=== PATIENT | female | born 1985 | race Caucasian/White ===

== ENCOUNTER 2016-10-03 11:15 | Observation (INO) | payer MEDICAID, SELFPAY ==
[2016-10-03 11:29] VITALS: BMI 23.6
[2016-10-03 11:40] VITALS: BMI 23.6
[2016-10-03 11:53] VITALS: BP 111/64; PULSE 85; RESP 16; TEMP 36.8; O2SAT 100
[2016-10-03 11:58] VITALS: RESP 16
--- NOTE | 2016-10-03 12:08 | HP.PCM_ITS ---
Problem List (1) Opiate withdrawal Status: Acute (2) Heroin abuse Status: Chronic (3) Methamphetamine abuse Status: Chronic (4) Abscess Status: Acute History of Present Illness Date of Admission: 10/03/16 Chief Complaint: heroin withdrawal The patient is a 31 year old F presents voluntarily for acute heroin withdrawal. Patient last use was yesterday. Patient injects heroin and also methamphetamines. Patient denies any other illicit substance use. Patient since her last use, has been having abdominal cramps, restlessness, rhinitis, general malaise. Patient voluntarily presenting for acute heroin withdrawal [ treatment.] Past Medical History Past Medical History (Chronic Problems): Chronic Problems Heroin abuse (Chronic) Methamphetamine abuse (Chronic) Allergies No Known Allergies Allergy (Verified 10/01/16 15:41) Home Medications: Ambulatory Orders Medication Instructions Recorded Smz/Tmp Ds [Bactrim Ds] 1 tablet PO BID #20 tablet 10/01/16 Smoking Status: Current every day smoker Tobacco Use: Cigarettes Alcohol: Heavy Drugs: Heroin, - - Methamphetamines - *Family History Maternal History Items: - - No medical problems Paternal History Items: Cancer - from possible lymphoma Review of Systems Constitutional: Denies: Chills, Fever Eyes: Denies: Blurred vision, Double vision HEENT: Reports: - - Rhinitis. Denies: Head Aches, Sinus Congestion, Sinus Drainage Cardiovascular: Reports: Chest Pain, Claudication, Chest Pressure, Chest Tightness Respiratory: Denies: Shortness of Breath Gastrointestinal: Reports: - - Abdominal cramps. Denies: Nausea, Vomiting Neurological: Reports: - - Restlessness of the lower extremities VTE Information - Inpt Only VTE Present on Admission: No Patient Problems: Active and Suspected Problems Abscess (Acute) Opiate withdrawal (Acute) - Physical Exam General: Alert, Cooperative, No apparent distress, - - Appears much older than stated age HEENT: Atraumatic, Normocephalic Neck: No Nodes, Thyroid Normal Size and Texture Lungs: Clear to auscultation, Normal air movement, No rhonchi, No wheeze Cardiovascular: Regular rate, Regular Rhythm, Normal S1, Normal S2, No murmurs Abdomen: Bowel Sounds Present, Soft, Non Tender, Non-Distended, No Hepato- splenomegaly Extremities: No edema, No Calf Tenderness Skin: - - Swelling in the dorsum of her right hand that is erythematous minimally tender. No fluctuance noted no induration. Patient also has some superficial purulent material in the left antecubital not a definitive abscess at approximately 2 cm by half a centimeter. Patient has a open wound with an eschar in the right antecubital region. No purulent material expressed. Musculoskeletal: No Tenderness to Palpation of Joints or Extremities, No Muscle Wasting Psych/Mental Status: Normal Affect, Appropriate Vital Signs Temp Pulse Resp BP Pulse Ox 36.8 C 85 16 111/64 100 10/03/16 11:53 10/03/16 11:53 10/03/16 11:53 10/03/16 11:53 10/03/16 11:53 Oxygen Delivery Method Room Air Weight: 64.3 kg Body Mass Index (BMI) 23.6 Assessment/Plan Active and Suspected Problems Abscess (Acute) Opiate withdrawal (Acute) 1. Acute heroin withdrawal: Patient voluntary presenting for acute withdrawal treatment. Patient will be initiated on the medical stabilization for opiate withdrawal. Patient will be on the Subutex taper in addition, patient will be on other medications to help her with her other constitutional symptoms. 2. Right arm wound. Positive for methicillin sensitive staph aureus. Continue with Bactrim. Blood cultures were performed on the and are so far negative. Will monitor the wounds on her right arm as well as her left antecubital area. No concern for deep abscess at this point time.
[2016-10-03] MEDS: cloNIDine HCl 0.1 MG Tablet 0.2 MG PO (12:17)
[2016-10-03] MEDS: Buprenorphine HCl 2 MG TAB.SUBL SL ×2 (12:17→19:29)
[2016-10-03] MEDS: 0.9% Normal Saline 1,000 ML 125 ML IV (12:29)
[2016-10-03 12:59] LABS: Absolute Neutrophil Count 2.8 X10^3/uL (2.0-7.7); Basophil# 0.05 X10^3/uL; Basophil% 0.8 % (0-1); Eosinophil# 0.33 X10^3/uL; Eosinophils% 5.5 % (0-5); Hematocrit 39.3 % (37-47); Hemoglobin 12.6 g/dl (12.0-15.0); Lymphocyte % 38.2 % (19-41); Mean Corp Hgb Conc 32.1 g/gl (32-36); Mean Corpuscular Hgb 27.5 pg (27.0-32.0); Mean Corpuscular Volume 85.8 fL (81-99); Mean Platelet Vol. 10.4 fl (6.2-12.0); Monocyte# 0.51 X10^3/uL; Monocyte% 8.5 % (0-10); Neutrophil # 2.83 X10^3/uL (2.7-7.7); Platelet Count 257 K/mm3 (150-450); RBC Distribution Width CV 13.5 % (11.6-14.6); RBC Distribution Width SD 42.5 fl (35.1-43.9); Red Blood Count 4.58 M/mm3 (4.2-5.4)
[2016-10-03 13:00] LABS: POSITIVE COUNT NO; POSITIVE DIFFERENTIAL NO; POSITIVE MORPHOLOGY NO
[2016-10-03 13:12] LABS: ALB/GLOB Ratio 0.9 RATIO (0.9-2.4); AST(SGOT) 8 U/L (15-37); Alanine Aminotransfer ALT/SGPT 14 U/L (12-78); Albumin, Serum 3.6 g/dL (3.4-5.0); Alkaline Phosphatase 69 U/L (45-117); Anion Gap 5 (5-15); BUN 10 mg/dL (7-18); Calcium,Total 8.5 mg/dL (8.5-10.1); Chloride 106 mmol/L (98-107); Creatinine, Serum 0.72 mg/dL (0.55-1.02); EST Glomerular Filtration Rate 101 mL/min (>60); Est Glom Filt Rate - Afr Amer 122 mL/min (>60); Estimated Creatinine Clearance 101.87 ml/min; Globulin 3.8 g/dL (2.3-3.5); Glucose 82 mg/dL (70-110); Potassium 3.6 mmol/L (3.5-5.1); Protein, Total 7.4 g/dL (6.4-8.2); Sodium Level 139 mmol/L (136-145)
[2016-10-03 13:19] LABS: Pregnancy, Serum, hCG Quali. NEGATIVE Negative (0-9 Nonpreg)
[2016-10-03 15:19] VITALS: BP 95/44; PULSE 84; RESP 16; TEMP 37.4; O2SAT 98
[2016-10-03 15:24] VITALS: RESP 16
--- NOTE | 2016-10-03 15:43 | CHAPLAIN ---
patient is trying to nap; pt reports that she is not feeling very good; I give pt my name and information about support; offer to be available to pt; pt says that she will keep that in mind and takes my card; pt says that she has family;
[2016-10-03] MEDS: Tuberculin,Purif.prot.deriv. 50 TU/ML Vial 5 ML ID (16:00)
[2016-10-03] MEDS: Smz/Tmp Ds Tablet 1 TABLET PO (18:04)
[2016-10-03 18:06] VITALS: BP 112/60; PULSE 81; RESP 16; TEMP 36.2
[2016-10-03] MEDS: Methocarbamol 750 MG Tablet PO (18:14)
[2016-10-03 19:04] LABS: Amphetamine Urine VISTA NEGATIVE (<1000 ng/mL); Barbiturate Urine VISTA NEGATIVE (< 200 ng/mL); Benzodiazepine Urine VISTA NEGATIVE (< 200 ng/mL); Cocaine Urine VISTA NEGATIVE (< 300 ng/mL); Ecstacy Urine VISTA NEGATIVE (< 500 ng/mL); Methadone Urine VISTA NEGATIVE (< 300 ng/mL); PCP Urine VISTA NEGATIVE (< 25 ng/mL); THC Urine VISTA NEGATIVE (< 50 ng/mL); Vista UDS pH Range 8
[2016-10-03 21:38] VITALS: BP 110/56; PULSE 65; RESP 14; TEMP 37.2
[2016-10-03] MEDS: Carbidopa/Levodopa 25/100 Tablet PO (22:47)
[2016-10-04] VITALS (8 sets, daily range): BP systolic 110–132; BP diastolic 55–71; PULSE 61–90; RESP 14–18; TEMP 36.7–37.4; O2SAT 97–99
[2016-10-04] MEDS: Buprenorphine HCl 2 MG TAB.SUBL SL ×3 (04:24→20:40)
--- NOTE | 2016-10-04 08:30 | PCM.PN.HOSP ---
Patient Problems: Active and Suspected Problems Abscess (Acute) Opiate withdrawal (Acute) Subjective: Feeling better overall. No abdominal pain or cramps. Vitals/I&O's: Vital Signs Temp Pulse Resp BP Pulse Ox 37.4 C 61 18 122/60 98 10/04/16 05:39 10/04/16 05:39 10/04/16 05:39 10/04/16 05:39 10/03/16 15:19 Oxygen Delivery Method Room Air Weight: 64.3 kg Body Mass Index (BMI) 23.6 Intake and Output for Last 24 Hours 10/02/16 10/03/16 10/04/16 23:59 23:59 23:59 Intake Total 1538 Balance 1538 General: Alert, Cooperative, No apparent distress HEENT: Atraumatic, Normocephalic Psych/Mental Status: Flat Affect, - - Middle eye contact Laboratory Results 10/03/16 12:45: WBC 6.0, RBC 4.58, Hgb 12.6, Hct 39.3, MCV 85.8, MCH 27.5, MCHC 32.1, RDW 13.5, RDW Differential 42.5, Plt Count 257, MPV 10.4, Immature Gran % (Auto) 0.000, Neut % (Auto) 47.0, Lymph % (Auto) 38.2, Fergus % (Auto) 8.5, Eos % (Auto) 5.5 H, Baso % (Auto) 0.8, Absolute Neuts (auto) 2.8, Absolute Lymphs (auto) 2.30, Total Counted Not Reportable 10/03/16 12:45: Sodium 139, Potassium 3.6, Chloride 106, Carbon Dioxide 28.0, Anion Gap 5, BUN 10, Creatinine 0.72, Estim Creat Clear Calc 101.87, Est GFR (MDRD) Af Amer 122, Est GFR (MDRD) Non-Af 101, BUN/Creatinine Ratio 14.0, Glucose 82, Calcium 8.5, Total Bilirubin 0.20, AST 8 L, ALT 14, Alkaline Phosphatase 69, Total Protein 7.4, Albumin 3.6, Globulin 3.8 H, Albumin/Globulin Ratio 0.9 10/03/16 12:45: Serum , Qual NEGATIVE 10/03/16 13:05: HIV 1&2 Ag/Ab, 4th Gen Pending 10/03/16 18:20: Urine Opiates Screen POSITIVE H, Urine Methadone Screen NEGATIVE, Ur Barbiturates Screen NEGATIVE, Ur Phencyclidine Scrn NEGATIVE, Ur Amphetamines Screen NEGATIVE, U Methamphetamin-MDMA NEGATIVE, U Benzodiazepines Scrn NEGATIVE, Urine Cocaine Screen NEGATIVE, U Cannabinoids Screen NEGATIVE, Ur Drug Screen Comment Current Medications Acetaminophen (Tylenol) 650 mg PO Q4H PRN PRN PRN Reason: Temp>99.1F Buprenorphine HCl (Buprenorphine Hcl) 4 mg SL Q8H KAREEM PRN Reason: Taper Stop: 10/06/16 15:59 Last Admin: 10/04/16 04:24 Dose: 4 mg Carbidopa/Levodopa (Sinemet) 1 tablet PO Q8H PRN PRN PRN Reason: RESTLESSNESS Last Admin: 10/03/16 22:47 Dose: 1 tablet Clonidine (Catapres) 0.1 mg PO Q2H PRN PRN PRN Reason: Hot/Cold Sweats or Anxiety Dicyclomine HCl (Bentyl) 20 mg PO Q6H PRN PRN PRN Reason: Abdomnial Discomfort Hydroxyzine Pamoate (Vistaril) 50 mg PO Q6H PRN PRN PRN Reason: Mild Anxiety (score 1/3) Ibuprofen (Motrin) 800 mg PO Q8H PRN PRN PRN Reason: Mild-Moderate Pain (1-5/10) Loperamide HCl (Imodium) 2 - 4 mg PO UD PRN PRN Reason: LOOSE STOOLS Methocarbamol (Methocarbamol) 750 mg PO 4X/DAY PRN PRN Reason: Muscle Aches Last Admin: 10/03/16 18:14 Dose: 750 mg Nicotine (Nicoderm Cq (Pbkc)) 21 mg TRANSDERM. DAILY [facility] Last Admin: 10/03/16 12:33 Dose: 21 mg Nutritional Formula (Lactose Free) (Ensure Enlive) 120 ml PO 4X/DAY [facility] Last Admin: 10/03/16 21:41 Dose: 120 ml Ondansetron HCl (Zofran Odt) 4 mg PO Q6H PRN PRN PRN Reason: NAUSEA Senna (Senokot) 1 tablet PO QHS PRN PRN Reason: Constipation Trimethoprim/Sulfamethoxazole (Bactrim Ds) 1 tablet PO BIDCM [facility] Last Admin: 10/03/16 18:04 Dose: 1 tablet Assessment/Plan Active and Suspected Problems Abscess (Acute) Opiate withdrawal (Acute) 1. Acute heroin withdrawal: Patient voluntary presenting for acute withdrawal treatment. Patient will be initiated on the medical stabilization for opiate withdrawal. Patient will be on the Subutex taper in addition, patient will be on other medications to help her with her other constitutional symptoms. 2. Right arm wound. Positive for methicillin sensitive staph aureus. Continue with Bactrim. Blood cultures were performed on the and are so far negative. Will monitor the wounds on her right arm as well as her left antecubital area. No concern for deep abscess at this point time.
[2016-10-04] MEDS: Smz/Tmp Ds Tablet 1 TABLET PO ×2 (09:51→16:47)
[2016-10-04] MEDS: Methocarbamol 750 MG Tablet PO ×2 (09:55→20:40)
[2016-10-04] MEDS: cloNIDine HCl 0.1 MG Tablet PO (17:53)
[2016-10-05 04:00] VITALS: BP 113/68; PULSE 68; RESP 16; TEMP 36.9
[2016-10-05] MEDS: Buprenorphine HCl 2 MG TAB.SUBL SL ×2 (04:02→16:13)
[2016-10-05] MEDS: Methocarbamol 750 MG Tablet PO (04:03)
[2016-10-05] MEDS: cloNIDine HCl 0.1 MG Tablet PO ×2 (04:03→14:17)
[2016-10-05 07:52] LABS: HIV 1/0/2 SCREEN 4TH GEN Non Reactive (Non Reactive)
[2016-10-05 09:05] VITALS: BP 104/63; PULSE 68; RESP 16; TEMP 36.8; O2SAT 97
[2016-10-05] MEDS: Smz/Tmp Ds Tablet 1 TABLET PO ×2 (09:05→16:14)
--- NOTE | 2016-10-05 10:05 | PCM.PN.HOSP ---
Patient Problems: Active and Suspected Problems Abscess (Acute) Opiate withdrawal (Acute) Subjective: Is feeling better. Says her arms are feeling better as well. Vitals/I&O's: Vital Signs Temp Pulse Resp BP Pulse Ox 36.8 C 68 16 104/63 97 10/05/16 09:05 10/05/16 09:05 10/05/16 09:05 10/05/16 09:05 10/05/16 09:05 Oxygen Delivery Method Room Air Weight: 64.3 kg Body Mass Index (BMI) 23.6 Intake and Output for Last 24 Hours 10/03/16 10/04/16 10/05/16 23:59 23:59 23:59 Intake Total 2238 600 Balance 2238 600 General: Alert, Cooperative, No apparent distress HEENT: Atraumatic, Normocephalic Skin: - - Healing right antecubital wounds with a large scab. No purulence. Patient with some swelling in the dorsum of her right hand little bit more fluctuant and less firm than had been previously. Some very superficial pustular lesions in the left antecubital fossa without cellulitis. Laboratory Results 10/03/16 13:05: HIV 1&2 Ag/Ab, 4th Gen Non Reactive Current Medications Acetaminophen (Tylenol) 650 mg PO Q4H PRN PRN PRN Reason: Temp>99.1F Buprenorphine HCl (Buprenorphine Hcl) 2 mg SL Q12H KAREEM PRN Reason: Taper Stop: 10/06/16 15:59 Last Admin: 10/05/16 04:02 Dose: 2 mg Carbidopa/Levodopa (Sinemet) 1 tablet PO Q8H PRN PRN PRN Reason: RESTLESSNESS Last Admin: 10/03/16 22:47 Dose: 1 tablet Clonidine (Catapres) 0.1 mg PO Q2H PRN PRN PRN Reason: Hot/Cold Sweats or Anxiety Last Admin: 10/05/16 04:03 Dose: 0.1 mg Dicyclomine HCl (Bentyl) 20 mg PO Q6H PRN PRN PRN Reason: Abdomnial Discomfort Hydroxyzine Pamoate (Vistaril) 50 mg PO Q6H PRN PRN PRN Reason: Mild Anxiety (score 1/3) Last Admin: 10/05/16 04:03 Dose: 50 mg Ibuprofen (Motrin) 800 mg PO Q8H PRN PRN PRN Reason: Mild-Moderate Pain (1-5/10) Loperamide HCl (Imodium) 2 - 4 mg PO UD PRN PRN Reason: LOOSE STOOLS Methocarbamol (Methocarbamol) 750 mg PO 4X/DAY PRN PRN Reason: Muscle Aches Last Admin: 10/05/16 04:03 Dose: 750 mg Nicotine (Nicoderm Cq (Pbkc)) 21 mg TRANSDERM. DAILY [facility] Last Admin: 10/05/16 09:05 Dose: 21 mg Nutritional Formula (Lactose Free) (Ensure Enlive) 120 ml PO 4X/DAY [facility] Last Admin: 10/05/16 09:05 Dose: Not Given Ondansetron HCl (Zofran Odt) 4 mg PO Q6H PRN PRN PRN Reason: NAUSEA Senna (Senokot) 1 tablet PO QHS PRN PRN Reason: Constipation Trazodone HCl (Desyrel) 50 mg PO QHS [facility] Last Admin: 10/05/16 01:29 Dose: Not Given Trimethoprim/Sulfamethoxazole (Bactrim Ds) 1 tablet PO BIDCM [facility] Last Admin: 10/05/16 09:05 Dose: 1 tablet Assessment/Plan Active and Suspected Problems Abscess (Acute) Opiate withdrawal (Acute) 1. Acute heroin withdrawal: Patient voluntary presenting for acute withdrawal treatment. Patient will be initiated on the medical stabilization for opiate withdrawal. Patient will be on the Subutex taper in addition, patient will be on other medications to help her with her other constitutional symptoms. Plan is for discharge the morning of the 17 of the patient's last dose of Subutex. 2. Right arm wound. Positive for methicillin sensitive staph aureus. Continue with Bactrim. Blood cultures were performed on the and are so far negative. Will monitor the wounds on her right arm as well as her left antecubital area. No concern for deep abscess at this point time. Patient does have some swelling of the dorsum of her right hand. Convinced that this is an abscess at this time. But may warrant incision and drainage at a later time but does further progress.
[2016-10-05 14:00] VITALS: BP 103/66; PULSE 76; RESP 16; TEMP 36.9; O2SAT 98
[2016-10-05 18:15] VITALS: BP 96/49; PULSE 75; RESP 16; TEMP 36.8; O2SAT 96
[2016-10-05] MEDS: traZODone 50 MG Tablet PO (22:08)
[2016-10-05 22:09] VITALS: BP 107/55; PULSE 77; RESP 16; TEMP 36.8
[2016-10-06 03:50] VITALS: BP 93/56; PULSE 66; RESP 16; TEMP 36.7
[2016-10-06] MEDS: Buprenorphine HCl 2 MG TAB.SUBL SL (03:50)
--- NOTE | 2016-10-06 07:06 | PCM.DC ---
- Discharge Diagnoses Current Active Problems: Current Active and Chronic Problems Abscess (Acute) Opiate withdrawal (Acute) Heroin abuse (Chronic) Methamphetamine abuse (Chronic) You will use the following diet at home:: No restrictions Discharge Activity: Return to Normal Activity, - - Recommendation of avoidance of any activities which could cause irritation to the upper extremity wounds to allow appropriate healing in addition to continued antibiotic therapy. Weight Bearing Status: Weight bearing as tolerated Keep extremity elevated above heart level: - - Elevate arms above heart when seated or sleeping while completing antibiotic therapy. Call your doctor if your incision/area has: Continuous Slow Oozing, Increased Pain/ Swelling, Increased Redness, Foul Smelling Discharge Call your doctor if you observe: Fever of 101 or Higher, Inability to urinate, Inability to have a bowel movement, Shortness of breath, Dizziness, Fainting spells, Uncontrolled pain Instructions: Recognizing and Treating Wound Infection, Abscess Drainage, ED Narcotic Abuse Additional Instructions: Please complete bactrim antibiotic therapy. Allergies/Adverse Reactions: Allergies No Known Allergies Allergy (Verified 10/01/16 15:41) Medications to take at Discharge Smz/Tmp Ds [Bactrim Ds] 1 tablet PO BID #20 tablet 10/01/16 Nicotine [Nicoderm Cq] 21 mg TRANSDERM. DAILY #14 patch 10/06/16 The following prescriptions were given: Nicotine [Nicoderm Cq] 21 mg TRANSDERM. DAILY #14 patch Primary Care Physician: Care Physician,No Primary [Primary Care Provider] - Please follow up with your Primary Care Physician in: Please follow-up w/ PCP to establish. Recommend follow-up 3-5 days. Please Follow Up With: [facility] When: Follow-up with [facility] discharge plan as previously arranged. Proposed Discharge Date: 10/06/16
--- NOTE | 2016-10-06 07:09 | PCM.DC.SUM ---
Discharge Date and Diagnosis - Problem List Patient Problems: Active and Suspected Problems Abscess (Acute) Opiate withdrawal (Acute) Date of Admission: 10/03/16 Date of Discharge: 10/06/16 - Primary Discharge Diagnosis Active and Suspected Problems RUE antecubital fossa infection, drained abscess s/p IVDA Acute Opiate withdrawal (Acute) Tobacco use - Secondary Discharge Diagnosis Chronic Problems Heroin abuse (Chronic) Methamphetamine abuse (Chronic) Hospital Course and Treatment Operations: None Procedures: None Summary of Care Provided: The patient is a 31 y/o F w/ PMHx: Heroin, Methamphetamine, Tobacco abuse who presents to the [facility] on 10/03/16 w/ noted opiate withdrawal onset starting the day of presentation following last dose the evening prior with abdominal pain/cramping, generalized body aches and pains, rhinorrhea, piloerection, fatigue, restless leg, sweating, yawning. Patient interested in attaining clean status. Patient was admitted to [facility], routine labs obtained, patient was initiated and continued on [facility] service protocol with tapering course of Subutex, as needed Seroquel, Librium, Sinemet, Catapres, Bentyl, Vistaril, IV fluids, IV antiemetics, Tylenol as needed for pain. Once patient clinically improved with completion of taper felt appropriate for discharge with [facility] assistance for transition to next level of rehabilitation care. Additionally during admission had noted RUE antecubital fossa abscess s/p drainage, healing with start per ED 10/01/16 on bactrim with removal of overlaying scab, wound RN revaluation and cleansing w/ application of aquacel silver planned daily to open region, dry dressing w/ encouraged WCC follow-up 1 week and PCP follow-up 3-5 days additionally. DAY OF DISCHARGE PROGRESS NOTE: Subjective: Patient without acute event overnight per self and nursing report. Patient denies fever, chills, nausea, emesis, abdominal pain, chest pain or dyspnea. Patient agreeable to discharge to home w/ noted ability to have family assist w/ RUE wound care. Patient will be discharged with establishment with primary care physician within 3-5 days in addition to WCC 1 week as well as [facility] rehabilitation plan. Objective: T 97.5, heart rate 65, BP 94/57, 16, 99% room air. Physical Examination: General: awake, alert, oriented x 3 and cooperative, seated upright in the bed, NAD. Skin: normal color, turgor, no icterus, cyanosis except BL antecubital fossa s/p injections regions, R antecubital fossa w/ drained abscess site medially, TTP, removed small circular scab, minimal drainage noted, product operations associate requested. HEENT: AT/NC, EOMI, PERRLA, mildly dry MM. Lungs: CTA bilaterally, moderate effort, mild decrease BL bases, no rales, ronchi or wheezing; Heart: Regular rate and rhythm; no gallop, rub audible. Abdomen: soft, thin habitus, NTTP, ND, normal BS. Extremities: no cyanosis, clubbing, or edema. Neurological: patient awake, alert, oriented x 3; cognitive function appears intact upon questioning,; pupils equally reactive to light and accomodation; cranial nerves II-XII grossly normal, moving all 4 extremities, strength mildly globally decreased. Psychiatric: affect appears normal, no acute evidence of depressive or anxiety feelings. Assessment and Plan: Please see hospital summary above. Discharge Activity: Return to Normal Activity, - - Recommendation of avoidance of any activities which could cause irritation to the upper extremity wounds to allow appropriate healing in addition to continued antibiotic therapy. Weight Bearing Status: Weight bearing as tolerated Keep extremity elevated above heart level: - - Elevate arms above heart when seated or sleeping while completing antibiotic therapy. Call your doctor if your incision/area has: Continuous Slow Oozing, Increased Pain/ Swelling, Increased Redness, Foul Smelling Discharge Call your doctor if you observe: Fever of 101 or Higher, Inability to urinate, Inability to have a bowel movement, Shortness of breath, Dizziness, Fainting spells, Uncontrolled pain Additional Dressing/Incision Instructions:: Apply aquacel silver dressing, circular to open region only, dry dressing overlay daily. Home Medications: Medications to take at Discharge Smz/Tmp Ds [Bactrim Ds] 1 tablet PO BID #20 tablet 10/01/16 Nicotine [Nicoderm Cq] 21 mg TRANSDERM. DAILY #14 patch 10/06/16 Following Prescrptions Were Given to Patient: Nicotine [Nicoderm Cq] 21 mg TRANSDERM. DAILY #14 patch Primary Care Physician: Care Physician,No Primary [Primary Care Provider] - Please follow up with your Primary Care Physician in: Please follow-up w/ PCP to establish. Recommend follow-up 3-5 days. Please Follow Up With: [facility] When: Follow-up with [facility] discharge plan as previously arranged. Please Follow Up With: [facility] When: 1 week to evalute RUE wound. Patient Instructions: Recognizing and Treating Wound Infection, Abscess Drainage, ED Narcotic Abuse Additional Instructions: Please complete bactrim antibiotic therapy. Disposition: Home Minutes spent on discharge:: 35 Patient Condition:: Fair Meaningful Use Info Meaningful Use Diagnoses (Choose all that apply): None applicable
[2016-10-06 07:56] VITALS: BP 94/57; PULSE 65; RESP 16; TEMP 36.4
[2016-10-06] MEDS: Smz/Tmp Ds Tablet 1 TABLET PO (07:59)
== END 2016-10-06 09:59 | disposition home or self-care (01) | DRG 773 ==
LOC: MS2 04-20 08:03
PROVIDERS: Visit Provider Family Medicine
DX: F11.23 Opioid dependence with withdrawal (principal); F15.10 Other stimulant abuse, uncomplicated; F17.210 Nicotine dependence, cigarettes, uncomplicated; B95.61 Methicillin susceptible Staphylococcus aureus infection as the cause of diseases classified elsewhere; L02.413 Cutaneous abscess of right upper limb
CPT/HCPCS: 80053; 80307; 84703; 85025; 86703; 97802; 99218; J7030; A4216; G0378; G0379

== ENCOUNTER 2017-08-21 12:56 | Inpatient (IN) | payer MEDICAID, SELFPAY ==
[2017-08-21 13:17] VITALS: BMI 23.6
[2017-08-21 13:24] VITALS: BMI 23.7
--- NOTE | 2017-08-21 13:56 | DT_ITS ---
This patient was seen during an EMR downtime August 24, 2017 - August 31, 2017. This patient may have a combination of paper and electronic documentation or all paper documentation. All documentation is viewable within the e-chart portion of [facility] for each patient visit.
--- NOTE | 2017-08-21 14:01 | PCM.HP.STD ---
Problem List (1) Opiate withdrawal Status: Acute (2) Heroin abuse Status: Chronic (3) Methamphetamine abuse Status: Chronic (4) Tobacco dependence due to cigarettes Status: Chronic (5) Hx MRSA infection Status: Chronic History of Present Illness Date of Admission: 08/21/17 Chief Complaint: voluntarily presented to the [facility] requesting inpt admission for medical stabilization for acute opiate withdrawal. The patient is a 31 year old F with a PMH of heroin addiction, tobacco dependence and Meth use who presented to the [facility] office at [facility] on 08/21/17 voluntarily requesting admission to [facility] for medical stabilization for acute opiate withdrawal. She told me she no longer uses intravenous heroin since the MRSA abscess last September but is snorting heroin daily. Her average use is approximately 1 g daily. She occasionally uses methamphetamine-usually once weekly. She denies any significant use of cannabinoids. She does smoke cigarettes and smokes approximately one pack and 1-1/2 days. Denies any history of hepatitis C. She states she has never shared needles. The HIV test done in September 2016 was negative. She elected to have outpatient treatment at discharge from her hospitalization to [facility] in September 2016. She was on Subutex post discharge for a couple months. She states that she relapsed in February has been using ever since. She has 2 children and they are currently in the custody of her mother. She herself is also living with her parents now. Plan for discharge is to go to [facility]. Past Medical History Past Medical History (Chronic Problems): Chronic Problems Tobacco dependence due to cigarettes (Chronic) Hx MRSA infection (Chronic) Methamphetamine abuse (Chronic) Heroin abuse (Chronic) Allergies No Known Allergies Allergy (Verified 10/01/16 15:41) Home Medications: Ambulatory Orders Medication Instructions Recorded Smz/Tmp Ds [Bactrim Ds] 1 tablet PO BID #20 tablet 10/01/16 Nicotine [Nicoderm Cq] 21 mg TRANSDERM. 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 Lives: - - living with her parents currently Smoking Status: Current every day smoker Tobacco Use: Cigarettes Alcohol: Rare Drugs: Heroin, - - Meth - *Family History Maternal History Items: - - No medical problems Paternal History Items: Cancer - from possible lymphoma Review of Systems Constitutional: Denies: Anorexia, Chills, Fever, Night Sweats Eyes: Denies: Vision Change HEENT: Denies: Head Aches, Sinus Congestion, Sinus Drainage Cardiovascular: Denies: Chest Pain, Palpitations Respiratory: Denies: Cough, Shortness of breath at rest, Sputum production Gastrointestinal: Reports: - - Abdominal cramping. Denies: Diarrhea Genitourinary: Denies: Dysuria Musculoskeletal: Reports: Leg Pain. Denies: Joint Pain, Joint Tenderness Skin: Denies: Jaundice, Rash, Wounds Neurological: Reports: - - She is having restless leg. Denies: Focal weakness, Numbness, Tingling Psychiatric: Denies: Suicidal Ideations Endocrine: Denies: Change in Body Habitus Hematologic/ Lymphatic: Denies: Hx of blood clot VTE Information - Inpt Only VTE Present on Admission: No VTE Mechan Device Prophylaxis: None VTE Pharm Prophylaxis ordered?: No Reason prophylaxis not ordered:: Treatment Not Indicated - Physical Exam General: Alert, Oriented x3, Cooperative HEENT: Atraumatic, PERRLA, EOMI, Normocephalic Oral: No Gingival or Mucosal Lesions/ Ulcerations, Dry Mucosa Neck: Supple, No JVD, Negative Carotid Bruits, No Nodes, No Nuchal Rigidity, Trachea Midline Lungs: Clear to auscultation, Normal air movement, No rhonchi, No wheeze, No rales Cardiovascular: Regular rate, Regular Rhythm, Normal S1, Normal S2, No murmurs, No rub noted, No Gallop Abdomen: Bowel Sounds Present, Soft, Non-Distended, Tender - Diffusely tender but no guarding with palpation Extremities: No clubbing, No cyanosis, No edema, - - multiple scars from old injection sites and sclerotic VV UE's Skin: No rashes, No breakdown Musculoskeletal: No Muscle Wasting Neurological: Cranial nerves II-XII grossly intact, Neuro grossly intact Psych/Mental Status: Normal Affect, Appropriate Oxygen Delivery Method Room Air Weight: 142 lb 3.2 oz Body Mass Index (BMI) 23.6 Assessment/Plan All Active Problems Opiate withdrawal (Acute) Abscess (Resolved) Impressions 1. Acute opiate withdrawal 2. Heroin addiction-snorting, approximately 1 g daily 3. Methamphetamine use, usually once a week 4. Tobacco dependence with cigarettes 5. History of an MRSA infection Patient was admitted to the [facility] program and the [facility] protocol for acute opiate withdrawal was initiated. Urine tox screen was positive for opiates but negative for everything else. A serum test was negative. CBC was unremarkable as was the CMP. Hepatitis panel was ordered. Plan is for 180 at discharge. Code Visit Inpatient E&M: 92425 Init Hosp L2
--- NOTE | 2017-08-21 14:04 | HP.PCM_ITS ---
Problem List (1) Opiate withdrawal Status: Acute (2) Heroin abuse Status: Chronic (3) Methamphetamine abuse Status: Chronic (4) Tobacco dependence due to cigarettes Status: Chronic (5) Hx MRSA infection Status: Chronic History of Present Illness Date of Admission: 08/21/17 Chief Complaint: voluntarily presented to the [facility] requesting inpt admission for medical stabilization for acute opiate withdrawal. The patient is a 31 year old F with a PMH of heroin addiction, tobacco dependence and Meth use who presented to the [facility] office at [facility] on 08/21/17 voluntarily requesting admission to [facility] for medical stabilization for acute opiate withdrawal. She told me she no longer uses intravenous heroin since the MRSA abscess last September but is snorting heroin daily. Her average use is approximately 1 g daily. She occasionally uses methamphetamine-usually once weekly. She denies any significant use of cannabinoids. She does smoke cigarettes and smokes approximately one pack and 1 -1/2 days. Denies any history of hepatitis C. She states she has never shared needles. The HIV test done in September 2016 was negative. She elected to have outpatient treatment at discharge from her hospitalization to [facility] in September 2016. She was on Subutex post discharge for a couple months. She states that she relapsed in February has been using ever since. She has 2 children and they are currently in the custody of her mother. She herself is also living with her parents now. Plan for discharge is to go to [facility]. Past Medical History Past Medical History (Chronic Problems): Chronic Problems Tobacco dependence due to cigarettes (Chronic) Hx MRSA infection (Chronic) Methamphetamine abuse (Chronic) Heroin abuse (Chronic) Allergies No Known Allergies Allergy (Verified 10/01/16 15:41) Home Medications: Ambulatory Orders Medication Instructions Recorded Smz/Tmp Ds [Bactrim Ds] 1 tablet PO BID #20 tablet 10/01/16 Nicotine [Nicoderm Cq] 21 mg TRANSDERM. DAILY #14 patch 10/06/16 Surgical History: - - I&D of a MRSA abscess in the antecubital fossa in September of 2016 Psychiatric History: No pertinent psych hx FLAG MAKER History: No pertinent FLAG MAKER history Lives: - - living with her parents currently Smoking Status: Current every day smoker Tobacco Use: Cigarettes Alcohol: Rare Drugs: Heroin, - - Meth - *Family History Maternal History Items: - - No medical problems Paternal History Items: Cancer - from possible lymphoma Review of Systems Constitutional: Denies: Anorexia, Chills, Fever, Night Sweats Eyes: Denies: Vision Change HEENT: Denies: Head Aches, Sinus Congestion, Sinus Drainage Cardiovascular: Denies: Chest Pain, Palpitations Respiratory: Denies: Cough, Shortness of breath at rest, Sputum production Gastrointestinal: Reports: - - Abdominal cramping. Denies: Diarrhea Genitourinary: Denies: Dysuria Musculoskeletal: Reports: Leg Pain. Denies: Joint Pain, Joint Tenderness Skin: Denies: Jaundice, Rash, Wounds Neurological: Reports: - - She is having restless leg. Denies: Focal weakness, Numbness, Tingling Psychiatric: Denies: Suicidal Ideations Endocrine: Denies: Change in Body Habitus Hematologic/ Lymphatic: Denies: Hx of blood clot VTE Information - Inpt Only VTE Present on Admission: No VTE Mechan Device Prophylaxis: None VTE Pharm Prophylaxis ordered?: No Reason prophylaxis not ordered:: Treatment Not Indicated - Physical Exam General: Alert, Oriented x3, Cooperative HEENT: Atraumatic, PERRLA, EOMI, Normocephalic Oral: No Gingival or Mucosal Lesions/ Ulcerations, Dry Mucosa Neck: Supple, No JVD, Negative Carotid Bruits, No Nodes, No Nuchal Rigidity, Trachea Midline Lungs: Clear to auscultation, Normal air movement, No rhonchi, No wheeze, No rales Cardiovascular: Regular rate, Regular Rhythm, Normal S1, Normal S2, No murmurs, No rub noted, No Gallop Abdomen: Bowel Sounds Present, Soft, Non-Distended, Tender - Diffusely tender but no guarding with palpation Extremities: No clubbing, No cyanosis, No edema, - - multiple scars from old injection sites and sclerotic VV UE's Skin: No rashes, No breakdown Musculoskeletal: No Muscle Wasting Neurological: Cranial nerves II-XII grossly intact, Neuro grossly intact Psych/Mental Status: Normal Affect, Appropriate Oxygen Delivery Method Room Air Weight: 142 lb 3.2 oz Body Mass Index (BMI) 23.6 Assessment/Plan All Active Problems Opiate withdrawal (Acute) Abscess (Resolved) Impressions 1. Acute opiate withdrawal 2. Heroin addiction-snorting, approximately 1 g daily 3. Methamphetamine use, usually once a week 4. Tobacco dependence with cigarettes 5. History of an MRSA infection Patient was admitted to the [facility] program and the [facility] protocol for acute opiate withdrawal was initiated. Urine tox screen was positive for opiates but negative for everything else. A serum test was negative. CBC was unremarkable as was the CMP. Hepatitis panel was ordered. Plan is for 180 at discharge. Code Visit Inpatient E&M: 99309 Init Hosp L2
[2017-08-21 15:11] LABS: Hematocrit 40.8 % (37-47); Hemoglobin 13.2 g/dl (12.0-15.0); Mean Corp Hgb Conc 32.4 g/gl (32-36); Mean Corpuscular Hgb 27.8 pg (27.0-32.0); Mean Corpuscular Volume 85.9 fL (81-99); Mean Platelet Vol. 10.3 fl (6.2-12.0); Platelet Count 266 K/mm3 (150-450); RBC Distribution Width CV 13.3 % (11.6-14.6); RBC Distribution Width SD 42.1 fl (35.1-43.9); Red Blood Count 4.75 M/mm3 (4.2-5.4); White Blood Count 6.3 K/mm3 (4.4-11.0)
[2017-08-21] MEDS: Ibuprofen 600 MG Tablet PO (15:12)
[2017-08-21 15:16] LABS: Scan Indicated on CBC? Y/N NO
[2017-08-21 15:28] LABS: Pregnancy, Serum, hCG Quali. NEGATIVE Negative (0-9 Nonpreg)
[2017-08-21 15:41] LABS: ALB/GLOB Ratio 1.1 RATIO (0.9-2.4); AST(SGOT) 8 U/L (15-37); Alanine Aminotransfer ALT/SGPT 10 U/L (13-56); Albumin, Serum 3.5 g/dL (3.2-5.0); Alkaline Phosphatase 61 U/L (45-117); Anion Gap 5 (5-15); BUN 10 mg/dL (7-18); BUN/Creat Ratio 13.7 RATIO (10-20); Calcium,Total 8.4 mg/dL (8.5-10.1); Chloride 105 mmol/L (98-107); Creatinine, Serum 0.73 mg/dL (0.55-1.02); EST Glomerular Filtration Rate 98 mL/min (>60); Est Glom Filt Rate - Afr Amer 119 mL/min (>60); Estimated Creatinine Clearance 100.48 ml/min; Globulin 3.2 g/dL (2.2-4.2); Glucose 73 mg/dL (74-106); Potassium 3.7 mmol/L (3.5-5.1); Protein, Total 6.7 g/dL (6.4-8.2); Sodium Level 140 mmol/L (136-145)
[2017-08-21] MEDS: Buprenorphine HCl 2 MG TAB.SUBL SL ×2 (15:48→22:27)
[2017-08-21 18:43] VITALS: BP 113/60; PULSE 78; RESP 16; TEMP 36.9
[2017-08-21] MEDS: Acetaminophen 500 MG Tablet PO (18:57)
[2017-08-21] MEDS: QUEtiapine 25 MG Tablet PO (18:58)
[2017-08-21 19:17] LABS: Amphetamine Urine VISTA NEGATIVE (<1000 ng/mL); Barbiturate Urine VISTA NEGATIVE (< 200 ng/mL); Benzodiazepine Urine VISTA NEGATIVE (< 200 ng/mL); Cocaine Urine VISTA NEGATIVE (< 300 ng/mL); Ecstacy Urine VISTA NEGATIVE (< 500 ng/mL); Methadone Urine VISTA NEGATIVE (< 300 ng/mL); PCP Urine VISTA NEGATIVE (< 25 ng/mL); THC Urine VISTA NEGATIVE (< 50 ng/mL); Vista UDS pH Range 6
[2017-08-21 22:00] VITALS: BP 104/53; PULSE 66; RESP 16; TEMP 36.9
[2017-08-21] MEDS: traZODone 50 MG Tablet PO (22:27)
[2017-08-22] VITALS (7 sets, daily range): BP systolic 91–114; BP diastolic 54–75; PULSE 76–91; RESP 16–18; TEMP 36.5–37
[2017-08-22] MEDS: Buprenorphine HCl 2 MG TAB.SUBL SL ×3 (07:17→22:43)
[2017-08-22] MEDS: Multivitamins,Ther W-Minerals Tablet 1 TABLET PO (10:00)
[2017-08-22] MEDS: QUEtiapine 25 MG Tablet PO (14:09)
--- NOTE | 2017-08-22 14:34 | PCM.PN.HOSP ---
Subjective: Patient was seen and examined. Denies any new complaints. Admitted yesterday under the [facility] program for medical stabilization for heroine use. Denies any fever or chills or nausea or vomiting or diarrhea. Rest of review of systems were negative. No acute events overnight. Vitals/I&O's: Vital Signs Temp Pulse Resp BP 98.0 F 91 18 114/75 08/22/17 14:00 08/22/17 14:00 08/22/17 14:00 08/22/17 14:00 Oxygen Delivery Method Room Air Weight: 64.501 kg Body Mass Index (BMI) 23.6 Intake and Output for Last 24 Hours 08/20/17 08/21/17 08/22/17 23:59 23:59 23:59 Intake Total 500 / 500 800 / 800 Output Total 250 / 250 Balance 250 / 250 800 / 800 General: Alert, Oriented x3, Cooperative, No apparent distress, - - Sleeping HEENT: Atraumatic, PERRLA, EOMI, Normocephalic Oral: Moist Mucosa Neck: Supple Lungs: Clear to auscultation, Normal air movement Cardiovascular: Regular rate, Regular Rhythm, Normal S1, Normal S2, No murmurs Abdomen: Bowel Sounds Present, Soft, Non Tender, Non-Distended, No Hepato-splenomegaly Extremities: No edema Skin: No rashes Musculoskeletal: No Tenderness to Palpation of Joints or Extremities Lymphatic: No Cervical, Supraclavicular, or Inguinal Adenopathy Neurological: Cranial nerves II-XII grossly intact, Neuro grossly intact Psych/Mental Status: Normal Affect, Appropriate Laboratory Results 08/21/17 14:52: WBC 6.3, RBC 4.75, Hgb 13.2, Hct 40.8, MCV 85.9, MCH 27.8, MCHC 32.4, RDW 13.3, RDW Differential 42.1, Plt Count 266, MPV 10.3 08/21/17 14:52: Sodium 140, Potassium 3.7, Chloride 105, Carbon Dioxide 30.0, Anion Gap 5, BUN 10, Creatinine 0.73, Estim Creat Clear Calc 100.48, Est GFR (MDRD) Af Amer 119, Est GFR (MDRD) Non-Af 98, BUN/Creatinine Ratio 13.7, Glucose 73 L, Calcium 8.4 L, Total Bilirubin 0.30, AST 8 L, ALT 10 L, Alkaline Phosphatase 61, Total Protein 6.7, Albumin 3.5, Globulin 3.2, Albumin/Globulin Ratio 1.1 08/21/17 14:52: Hepatitis A IgM Ab Pending, Hepatitis A Ab Total Pending, Hep Bs Antigen Pending, Hep B Core Total Ab Pending, Hep B Core IgM Ab Pending, Hepatitis C Comment Pending 08/21/17 14:52: Serum , Qual NEGATIVE 08/21/17 18:45: Urine Opiates Screen POSITIVE H, Urine Methadone Screen NEGATIVE, Ur Barbiturates Screen NEGATIVE, Ur Phencyclidine Scrn NEGATIVE, Ur Amphetamines Screen NEGATIVE, U Methamphetamin-MDMA NEGATIVE, U Benzodiazepines Scrn NEGATIVE, Urine Cocaine Screen NEGATIVE, U Cannabinoids Screen NEGATIVE, Ur Drug Screen Comment Current Medications Acetaminophen (Tylenol) 500 mg PO Q4H PRN PRN PRN Reason: Temp > 100.4 F Last Admin: 08/21/17 18:57 Dose: 500 mg Al Hydroxide/Mg Hydroxide (Mylanta Ii) 30 ml PO Q6H PRN PRN PRN Reason: dyspesia Bisacodyl (Dulcolax) 10 mg RECTAL DAILY PRN PRN Reason: Constipation Buprenorphine HCl (Buprenorphine Hcl) 4 mg SL Q8H KAREEM PRN Reason: Taper Stop: 08/24/17 18:59 Last Admin: 08/22/17 07:17 Dose: 4 mg Clonidine (Catapres) 0.1 mg PO Q2H PRN PRN PRN Reason: Hot/Cold Sweats or Anxiety Dicyclomine HCl (Bentyl) 20 mg PO Q6H PRN PRN PRN Reason: Abdomnial Discomfort Hydroxyzine Pamoate (Vistaril Pamoate Capsule) 50 mg PO Q6H PRN PRN PRN Reason: Mild Anxiety (score 1/3) Ibuprofen (Motrin) 600 mg PO Q8H PRN PRN PRN Reason: Mild-Moderate Pain (1-5/10) Last Admin: 08/21/17 15:12 Dose: 600 mg Loperamide HCl (Imodium) 2 - 4 mg PO UD PRN PRN Reason: LOOSE STOOLS Methocarbamol (Methocarbamol) 750 mg PO Q6H PRN PRN PRN Reason: Muscle Aches Multivitamins/Minerals (Multivitamin With Minerals) 1 tablet PO DAILYCM [facility] Last Admin: 08/22/17 10:00 Dose: 1 tablet Nicotine (Nicoderm Cq (Pbkc)) 21 mg TRANSDERM. DAILY [facility] Last Admin: 08/22/17 10:01 Dose: 21 mg Nutritional Formula (Lactose Free) (Ensure Enlive) 120 ml PO 4X/DAY [facility] Last Admin: 08/22/17 14:09 Dose: 120 ml Ondansetron HCl (Zofran Odt) 4 mg PO Q6H PRN PRN PRN Reason: NAUSEA Quetiapine Fumarate (Seroquel) 25 mg PO Q6H PRN PRN PRN Reason: Moderate Anxiety (score 2/3) Last Admin: 08/22/17 14:09 Dose: 25 mg Senna (Senokot) 1 tablet PO QHS PRN PRN Reason: Constipation Trazodone HCl (Desyrel) 50 mg PO QHS [facility] Last Admin: 08/21/17 22:27 Dose: 50 mg Medical Necessity - Tobacco Use Smoking Status: Current every day smoker Tobacco Use: Cigarettes Assessment/Plan All Active Problems Opiate withdrawal (Acute) Abscess (Resolved) 31 y/o with h/o polysubstance use disorder - heroin, nicotine, meth who was admitted 1. Acute opiate withdrawal, stable vitals, on medical stabilisation program, will continue per protocol. 2. Polysubstance use disorder - advised to quit 3. DVT PPx - early ambulation. Code Visit Inpatient E&M: 11814 Subs Hosp L2
--- NOTE | 2017-08-22 14:43 | PN_ITS ---
Subjective: Patient was seen and examined. Denies any new complaints. Admitted yesterday under the [facility] program for medical stabilization for heroine use. Denies any fever or chills or nausea or vomiting or diarrhea. Rest of review of systems were negative. No acute events overnight. Vitals/I&O's: Vital Signs Temp Pulse Resp BP 98.0 F 91 18 114/75 08/22/17 14:00 08/22/17 14:00 08/22/17 14:00 08/22/17 14:00 Oxygen Delivery Method Room Air Weight: 64.501 kg Body Mass Index (BMI) 23.6 Intake and Output for Last 24 Hours 08/20/17 08/21/17 08/22/17 23:59 23:59 23:59 Intake Total 500 / 500 800 / 800 Output Total 250 / 250 Balance 250 / 250 800 / 800 General: Alert, Oriented x3, Cooperative, No apparent distress, - - Sleeping HEENT: Atraumatic, PERRLA, EOMI, Normocephalic Oral: Moist Mucosa Neck: Supple Lungs: Clear to auscultation, Normal air movement Cardiovascular: Regular rate, Regular Rhythm, Normal S1, Normal S2, No murmurs Abdomen: Bowel Sounds Present, Soft, Non Tender, Non-Distended, No Hepato- splenomegaly Extremities: No edema Skin: No rashes Musculoskeletal: No Tenderness to Palpation of Joints or Extremities Lymphatic: No Cervical, Supraclavicular, or Inguinal Adenopathy Neurological: Cranial nerves II-XII grossly intact, Neuro grossly intact Psych/Mental Status: Normal Affect, Appropriate Laboratory Results 08/21/17 14:52: WBC 6.3, RBC 4.75, Hgb 13.2, Hct 40.8, MCV 85.9, MCH 27.8, MCHC 32.4, RDW 13.3, RDW Differential 42.1, Plt Count 266, MPV 10.3 08/21/17 14:52: Sodium 140, Potassium 3.7, Chloride 105, Carbon Dioxide 30.0, Anion Gap 5, BUN 10, Creatinine 0.73, Estim Creat Clear Calc 100.48, Est GFR ( MDRD) Af Amer 119, Est GFR (MDRD) Non-Af 98, BUN/Creatinine Ratio 13.7, Glucose 73 L, Calcium 8.4 L, Total Bilirubin 0.30, AST 8 L, ALT 10 L, Alkaline Phosphatase 61, Total Protein 6.7, Albumin 3.5, Globulin 3.2, Albumin/Globulin Ratio 1.1 08/21/17 14:52: Hepatitis A IgM Ab Pending, Hepatitis A Ab Total Pending, Hep Bs Antigen Pending, Hep B Core Total Ab Pending, Hep B Core IgM Ab Pending, Hepatitis C Comment Pending 08/21/17 14:52: Serum , Qual NEGATIVE 08/21/17 18:45: Urine Opiates Screen POSITIVE H, Urine Methadone Screen NEGATIVE , Ur Barbiturates Screen NEGATIVE, Ur Phencyclidine Scrn NEGATIVE, Ur Amphetamines Screen NEGATIVE, U Methamphetamin-MDMA NEGATIVE, U Benzodiazepines Scrn NEGATIVE, Urine Cocaine Screen NEGATIVE, U Cannabinoids Screen NEGATIVE, Ur Drug Screen Comment Current Medications Acetaminophen (Tylenol) 500 mg PO Q4H PRN PRN PRN Reason: Temp > 100.4 F Last Admin: 08/21/17 18:57 Dose: 500 mg Al Hydroxide/Mg Hydroxide (Mylanta Ii) 30 ml PO Q6H PRN PRN PRN Reason: dyspesia Bisacodyl (Dulcolax) 10 mg RECTAL DAILY PRN PRN Reason: Constipation Buprenorphine HCl (Buprenorphine Hcl) 4 mg SL Q8H KAREEM PRN Reason: Taper Stop: 08/24/17 18:59 Last Admin: 08/22/17 07:17 Dose: 4 mg Clonidine (Catapres) 0.1 mg PO Q2H PRN PRN PRN Reason: Hot/Cold Sweats or Anxiety Dicyclomine HCl (Bentyl) 20 mg PO Q6H PRN PRN PRN Reason: Abdomnial Discomfort Hydroxyzine Pamoate (Vistaril Pamoate Capsule) 50 mg PO Q6H PRN PRN PRN Reason: Mild Anxiety (score 1/3) Ibuprofen (Motrin) 600 mg PO Q8H PRN PRN PRN Reason: Mild-Moderate Pain (1-5/10) Last Admin: 08/21/17 15:12 Dose: 600 mg Loperamide HCl (Imodium) 2 - 4 mg PO UD PRN PRN Reason: LOOSE STOOLS Methocarbamol (Methocarbamol) 750 mg PO Q6H PRN PRN PRN Reason: Muscle Aches Multivitamins/Minerals (Multivitamin With Minerals) 1 tablet PO DAILYCM [facility] Last Admin: 08/22/17 10:00 Dose: 1 tablet Nicotine (Nicoderm Cq (Pbkc)) 21 mg TRANSDERM. DAILY [facility] Last Admin: 08/22/17 10:01 Dose: 21 mg Nutritional Formula (Lactose Free) (Ensure Enlive) 120 ml PO 4X/DAY [facility] Last Admin: 08/22/17 14:09 Dose: 120 ml Ondansetron HCl (Zofran Odt) 4 mg PO Q6H PRN PRN PRN Reason: NAUSEA Quetiapine Fumarate (Seroquel) 25 mg PO Q6H PRN PRN PRN Reason: Moderate Anxiety (score 2/3) Last Admin: 08/22/17 14:09 Dose: 25 mg Senna (Senokot) 1 tablet PO QHS PRN PRN Reason: Constipation Trazodone HCl (Desyrel) 50 mg PO QHS [facility] Last Admin: 08/21/17 22:27 Dose: 50 mg Medical Necessity - Tobacco Use Smoking Status: Current every day smoker Tobacco Use: Cigarettes Assessment/Plan All Active Problems Opiate withdrawal (Acute) Abscess (Resolved) 31 y/o with h/o polysubstance use disorder - heroin, nicotine, meth who was admitted 1. Acute opiate withdrawal, stable vitals, on medical stabilisation program, will continue per protocol. 2. Polysubstance use disorder - advised to quit 3. DVT PPx - early ambulation. Code Visit Inpatient E&M: 12903 Subs Hosp L2
[2017-08-22] MEDS: traZODone 50 MG Tablet PO (22:43)
[2017-08-23] MEDS: Buprenorphine HCl 2 MG TAB.SUBL SL ×2 (06:29→18:27)
[2017-08-23] MEDS: Multivitamins,Ther W-Minerals Tablet 1 TABLET PO (08:08)
[2017-08-23] MEDS: QUEtiapine 25 MG Tablet PO (09:59)
[2017-08-23 10:00] VITALS: BP 106/65; PULSE 75; RESP 18; TEMP 36.8
--- NOTE | 2017-08-23 12:06 | PCM.PN.HOSP ---
Subjective: Patient was seen and examined. Denies any new complains. No fever or chills. ROS is negative. Objective: Physical exam: General: Alert, Oriented x3, Cooperative, No apparent distress HEENT: Atraumatic, PERRLA, EOMI, Normocephalic Oral: Moist Mucosa Neck: Supple Lungs: Clear to auscultation, Normal air movement Cardiovascular: Regular rate, Regular Rhythm, Normal S1, Normal S2, No murmurs Abdomen: Bowel Sounds Present, Soft, Non Tender, Non-Distended, No Hepato-splenomegaly Extremities: No edema Skin: No rashes Musculoskeletal: No Tenderness to Palpation of Joints or Extremities Lymphatic: No Cervical, Supraclavicular, or Inguinal Adenopathy Neurological: Cranial nerves II-XII grossly intact, Neuro grossly intact Psych/Mental Status: Normal Affect, Appropriate Vitals/I&O's: Vital Signs Temp Pulse Resp BP 98.3 F 75 18 106/65 08/23/17 10:00 08/23/17 10:00 08/23/17 10:00 08/23/17 10:00 Oxygen Delivery Method Room Air Weight: 64.501 kg Body Mass Index (BMI) 23.6 Intake and Output for Last 24 Hours 08/21/17 08/22/17 08/23/17 23:59 23:59 23:59 Intake Total 500 / 500 1840 / 1840 Output Total 250 / 250 Balance 250 / 250 1840 / 1840 Current Medications Acetaminophen (Tylenol) 500 mg PO Q4H PRN PRN PRN Reason: Temp > 100.4 F Last Admin: 08/21/17 18:57 Dose: 500 mg Al Hydroxide/Mg Hydroxide (Mylanta Ii) 30 ml PO Q6H PRN PRN PRN Reason: dyspesia Bisacodyl (Dulcolax) 10 mg RECTAL DAILY PRN PRN Reason: Constipation Buprenorphine HCl (Buprenorphine Hcl) 2 mg SL Q12H KAREEM PRN Reason: Taper Stop: 08/24/17 18:59 Last Admin: 08/23/17 06:29 Dose: 2 mg Clonidine (Catapres) 0.1 mg PO Q2H PRN PRN PRN Reason: Hot/Cold Sweats or Anxiety Dicyclomine HCl (Bentyl) 20 mg PO Q6H PRN PRN PRN Reason: Abdomnial Discomfort Hydroxyzine Pamoate (Vistaril Pamoate Capsule) 50 mg PO Q6H PRN PRN PRN Reason: Mild Anxiety (score 1/3) Ibuprofen (Motrin) 600 mg PO Q8H PRN PRN PRN Reason: Mild-Moderate Pain (1-5/10) Last Admin: 08/21/17 15:12 Dose: 600 mg Loperamide HCl (Imodium) 2 - 4 mg PO UD PRN PRN Reason: LOOSE STOOLS Methocarbamol (Methocarbamol) 750 mg PO Q6H PRN PRN PRN Reason: Muscle Aches Multivitamins/Minerals ([facility]ivitamin With Minerals) [facility] Last Admin: 08/23/17 08:08 Dose: 1 tablet Nicotine (Nicoderm Cq (Pbkc)) 21 mg TRANSDERM. DAILY [facility] Last Admin: 08/23/17 09:45 Dose: 21 mg Nutritional Formula (Lactose Free) (Ensure Enlive) 120 ml PO 4X/DAY [facility] Last Admin: 08/23/17 09:44 Dose: 120 ml Ondansetron HCl (Zofran Odt) 4 mg PO Q6H PRN PRN PRN Reason: NAUSEA Quetiapine Fumarate (Seroquel) 25 mg PO Q6H PRN PRN PRN Reason: Moderate Anxiety (score 2/3) Last Admin: 08/23/17 09:59 Dose: 25 mg Senna (Senokot) 1 tablet PO QHS PRN PRN Reason: Constipation Trazodone HCl (Desyrel) 50 mg PO QHS [facility] Last Admin: 08/22/17 22:43 Dose: 50 mg Medical Necessity - Tobacco Use Smoking Status: Current every day smoker Tobacco Use: Cigarettes Assessment/Plan All Active Problems Opiate withdrawal (Acute) Abscess (Resolved) 31 y/o with h/o polysubstance use disorder - heroin, nicotine, methamphetamine use disorder, who was admitted with opiate withdrawal symptoms. 1. Acute opiate withdrawal, improving on [facility] protocol, will continue to monitor. 2. Polysubstance use disorder - advised to quit 3. DVT PPx - early ambulation. 4. Disposition: DC in am if improved. Code Visit Inpatient E&M: 74707 Subs Hosp L2
--- NOTE | 2017-08-23 12:16 | PN_ITS ---
Subjective: Patient was seen and examined. Denies any new complains. No fever or chills. ROS is negative. Objective: Physical exam: General: Alert, Oriented x3, Cooperative, No apparent distress HEENT: Atraumatic, PERRLA, EOMI, Normocephalic Oral: Moist Mucosa Neck: Supple Lungs: Clear to auscultation, Normal air movement Cardiovascular: Regular rate, Regular Rhythm, Normal S1, Normal S2, No murmurs Abdomen: Bowel Sounds Present, Soft, Non Tender, Non-Distended, No Hepato- splenomegaly Extremities: No edema Skin: No rashes Musculoskeletal: No Tenderness to Palpation of Joints or Extremities Lymphatic: No Cervical, Supraclavicular, or Inguinal Adenopathy Neurological: Cranial nerves II-XII grossly intact, Neuro grossly intact Psych/Mental Status: Normal Affect, Appropriate Vitals/I&O's: Vital Signs Temp Pulse Resp BP 98.3 F 75 18 106/65 08/23/17 10:00 08/23/17 10:00 08/23/17 10:00 08/23/17 10:00 Oxygen Delivery Method Room Air Weight: 64.501 kg Body Mass Index (BMI) 23.6 Intake and Output for Last 24 Hours 08/21/17 08/22/17 08/23/17 23:59 23:59 23:59 Intake Total 500 / 500 1840 / 1840 Output Total 250 / 250 Balance 250 / 250 1840 / 1840 Current Medications Acetaminophen (Tylenol) 500 mg PO Q4H PRN PRN PRN Reason: Temp > 100.4 F Last Admin: 08/21/17 18:57 Dose: 500 mg Al Hydroxide/Mg Hydroxide (Mylanta Ii) 30 ml PO Q6H PRN PRN PRN Reason: dyspesia Bisacodyl (Dulcolax) 10 mg RECTAL DAILY PRN PRN Reason: Constipation Buprenorphine HCl (Buprenorphine Hcl) 2 mg SL Q12H [facility] PRN Reason: Taper Stop: 08/24/17 18:59 Last Admin: 08/23/17 06:29 Dose: 2 mg Clonidine (Catapres) 0.1 mg PO Q2H PRN PRN PRN Reason: Hot/Cold Sweats or Anxiety Dicyclomine HCl (Bentyl) 20 mg PO Q6H PRN PRN PRN Reason: Abdomnial Discomfort Hydroxyzine Pamoate (Vistaril Pamoate Capsule) 50 mg PO Q6H PRN PRN PRN Reason: Mild Anxiety (score 1/3) Ibuprofen (Motrin) 600 mg PO Q8H PRN PRN PRN Reason: Mild-Moderate Pain (1-5/10) Last Admin: 08/21/17 15:12 Dose: 600 mg Loperamide HCl (Imodium) 2 - 4 mg PO UD PRN PRN Reason: LOOSE STOOLS Methocarbamol (Methocarbamol) 750 mg PO Q6H PRN PRN PRN Reason: Muscle Aches Multivitamins/Minerals ([facility]) [facility] Last Admin: 08/23/17 08:08 Dose: 1 tablet Nicotine (Nicoderm Cq (Pbkc)) 21 mg TRANSDERM. DAILY [facility] Last Admin: 08/23/17 09:45 Dose: 21 mg Nutritional Formula (Lactose Free) (Ensure Enlive) 120 ml PO 4X/DAY [facility] Last Admin: 08/23/17 09:44 Dose: 120 ml Ondansetron HCl (Zofran Odt) 4 mg PO Q6H PRN PRN PRN Reason: NAUSEA Quetiapine Fumarate (Seroquel) 25 mg PO Q6H PRN PRN PRN Reason: Moderate Anxiety (score 2/3) Last Admin: 08/23/17 09:59 Dose: 25 mg Senna (Senokot) 1 tablet PO QHS PRN PRN Reason: Constipation Trazodone HCl (Desyrel) 50 mg PO QHS [facility] Last Admin: 08/22/17 22:43 Dose: 50 mg Medical Necessity - Tobacco Use Smoking Status: Current every day smoker Tobacco Use: Cigarettes Assessment/Plan All Active Problems Opiate withdrawal (Acute) Abscess (Resolved) 31 y/o with h/o polysubstance use disorder - heroin, nicotine, methamphetamine use disorder, who was admitted with opiate withdrawal symptoms. 1. Acute opiate withdrawal, improving on [facility] protocol, will continue to monitor. 2. Polysubstance use disorder - advised to quit 3. DVT PPx - early ambulation. 4. Disposition: DC in am if improved. Code Visit Inpatient E&M: 48663 Subs Hosp L2
[2017-08-23 14:00] VITALS: BP 129/71; PULSE 80; RESP 18; TEMP 36.8
[2017-08-23 16:00] VITALS: RESP 18
[2017-08-23 16:07] LABS: HEPATITIS B SURFACE AG Negative (Negative); Hepatitis A AB, Total Negative (Negative); Hepatitis A IgM Antibody Negative (Negative); Hepatitis B Core AB IgM Negative (Negative); Hepatitis B Core Ab Total Negative (Negative); Hepatitis C Ab <0.1 s/co ratio (0.0-0.9)
[2017-08-23 18:00] VITALS: BP 111/65; PULSE 79; RESP 18; TEMP 36.8
[2017-08-23 22:00] VITALS: BP 118/71; PULSE 77; RESP 15; TEMP 36.9
[2017-08-23] MEDS: traZODone 50 MG Tablet PO (22:34)
[2017-08-31 11:56] LABS: Hep B Surface Antibodies Non Reactive (.)
== END 2017-08-24 10:06 | disposition home or self-care (01) | DRG 435 ==
PROVIDERS: Admitting Provider Internal Medicine; Visit Provider Internal Medicine
DX: F11.23 Opioid dependence with withdrawal (principal); F17.210 Nicotine dependence, cigarettes, uncomplicated; Z86.14 Personal history of Methicillin resistant Staphylococcus aureus infection; F15.90 Other stimulant use, unspecified, uncomplicated
CPT/HCPCS: 80053; 80307; 84703; 85027; 86704; 86705; 86706; 86708; 86709; 86803; 87340; 97802

== ENCOUNTER 2018-01-26 13:02 | Observation (INO) | payer MEDICAID, SELFPAY ==
--- NOTE | 2018-01-26 13:22 | PCM.HP.STD ---
Problem List (1) Opiate withdrawal Status: Acute (2) Heroin abuse Status: Chronic (3) Hx MRSA infection Status: Chronic (4) Methamphetamine abuse Status: Chronic (5) Tobacco dependence due to cigarettes Status: Chronic History of Present Illness Date of Admission: 01/26/18 Chief Complaint: Generalized anxiety The patient is a 32 year old F medical history significant for polysubstance abuse including heroin he was on admission in August 2017 underwent medical stabilization for opioid dependence using the [facility] protocol patient states she relapsed almost immediately after being discharged. She presents with generalized anxiety. Patient in addition also did complain of episodic hot and cold sweat. Also did complain of abdominal cramps as well as lower extremity cramps. An assessment of acute opioid withdrawal was made admitted to regular nursing floor for medical stabilization Past Medical History Past Medical History (Chronic Problems): Chronic Problems Tobacco dependence due to cigarettes (Chronic) Hx MRSA infection (Chronic) Methamphetamine abuse (Chronic) Heroin abuse (Chronic) Allergies No Known Allergies Allergy (Verified 10/01/16 15:41) Home Medications: Ambulatory Orders Medication Instructions Recorded NK 01/26/18 Surgical History: - - I&D of a MRSA abscess in the antecubital fossa in September of 2016 Psychiatric History: No pertinent psych hx [employer] History: No pertinent [employer] history Smoking Status: Current every day smoker - *Family History Maternal History Items: - - No medical problems Paternal History Items: Cancer - from possible lymphoma Review of Systems Constitutional: Reports: Night Sweats, Malaise Eyes: Denies: Blurred vision HEENT: Denies: Head Aches, Sinus Congestion, Sinus Drainage Cardiovascular: Denies: Chest Pain, Orthopnea, Palpitations, Paroxysmal Noc. Dyspnea Respiratory: Denies: Cough, Shortness of breath at rest, Shortness of breath upon exertion, Sputum production Gastrointestinal: Reports: Abdominal Pain, Nausea Genitourinary: Denies: Dysuria, Frequency, Hematuria, Urgency Musculoskeletal: Reports: Leg Pain Skin: Denies: Rash Neurological: Denies: Focal weakness, Numbness, Tingling Psychiatric: Reports: Anxiety Hematologic/ Lymphatic: Denies: Easy Bruising, Easy Bleeding VTE Information - Inpt Only VTE Present on Admission: No VTE Mechan Device Prophylaxis: None VTE Pharm Prophylaxis ordered?: No Reason prophylaxis not ordered:: Treatment Not Indicated Objective: GENERAL: cooperative but patient appears anxious HEENT: Atraumatic; EYES; Anicteric, Normal Conjunctiva NECK; supple, normal thyroid, no distended JVD. RESPIRATORY: Diminished to auscultation bilaterally, CARDIOVASCULAR: Regular S1 S2, no audible murmurs GI: soft, non-tender, normoactive bowel sounds, : No Renal angle tenderness; EXTREMITIES: No edema, no clubbing, no cyanosis. MUSCULOSKELETAL: No Joint Tenderness; no muscle waisting NEURO: Awake; no lateralizing signs. SKIN: No Rash PSYCH; Normal affect Assessment/Plan All Active Problems Opiate withdrawal (Acute) Abscess (Resolved) Patient is a 32-year-old lady with history of polysubstance abuse presenting with acute opioid withdrawal 1. Acute opioid withdrawal patient has been admitted to regular nursing floor for medical stabilization using Subutex 2. Heroine dependence patient was counseled on cessation plan is for patient to follow-up with 118 following her medical stabilization 3. Substance abuse including heroin as well as meth 4. Tobacco dependence counseled on cessation, offered nicotine patch for tobacco cravings 5. DVT prophylaxis low risk did encourage early ambulation Code Visit Inpatient E&M: [id number] [facility] Hosp L3
[2018-01-26 13:43] VITALS: BMI 21.1
[2018-01-26 13:52] VITALS: BP 120/77; PULSE 68; RESP 16; TEMP 36.5; O2SAT 100
[2018-01-26] MEDS: Buprenorphine HCl 2 MG TAB.SUBL SL ×2 (13:58→21:47)
[2018-01-26] MEDS: chlordiazePOXIDE 25 MG Capsule PO ×3 (13:58→21:47)
[2018-01-26 14:00] VITALS: BP 120/77; PULSE 66; RESP 16; TEMP 36.5
[2018-01-26 14:07] LABS: Absolute Lymphocyte Count 1.84 X10^3/ul (0.83-4.51); Absolute Neutrophil Count 4.9 X10^3/uL (2.0-7.7); Basophil# 0.03 X10^3/uL; Basophil% 0.4 % (0-1); Eosinophil# 0.23 X10^3/uL; Eosinophils% 3.1 % (0-5); Hematocrit 40.3 % (37-47); Hemoglobin 13.3 g/dl (12.0-15.0); Lymphocyte # 1.84 X10^3/ul (4.0); Mean Corpuscular Hgb 28.7 pg (27.0-32.0); Mean Platelet Vol. 10.6 fl (6.2-12.0); Monocyte# 0.33 X10^3/uL; Monocyte% 4.5 % (0-10); Neutrophil # 4.93 X10^3/uL (2.7-7.7); Neutrophil % 66.9 % (47-70); Platelet Count 241 K/mm3 (150-450); RBC Distribution Width CV 12.4 % (11.6-14.6); RBC Distribution Width SD 38.9 fl (35.1-43.9); Red Blood Count 4.63 M/mm3 (4.2-5.4); White Blood Count 7.4 K/mm3 (4.4-11.0)
[2018-01-26 14:12] LABS: International Normalized Ratio 1.1; POSITIVE COUNT NO; POSITIVE DIFFERENTIAL NO; POSITIVE MORPHOLOGY NO; Prothrombin Time (Protime)PT. 13.9 SECONDS (11.7-14.9)
[2018-01-26 14:32] LABS: Alcohol, Blood (Medical)-Serum < 3.0 mg/dL
[2018-01-26 14:38] LABS: ALB/GLOB Ratio 1.1 RATIO (0.9-2.4); AST(SGOT) 10 U/L (15-37); Alanine Aminotransfer ALT/SGPT 14 U/L (13-56); Albumin, Serum 3.6 g/dL (3.2-5.0); Alkaline Phosphatase 54 U/L (45-117); Anion Gap 5 (5-15); BUN 12 mg/dL (7-18); BUN/Creat Ratio 17.4 RATIO (10-20); Calcium,Total 8.4 mg/dL (8.5-10.1); Chloride 104 mmol/L (98-107); Creatinine, Serum 0.69 mg/dL (0.55-1.02); EST Glomerular Filtration Rate 104 mL/min (>60); Est Glom Filt Rate - Afr Amer 126 mL/min (>60); Estimated Creatinine Clearance 105.33 ml/min; Globulin 3.4 g/dL (2.2-4.2); Glucose 91 mg/dL (74-106); Pregnancy, Serum, hCG Quali. NEGATIVE Negative (0-9 Nonpreg); Sodium Level 139 mmol/L (136-145)
[2018-01-26 17:40] VITALS: BP 116/67; PULSE 80; RESP 16; TEMP 36.8
[2018-01-26 21:45] VITALS: BP 113/70; PULSE 83; RESP 16; TEMP 36.8; O2SAT 96
[2018-01-26] MEDS: Famotidine 20 MG Tablet PO (21:48)
[2018-01-26] MEDS: traZODone 50 MG Tablet PO (21:48)
[2018-01-27] VITALS (8 sets, daily range): BP systolic 111–127; BP diastolic 49–81; PULSE 60–97; RESP 16; TEMP 36.6–36.9; O2SAT 99–100
[2018-01-27] MEDS: chlordiazePOXIDE 25 MG Capsule PO ×3 (01:48→09:08)
[2018-01-27] MEDS: Buprenorphine HCl 2 MG TAB.SUBL SL ×3 (05:35→21:36)
--- NOTE | 2018-01-27 08:57 | PCM.PN.HOSP ---
Subjective: Patient is a 32-year-old lady with history of polysubstance abuse presenting with acute opioid withdrawal 01/27/2018: Patient seen still has active signs of withdrawal complaining of hot and cold sweats. Also complains of being anxious as well as having abdominal and lower extremity cramps Objective: GENERAL: cooperative but patient appears anxious HEENT: Atraumatic; EYES; Anicteric, Normal Conjunctiva NECK; supple, normal thyroid, no distended JVD. RESPIRATORY: Diminished to auscultation bilaterally, CARDIOVASCULAR: Regular S1 S2, no audible murmurs GI: soft, non-tender, normoactive bowel sounds, : No Renal angle tenderness; EXTREMITIES: No edema, no clubbing, no cyanosis. MUSCULOSKELETAL: No Joint Tenderness; no muscle waisting NEURO: Awake; no lateralizing signs. SKIN: No Rash PSYCH; Normal affect Vitals/I&O's: Vital Signs Temp Pulse Resp BP Pulse Ox 98.2 F 97 16 121/74 H 96 01/27/18 05:39 01/27/18 05:39 01/27/18 05:39 01/27/18 05:39 01/26/18 21:45 Oxygen Delivery Method Room Air Weight: 57.6 kg Body Mass Index (BMI) 21.1 Intake and Output for Last 24 Hours 01/25/18 01/26/18 01/27/18 23:59 23:59 23:59 Intake Total 500 / 500 500 / 500 Balance 500 / 500 500 / 500 Laboratory Results 01/26/18 13:54: WBC 7.4, RBC 4.63, Hgb 13.3, Hct 40.3, MCV 87.0, MCH 28.7, MCHC 33.0, RDW 12.4, RDW Differential 38.9, Plt Count 241, MPV 10.6, Immature Gran % (Auto) 0.100, Neut % (Auto) 66.9, Lymph % (Auto) 25.0, [place] % (Auto) 4.5, Eos % (Auto) 3.1, Baso % (Auto) 0.4, Absolute Neuts (auto) 4.9, Absolute Lymphs (auto) 1.84, Total Counted Not Reportable 01/26/18 13:54: PT 13.9, INR 1.1 01/26/18 13:54: Sodium 139, Potassium 4.0, Chloride 104, Carbon Dioxide 30.0, Anion Gap 5, BUN 12, Creatinine 0.69, Estim Creat Clear Calc 105.33, Est GFR (MDRD) Af Amer 126, Est GFR (MDRD) Non-Af 104, BUN/Creatinine Ratio 17.4, Glucose 91, Calcium 8.4 L, Total Bilirubin 0.20, AST 10 L, ALT 14, Alkaline Phosphatase 54, Total Protein 7.0, Albumin 3.6, Globulin 3.4, Albumin/Globulin Ratio 1.1 01/26/18 13:54: Ethyl Alcohol < 3.0 01/26/18 13:54: Serum , Qual NEGATIVE Current Medications Acetaminophen (Tylenol) 500 mg PO Q4H PRN PRN PRN Reason: Temp > 100.4 F Al Hydroxide/Mg Hydroxide (Mylanta Ii) 30 ml PO Q6H PRN PRN PRN Reason: dyspesia Bisacodyl (Dulcolax) 10 mg RECTAL DAILY PRN PRN Reason: Constipation Buprenorphine HCl (Buprenorphine Hcl) 4 mg SL Q8H [facility]; Taper Stop: 01/29/18 17:29 Last Admin: 01/27/18 05:35 Dose: 4 mg Chlordiazepoxide (Librium) 25 mg PO Q4H K[facility] Stop: 01/27/18 09:31 Last Admin: 01/27/18 05:35 Dose: 25 mg Chlordiazepoxide (Librium) 25 mg PO Q6H PRN PRN PRN Reason: Moderate-Severe Anxiety Clonidine (Catapres) 0.1 mg PO Q2H PRN PRN PRN Reason: Hot/Cold Sweats or Anxiety Dicyclomine HCl (Bentyl) 20 mg PO Q6H PRN PRN PRN Reason: Abdomnial Discomfort Famotidine (Pepcid) 20 mg PO BID [facility] Last Admin: 01/26/18 21:48 Dose: 20 mg Hydroxyzine HCl (Vistaril Vial) 50 mg IM Q6H PRN PRN PRN Reason: Breakthrough Anxiety Hydroxyzine Pamoate (Vistaril Pamoate Capsule) 50 mg PO Q6H PRN PRN PRN Reason: Mild Anxiety Ibuprofen (Motrin) 600 mg PO Q8H PRN PRN PRN Reason: Mild-Moderate Pain (1-5/10) Influenza Virus Vaccine Quadrival (Fluarix/Fluzone) 0.5 ml IM .ONCE ONE Stop: 01/27/18 10:01 Loperamide HCl (Imodium) 2 - 4 mg PO UD PRN PRN Reason: LOOSE STOOLS Magnesium Hydroxide (Milk Of Magnesia) 30 ml PO DAILY PRN PRN PRN Reason: Constipation Methocarbamol (Methocarbamol) 750 mg PO Q6H PRN PRN PRN Reason: Muscle Aches Nicotine (Nicoderm Cq (Pbkc)) 21 mg TRANSDERM. DAILY [facility] Nutritional Formula (Lactose Free) (Ensure Enlive) 120 ml PO 4X/DAY [facility] Last Admin: 01/26/18 21:48 Dose: 120 ml Ondansetron HCl (Zofran Odt) 4 mg PO Q6H PRN PRN PRN Reason: NAUSEA Pramipexole Dihydrochloride (Mirapex) 0.25 mg PO Q12H PRN PRN PRN Reason: Restless Legs Senna (Senokot) 1 tablet PO QHS PRN PRN Reason: Constipation Sodium Chloride () 5 - 30 ml IV UD PRN PRN Reason: SALINE FLUSH Trazodone HCl (Desyrel) 50 mg PO QHS [facility] Last Admin: 01/26/18 21:48 Dose: 50 mg Medical Necessity - Tobacco Use Smoking Status: Current every day smoker Assessment/Plan All Active Problems Opiate withdrawal (Acute) Abscess (Resolved) Patient is a 32-year-old lady with history of polysubstance abuse presenting with acute opioid withdrawal 1. Acute opioid withdrawal patient has been admitted to regular nursing floor for medical stabilization using Subutex 2. Heroine dependence patient was counseled on cessation plan is for patient to follow-up with 118 following her medical stabilization 3. Substance abuse including heroin as well as meth 4. Tobacco dependence counseled on cessation, offered nicotine patch for tobacco cravings 5. DVT prophylaxis low risk did encourage early ambulation Code Visit Inpatient E&M: 97509 Subs Hosp L3
--- NOTE | 2018-01-27 09:01 | PN_ITS ---
Subjective: Patient is a 32-year-old lady with history of polysubstance abuse presenting with acute opioid withdrawal 01/27/2018: Patient seen still has active signs of withdrawal complaining of hot and cold sweats. Also complains of being anxious as well as having abdominal and lower extremity cramps Objective: GENERAL: cooperative but patient appears anxious HEENT: Atraumatic; EYES; Anicteric, Normal Conjunctiva NECK; supple, normal thyroid, no distended JVD. RESPIRATORY: Diminished to auscultation bilaterally, CARDIOVASCULAR: Regular S1 S2, no audible murmurs GI: soft, non-tender, normoactive bowel sounds, : No Renal angle tenderness; EXTREMITIES: No edema, no clubbing, no cyanosis. MUSCULOSKELETAL: No Joint Tenderness; no muscle waisting NEURO: Awake; no lateralizing signs. SKIN: No Rash PSYCH; Normal affect Vitals/I&O's: Vital Signs Temp Pulse Resp BP Pulse Ox 98.2 F 97 16 121/74 H 96 01/27/18 05:39 01/27/18 05:39 01/27/18 05:39 01/27/18 05:39 01/26/18 21:45 Oxygen Delivery Method Room Air Weight: 57.6 kg Body Mass Index (BMI) 21.1 Intake and Output for Last 24 Hours 01/25/18 01/26/18 01/27/18 23:59 23:59 23:59 Intake Total 500 / 500 500 / 500 Balance 500 / 500 500 / 500 Laboratory Results 01/26/18 13:54: WBC 7.4, RBC 4.63, Hgb 13.3, Hct 40.3, MCV 87.0, MCH 28.7, MCHC 33.0, RDW 12.4, RDW Differential 38.9, Plt Count 241, MPV 10.6, Immature Gran % (Auto) 0.100, Neut % (Auto) 66.9, Lymph % (Auto) 25.0, [place] % (Auto) 4.5, Eos % (Auto) 3.1, Baso % (Auto) 0.4, Absolute Neuts (auto) 4.9, Absolute Lymphs (auto) 1.84, Total Counted Not Reportable 01/26/18 13:54: PT 13.9, INR 1.1 01/26/18 13:54: Sodium 139, Potassium 4.0, Chloride 104, Carbon Dioxide 30.0, Anion Gap 5, BUN 12, Creatinine 0.69, Estim Creat Clear Calc 105.33, Est GFR (MDRD) Af Amer 126, Est GFR (MDRD) Non-Af 104, BUN/Creatinine Ratio 17.4, Glucose 91, Calcium 8.4 L, Total Bilirubin 0.20, AST 10 L, ALT 14, Alkaline Phosphatase 54, Total Protein 7.0, Albumin 3.6, Globulin 3.4, Albumin/Globulin Ratio 1.1 01/26/18 13:54: Ethyl Alcohol < 3.0 01/26/18 13:54: Serum , Qual NEGATIVE Current Medications Acetaminophen (Tylenol) 500 mg PO Q4H PRN PRN PRN Reason: Temp > 100.4 F Al Hydroxide/Mg Hydroxide (Mylanta Ii) 30 ml PO Q6H PRN PRN PRN Reason: dyspesia Bisacodyl (Dulcolax) 10 mg RECTAL DAILY PRN PRN Reason: Constipation Buprenorphine HCl (Buprenorphine Hcl) 4 mg SL Q8H [facility]; Taper Stop: 01/29/18 17:29 Last Admin: 01/27/18 05:35 Dose: 4 mg Chlordiazepoxide (Librium) 25 mg PO Q4H [facility] Stop: 01/27/18 09:31 Last Admin: 01/27/18 05:35 Dose: 25 mg Chlordiazepoxide (Librium) 25 mg PO Q6H PRN PRN PRN Reason: Moderate-Severe Anxiety Clonidine (Catapres) 0.1 mg PO Q2H PRN PRN PRN Reason: Hot/Cold Sweats or Anxiety Dicyclomine HCl (Bentyl) 20 mg PO Q6H PRN PRN PRN Reason: Abdomnial Discomfort Famotidine (Pepcid) 20 mg PO BID [facility] Last Admin: 01/26/18 21:48 Dose: 20 mg Hydroxyzine HCl (Vistaril Vial) 50 mg IM Q6H PRN PRN PRN Reason: Breakthrough Anxiety Hydroxyzine Pamoate (Vistaril Pamoate Capsule) 50 mg PO Q6H PRN PRN PRN Reason: Mild Anxiety Ibuprofen (Motrin) 600 mg PO Q8H PRN PRN PRN Reason: Mild-Moderate Pain (1-5/10) Influenza Virus Vaccine Quadrival (Fluarix/Fluzone) 0.5 ml IM .ONCE ONE Stop: 01/27/18 10:01 Loperamide HCl (Imodium) 2 - 4 mg PO UD PRN PRN Reason: LOOSE STOOLS Magnesium Hydroxide (Milk Of Magnesia) 30 ml PO DAILY PRN PRN PRN Reason: Constipation Methocarbamol (Methocarbamol) 750 mg PO Q6H PRN PRN PRN Reason: Muscle Aches Nicotine (Nicoderm Cq (Pbkc)) 21 mg TRANSDERM. DAILY [facility] Nutritional Formula (Lactose Free) (Ensure Enlive) 120 ml PO 4X/DAY [facility] Last Admin: 01/26/18 21:48 Dose: 120 ml Ondansetron HCl (Zofran Odt) 4 mg PO Q6H PRN PRN PRN Reason: NAUSEA Pramipexole Dihydrochloride (Mirapex) 0.25 mg PO Q12H PRN PRN PRN Reason: Restless Legs Senna (Senokot) 1 tablet PO QHS PRN PRN Reason: Constipation Sodium Chloride () 5 - 30 ml IV UD PRN PRN Reason: SALINE FLUSH Trazodone HCl (Desyrel) 50 mg PO QHS [facility] Last Admin: 01/26/18 21:48 Dose: 50 mg Medical Necessity - Tobacco Use Smoking Status: Current every day smoker Assessment/Plan All Active Problems Opiate withdrawal (Acute) Abscess (Resolved) Patient is a 32-year-old lady with history of polysubstance abuse presenting with acute opioid withdrawal 1. Acute opioid withdrawal patient has been admitted to regular nursing floor for medical stabilization using Subutex 2. Heroine dependence patient was counseled on cessation plan is for patient to follow-up with 118 following her medical stabilization 3. Substance abuse including heroin as well as meth 4. Tobacco dependence counseled on cessation, offered nicotine patch for tobacco cravings 5. DVT prophylaxis low risk did encourage early ambulation Code Visit Inpatient E&M: [id number] Subs Hosp L3
[2018-01-27] MEDS: Famotidine 20 MG Tablet PO ×2 (09:08→21:36)
[2018-01-27 14:39] LABS: Amphetamine Urine VISTA NEGATIVE (<1000 ng/mL); Barbiturate Urine VISTA NEGATIVE (< 200 ng/mL); Benzodiazepine Urine VISTA POSITIVE (< 200 ng/mL); Cocaine Urine VISTA NEGATIVE (< 300 ng/mL); Ecstacy Urine VISTA NEGATIVE (< 500 ng/mL); Methadone Urine VISTA NEGATIVE (< 300 ng/mL); PCP Urine VISTA NEGATIVE (< 25 ng/mL); THC Urine VISTA NEGATIVE (< 50 ng/mL); Vista UDS pH Range 7
[2018-01-27] MEDS: hydrOXYzine PAM 25 MG Capsule 50 MG PO (17:20)
[2018-01-27] MEDS: cloNIDine HCl 0.1 MG Tablet PO (21:36)
[2018-01-27] MEDS: Methocarbamol 750 MG Tablet PO (21:36)
[2018-01-27] MEDS: traZODone 50 MG Tablet PO (21:36)
[2018-01-28] VITALS (8 sets, daily range): BP systolic 103–108; BP diastolic 62–67; PULSE 68–77; RESP 16; TEMP 36.5–36.9; O2SAT 98–100
[2018-01-28] MEDS: Buprenorphine HCl 2 MG TAB.SUBL SL ×2 (05:54→17:19)
--- NOTE | 2018-01-28 08:04 | PN_ITS ---
Subjective: Patient seen appears less anxious she was compared to the previous day. Denies any abdominal no leg cramps. Objective: GENERAL: cooperative HEENT: Atraumatic; EYES; Anicteric, Normal Conjunctiva NECK; supple, normal thyroid, no distended JVD. RESPIRATORY: Diminished to auscultation bilaterally, CARDIOVASCULAR: Regular S1 S2, no audible murmurs GI: soft, non-tender, normoactive bowel sounds, : No Renal angle tenderness; EXTREMITIES: No edema, no clubbing, no cyanosis. MUSCULOSKELETAL: No Joint Tenderness; no muscle waisting NEURO: Awake; no lateralizing signs. SKIN: No Rash PSYCH; Normal affect Vitals/I&O's: Vital Signs Temp Pulse Resp BP Pulse Ox 98.4 F 68 16 107/67 98 01/28/18 05:50 01/28/18 05:50 01/28/18 05:50 01/28/18 05:50 01/28/18 05:53 Oxygen Delivery Method Room Air Weight: 57.6 kg Body Mass Index (BMI) 21.1 Intake and Output for Last 24 Hours 01/26/18 01/27/18 01/28/18 23:59 23:59 23:59 Intake Total 500 / 500 1100 / 1100 560 / 560 Output Total 500 / 500 Balance 500 / 500 600 / 600 560 / 560 Laboratory Results 01/27/18 14:00: Urine Opiates Screen POSITIVE H, Urine Methadone Screen NEGATIVE, Ur Barbiturates Screen NEGATIVE, Ur Phencyclidine Scrn NEGATIVE, Ur Amphetamines Screen NEGATIVE, U Methamphetamin-MDMA NEGATIVE, U Benzodiazepines Scrn POSITIVE H, Urine Cocaine Screen NEGATIVE, U Cannabinoids Screen NEGATIVE, Ur Drug Screen Comment Current Medications Acetaminophen (Tylenol) 500 mg PO Q4H PRN PRN PRN Reason: Temp > 100.4 F Al Hydroxide/Mg Hydroxide (Mylanta Ii) 30 ml PO Q6H PRN PRN PRN Reason: dyspesia Bisacodyl (Dulcolax) 10 mg RECTAL DAILY PRN PRN Reason: Constipation Buprenorphine HCl (Buprenorphine Hcl) 2 mg SL Q12H [facility]; Taper Stop: 01/29/18 17:29 Last Admin: 01/28/18 05:54 Dose: 2 mg Chlordiazepoxide (Librium) 25 mg PO Q6H PRN PRN PRN Reason: Moderate-Severe Anxiety Clonidine (Catapres) 0.1 mg PO Q2H PRN PRN PRN Reason: Hot/Cold Sweats or Anxiety Last Admin: 01/27/18 21:36 Dose: 0.1 mg Dicyclomine HCl (Bentyl) 20 mg PO Q6H PRN PRN PRN Reason: Abdomnial Discomfort Famotidine (Pepcid) 20 mg PO BID [facility] Last Admin: 01/27/18 21:36 Dose: 20 mg Hydroxyzine HCl (Vistaril Vial) 50 mg IM Q6H PRN PRN PRN Reason: Breakthrough Anxiety Hydroxyzine Pamoate (Vistaril Pamoate Capsule) 50 mg PO Q6H PRN PRN PRN Reason: Mild Anxiety Last Admin: 01/27/18 17:20 Dose: 50 mg Ibuprofen (Motrin) 600 mg PO Q8H PRN PRN PRN Reason: Mild-Moderate Pain (1-5/10) Loperamide HCl (Imodium) 2 - 4 mg PO UD PRN PRN Reason: LOOSE STOOLS Magnesium Hydroxide (Milk Of Magnesia) 30 ml PO DAILY PRN PRN PRN Reason: Constipation Methocarbamol (Methocarbamol) 750 mg PO Q6H PRN PRN PRN Reason: Muscle Aches Last Admin: 01/27/18 21:36 Dose: 750 mg Nicotine (Nicoderm Cq (Pbkc)) 21 mg TRANSDERM. DAILY [facility] Last Admin: 01/27/18 09:08 Dose: 21 mg Nutritional Formula (Lactose Free) (Ensure Enlive) 120 ml PO 4X/DAY [facility] Last Admin: 01/27/18 21:36 Dose: 120 ml Ondansetron HCl (Zofran Odt) 4 mg PO Q6H PRN PRN PRN Reason: NAUSEA Pramipexole Dihydrochloride (Mirapex) 0.25 mg PO Q12H PRN PRN PRN Reason: Restless Legs Senna (Senokot) 1 tablet PO QHS PRN PRN Reason: Constipation Sodium Chloride () 5 - 30 ml IV UD PRN PRN Reason: SALINE FLUSH Trazodone HCl (Desyrel) 50 mg PO QHS [facility] Last Admin: 01/27/18 21:36 Dose: 50 mg Medical Necessity - Tobacco Use Smoking Status: Current every day smoker Assessment/Plan All Active Problems Opiate withdrawal (Acute) Abscess (Resolved) Patient is a 32-year-old lady with history of polysubstance abuse presenting with acute opioid withdrawal 1. Acute opioid withdrawal patient has been admitted to regular nursing floor for medical stabilization using Subutex 2. Heroine dependence patient was counseled on cessation plan is for patient to follow-up with 118 following her medical stabilization 3. Substance abuse including heroin as well as meth 4. Tobacco dependence counseled on cessation, offered nicotine patch for tobacco cravings 5. DVT prophylaxis low risk did encourage early ambulation Code Visit Inpatient E&M: [id number] Subs Hosp L2
[2018-01-28] MEDS: Famotidine 20 MG Tablet PO ×2 (09:14→22:51)
[2018-01-28] MEDS: hydrOXYzine PAM 25 MG Capsule 50 MG PO ×2 (14:08→22:57)
[2018-01-28] MEDS: traZODone 50 MG Tablet PO (22:51)
[2018-01-28] MEDS: Methocarbamol 750 MG Tablet PO (22:57)
[2018-01-29 05:15] VITALS: BP 103/59; PULSE 67; RESP 16; TEMP 36.4; O2SAT 100
[2018-01-29] MEDS: Buprenorphine HCl 2 MG TAB.SUBL SL (05:32)
--- NOTE | 2018-01-29 08:00 | DCINST_ITS ---
You will use the following diet at home:: No restrictions Discharge Activity: May not drive while taking narcotic pain medications. Allergies/Adverse Reactions: Allergies No Known Allergies Allergy (Verified 10/01/16 15:41) Medications to take at Discharge NK 01/26/18 Primary Care Physician: Care Physician,No Primary [Primary Care Provider] - Test Results: Test results from this visit will be discussed in further detail at your follow- up appointment, if applicable. Proposed Discharge Date: 01/29/18
--- NOTE | 2018-01-29 08:02 | DS.PCM_ITS ---
Discharge Date and Diagnosis Date of Admission: 01/26/18 Date of Discharge: 01/29/18 - Primary Discharge Diagnosis Acute opioid withdrawal - Secondary Discharge Diagnosis Chronic Problems Tobacco dependence due to cigarettes (Chronic) Hx MRSA infection (Chronic) Methamphetamine abuse (Chronic) Heroin abuse (Chronic) Hospital Course and Treatment Operations: None Summary of Care Provided: Patient is a 32-year-old lady with history of polysubstance abuse presenting with acute opioid withdrawal 1. Acute opioid withdrawal patient has been admitted to regular nursing floor for medical stabilization using Subutex days. Follow-up appointments were set up by [facility] with 180 for patient to continue with her attempt to quit chronic opioid use 2. Heroine dependence patient was counseled on cessation plan is for patient to follow-up with 180 following her medical stabilization 3. Substance abuse including heroin as well as meth 4. Tobacco dependence counseled on cessation, offered nicotine patch for tobacco cravings 5. DVT prophylaxis low risk did encourage early ambulation Objective: GENERAL: cooperative HEENT: Atraumatic; EYES; Anicteric, Normal Conjunctiva NECK; supple, normal thyroid, no distended JVD. RESPIRATORY: Diminished to auscultation bilaterally, CARDIOVASCULAR: Regular S1 S2, no audible murmurs GI: soft, non-tender, normoactive bowel sounds, : No Renal angle tenderness; EXTREMITIES: No edema, no clubbing, no cyanosis. MUSCULOSKELETAL: No Joint Tenderness; no muscle waisting NEURO: Awake; no lateralizing signs. SKIN: No Rash PSYCH; Normal affect - Physical Exam Vital Signs Temp Pulse Resp BP Pulse Ox 97.6 F L 67 16 103/59 L 100 01/29/18 05:15 01/29/18 05:15 01/29/18 05:15 01/29/18 05:15 01/29/18 05:15 Oxygen Delivery Method Room Air Weight: 57.6 kg Body Mass Index (BMI) 21.1 Intake and Output for Last 24 Hours 01/27/18 01/28/18 01/29/18 23:59 23:59 23:59 Intake Total 1100 / 1100 1280 / 1280 620 / 620 Output Total 500 / 500 Balance 600 / 600 1280 / 1280 620 / 620 Discharge Diet: No Restrictions Discharge Activity: May not drive while taking narcotic pain medications. Home Medications: Medications to take at Discharge NK 01/26/18 Primary Care Physician: Care Physician,No Primary [Primary Care Provider] - Disposition: Home Minutes spent on discharge:: 32 Patient Condition:: Stable Medical Necessity - Tobacco Use Smoking Status: Current every day smoker Meaningful Use Info Meaningful Use Diagnoses (Choose all that apply): None applicable Code Visit Inpatient E&M: 47955 Disch Hosp
[2018-01-29 10:23] VITALS: BP 105/77; PULSE 85; RESP 16; TEMP 36.7
== END 2018-01-29 10:26 | disposition home or self-care (01) | DRG 773 ==
PROVIDERS: Admitting Provider Internal Medicine; Referring Provider Internal Medicine; Visit Provider Internal Medicine
DX: F11.23 Opioid dependence with withdrawal (principal); F15.10 Other stimulant abuse, uncomplicated; Z86.14 Personal history of Methicillin resistant Staphylococcus aureus infection; Z23 Encounter for immunization; F17.210 Nicotine dependence, cigarettes, uncomplicated
CPT/HCPCS: 80053; 80307; 80320; 84703; 85025; 85610; 97802; 99218; 99406; 90686; G0378; G0379; G0480

== ENCOUNTER 2019-10-17 14:56 | Observation (INO) | payer MEDICAID, SELFPAY ==
[2019-10-17 14:57] VITALS: BP 128/84; PULSE 81; RESP 15; TEMP 36.9; O2SAT 97; BMI 26.6
--- NOTE | 2019-10-17 15:36 | ED.DCSUM_ITS ---
- ER Visit Summary Date of Service: 10/17/19 Chief Complaint: Heroin detox History of Present Illness: The patient is a 34 F who presents requesting heroin detox. Patient states her last use was yesterday. Patient states she normally snorts her heroin. Patient states her last detox was approximately a year to a year and a half ago. Patient states she normally uses approximately 1 g/day. Patient states she has been using for the last 3 months. Patient denies any fevers or chills. Patient denies any nausea or vomiting. Patient denies any diarrhea. Patient denies any seizures or tremors. Patient denies any suicidal homicidal ideations. Physical Examination: Vital signs are stable. Patient is afebrile. Patient is in no acute distress. Oral mucosa is pink and moist. Neck is supple. Trachea is midline. There is no JVD noted. Heart was regular rate and rhythm. Lungs are clear and equal bilaterally. Abdomen is soft. Bowel sounds are normal. There is no tenderness. There is no rebound or guarding noted. Skin is warm dry. Cranial nerves II through XII are intact. There are no focal motor or sensory deficits noted. Extremities are intact. There is no calf tenderness or edema. Test Results: CBC and comprehensive metabolic profile were within normal limits. Urinalysis does not show any evidence of urinary tract infection. Urine tox screen was positive for methamphetamines. Serum alcohol level was normal. Emergency Department Course and Treatment: Case was discussed with the hospitalist. Patient will be admitted for detox. Patient understood and was agreeable with the plan. All questions were answered. Disposition: Admit to hospital Impression: Narcotic withdrawal This note was generated with [employer] dictation software. It may contain incorrect words, spelling, and punctuation that were not noted in review of the chart prior to signing ED Disposition - Plan for ED Patient: Disposition: Acute Care Hospital [facility] Diagnosis: Opiate withdrawal, Heroin abuse
--- NOTE | 2019-10-17 15:48 | HP.PCM_ITS ---
Problem List (1) Opiate withdrawal Status: Acute (2) Anxiety and depression Status: Chronic (3) Heroin abuse Status: Chronic (4) Tobacco dependence due to cigarettes Status: Chronic History of Present Illness Date of Admission: 10/17/19 Chief Complaint: Acute narcotic withdrawal The patient is a 34 y/o F w/ PMHx: Narcotic abuse (1 gm heroin snorted) with prior Hx IVDA (no IV 1.5 years), Former methamphetamine usage, Tobacco use, Anxiety and Depression who presents to the [facility] on 10/17/19 w/ noted opiate withdrawal onset starting 10/17/19 am following last dose, 1/2 gm snorted 10/16/19 ~ 8:30 am with abdominal pain/cramping, generalized body aches and pains, rhinorrhea, piloerection, fatigue, restless leg, sweating, yawning. Patient in terested in attaining clean status. She notes that she had been clean since her last hospitalization for acute withdrawal for 1.5 years but starting using again over the last 3 months secondary to hanging out with her old friends who use. Work-up in the ED included T 98.4, heart rate 81, BP 120/84, respiratory rate 15, 97% room air, pending CBC, CMP, lipase, serum , urinalysis, UDS, blood alcohol level. Past Medical History Past Medical History (Chronic Problems): Chronic Problems Tobacco dependence due to cigarettes (Chronic) Hx MRSA infection (Chronic) Anxiety and depression (Chronic) Methamphetamine abuse (Chronic) Heroin abuse (Chronic) Allergies No Known Allergies Allergy (Verified 10/17/19 14:57) Home Medications: Ambulatory Orders Medication Instructions Recorded NK 01/26/18 Surgical History: - - I&D of a MRSA abscess in the antecubital fossa in September of 2016. 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 Smoking Status: Current every day smoker - Patient notes 1/2 pack/day cigarette tobacco usage. Tobacco Use: Cigarettes Alcohol: None Drugs: Heroin - Currently snorting, previously IVDA. Average current use x 3 months 1 gm daily., Marijuana - *Family History Maternal History Items: - - Patient denies any market maternal family history including heart disease, diabetes or cancer. Paternal History Items: Cancer - Father secondary to lymphoma. Review of Systems Constitutional: Reports: Malaise, Weakness, Fatigue. Denies: Chills, Fever, Weight Change HEENT: Reports: Head Aches, Nasal Congestion, Sinus Congestion, Sinus Drainage Cardiovascular: Denies: Chest Pain, Palpitations Respiratory: Denies: Cough, Shortness of breath at rest, Sputum production Gastrointestinal: Reports: Abdominal Pain, Diarrhea, Nausea. Denies: Vomiting Genitourinary: Denies: Dysuria Musculoskeletal: Reports: Back Pain, Joint Pain, Muscle pain. Denies: Joint Tenderness Skin: Denies: Rash, Wounds Neurological: Denies: Numbness, Tingling, Focal weakness Psychiatric: Reports: Anxiety, Depression. Denies: Homicidal Ideations, Suicidal Ideations Hematologic/ Lymphatic: Denies: Easy Bruising, Easy Bleeding VTE Information - Inpt Only VTE Present on Admission: No VTE Mechan Device Prophylaxis: None VTE Pharm Prophylaxis ordered?: No Reason prophylaxis not ordered:: Treatment Not Indicated Patient Problems: Active and Suspected Problems Opiate withdrawal (Acute) Subjective: Seated upright in the ED bed, fatigued appearance, mildly anxious, notable restless legs. Objective: Physical Examination: General: awake, alert, oriented x 3 and cooperative, seated upright in the ED bed, anxious, evident restlessness. Skin: normal color, turgor, no icterus, cyanosis. HEENT: AT/NC, EOMI, PERRLA, dry MM, rhinorrhea evident, no carotid bruits or JVD noted. Lungs: CTA bilaterally, moderate effort, moderate decrease BL bases, no rales, ronchi or wheezing. Heart: Regular rate and rhythm; no gallop, rub audible. Abdomen: soft, mild generalized discomfort with palpation without rebound or guarding, ND, hyperactive BS, no HSM. Extremities: no cyanosis, clubbing, or edema. Neurological: patient awake, alert, oriented x 3; cognitive function intact; pupils equally reactive to light and accomodation; cranial nerves II-XII grossly normal, moving all 4 extremities, no focal deficits, strength moderately globally decreased secondary to acute presentation. Psychiatric: affect appears fatigued, restless, anxious, no acute evidence of depressive feelings. - Physical Exam Vitals/I&O's: Vital Signs Temp Pulse Resp BP Pulse Ox 98.4 F 81 15 128/84 H 97 10/17/19 14:57 10/17/19 14:57 07/27/20 14:57 10/17/19 14:57 10/17/19 14:57 Oxygen Delivery Method Room Air Weight: 160 lb 7.944 oz Body Mass Index (BMI) 26.6 Assessment/Plan All Active Problems Opiate withdrawal (Acute) Abscess (Resolved) The patient is a 34 y/o F w/ PMHx: Narcotic abuse (1 gm heroin snorted) with prior Hx IVDA (no IV 1.5 years), Former methamphetamine usage, Tobacco use, Anxiety and Depression who presents to the [facility] on 10/17/19 w/ noted opiate withdrawal onset starting 10/17/19 am. 1. Acute Opiate Withdrawal: Will admit to [facility], pending ED initiated routine labs including CBC, CMP, urine for drug screen, urinalysis, serum lipase, , will initiate and continue on tapering course of Subutex, as needed Librium, Sinemet, Catapres, Bentyl, Vistaril, IV fluids, IV antiemetics, Tylenol as needed for pain. Will consult CM/SW for assist with transition to next level of rehabilitation care. 2. Polysubstance Abuse, IVDA Hx: Patient with 08/21/17 negative hepatitis panel and NR HIV. No IVDA since this presentation, thus will defer repeat. Encouraged PCP establishment and follow-up. 3. Tobacco Abuse: Encouraged cessation, inpatient consultation per RT, NR if desired. 4. Anxiety and Depression: Likely contributing, will benefit from counseling and possibly medication, defer to 180 at follow-up. 5. DVT prophylaxis: Low risk, ambulation encouraged. Inpatient E&M: 48968 Init Hosp L3
[2019-10-17 15:54] VITALS: BP 126/70; PULSE 73; PULSE 76; RESP 14; TEMP 36.7; O2SAT 96
--- NOTE | 2019-10-17 16:17 | CM.ED ---
Social Work Consult: Substance Abuse Informant: Self Referral Met with patient in room. Introduced self and social work case manager role. Patient lives with mother and two children (6 and 7 years old). Patient mother, Kathie currently has patient children. Patient states to have been clean for 1 1/2 years and to have relapsed on Heroine 3 months ago. Patient does not identify any triggers for relapse outside of hanging with those people. Patient reports Depression and Anxiety. Patient denies any history of suicidal thoughts/plans/intents. Patient denies any other substance abuse other then Heroine. Patient reports to have a job and positive supports that do not use. Patient states goal to complete [facility] program and follow up with outpatient treatment supports. Patient seeking medical management of withdrawal symptoms. This social work case manager briefly went over [facility] contract. Nursing staff to have patient sign contract. Patient states no concerns on returning to community. Telephone call to Jennifer. eBlla Wylie to come and see patient tomorrow. Edwar GIORDANO, UMA
[2019-10-17 17:39] VITALS: BP 143/82; PULSE 77; RESP 16; TEMP 36.6; O2SAT 97
[2019-10-17 17:43] VITALS: BMI 26.6
[2019-10-17 17:46] VITALS: BMI 26.6
[2019-10-17] MEDS: Lactated Ringers 1,000 ML 125 ML IV (17:57)
[2019-10-17] MEDS: hydrOXYzine PAM 25 MG Capsule 50 MG PO (17:57)
[2019-10-17 18:09] LABS: Bacteria 0 SEEN /hpf (None Seen); Mucous, Urine 0 SEEN /hpf (<or=2+); Red Blood Cells-Urine 0 SEEN /hpf (0-5); Squamous Epithelial Cells - UA 0 SEEN /hpf (5-10); White Blood Cells 0 SEEN /hpf (0-5)
[2019-10-17 18:20] LABS: Color, Urine Yellow (Yellow); Glucose, Dipstick Normal (Normal); Ketone-Dipstick Negative (Negative); Leukocyte Esterase-Dipstick Negative /ul (Negative); Nitrite-Dipstick Negative (Negative); Occult Blood-Urine Negative /ul (Negative); Protein-Dipstick Negative (Negative); Urine Bilirubin Dipstick Negative (Negative); Urine Clarity Clear (Clear); Urine Urobilinogen Normal (Normal)
[2019-10-17 18:35] LABS: Amphetamine Urine VISTA NEGATIVE (<1000 ng/mL); Barbiturate Urine VISTA NEGATIVE (< 200 ng/mL); Benzodiazepine Urine VISTA NEGATIVE (< 200 ng/mL); Cocaine Urine VISTA NEGATIVE (< 300 ng/mL); Ecstacy Urine VISTA POSITIVE (< 500 ng/mL); Methadone Urine VISTA NEGATIVE (< 300 ng/mL); PCP Urine VISTA NEGATIVE (< 25 ng/mL); THC Urine VISTA NEGATIVE (< 50 ng/mL); Vista UDS pH Range 5
--- NOTE | 2019-10-17 20:14 | NURSING ---
lab aware of needed blood draw so pt can start her meds, er unable to get but has had ivf now
[2019-10-17 20:41] LABS: Absolute Lymphocyte Count 2.41 X10^3/uL (0.83-4.51); Absolute Neutrophil Count 3.5 X10^3/uL (2.0-7.7); Basophil# 0.05 X10^3/uL; Basophil% 0.7 % (0-1); Eosinophil# 0.43 X10^3/uL; Eosinophils% 6.1 % (0-5); Hematocrit 41.2 % (37-47); Hemoglobin 13.6 g/dL (12.0-15.0); Lymphocyte # 2.41 X10^3/ul (4.0); Lymphocyte % 34.1 % (19-41); Mean Corpuscular Hgb 28.5 pg (27.0-32.0); Mean Corpuscular Volume 86.4 fL (81-99); Mean Platelet Vol. 10.8 fl (6.2-12.0); Monocyte# 0.65 X10^3/uL; Monocyte% 9.2 % (0-10); NRBC Flagged by Analyzer 0 % (0-5); Neutrophil # 3.51 X10^3/uL (2.7-7.7); Neutrophil % 49.6 % (47-70); Platelet Count 259 K/mm3 (150-450); RBC Distribution Width CV 12.2 % (11.6-14.6); RBC Distribution Width SD 38.6 fl (35.1-43.9); Red Blood Count 4.77 M/mm3 (4.2-5.4); White Blood Count 7.1 K/mm3 (4.4-11.0)
[2019-10-17 20:54] LABS: Internal QC Validated? YES +Cl - CLEAR BKGD; Pregnancy, Serum, hCG Quali. NEGATIVE Negative
[2019-10-17 21:00] LABS: AST(SGOT) 6 U/L (15-37); Alanine Aminotransfer ALT/SGPT 11 U/L (13-56); Albumin, Serum 3.4 g/dL (3.2-5.0); Alkaline Phosphatase 57 U/L (45-117); Anion Gap 3 (5-15); BUN 11 mg/dL (7-18); BUN/Creat Ratio 16.3 RATIO (10-20); Calcium,Total 8.3 mg/dL (8.5-10.1); Chloride 108 mmol/L (98-107); Creatinine, Serum 0.68 mg/dL (0.55-1.02); EST Glomerular Filtration Rate 106 mL/min (>60); Est Glom Filt Rate - Afr Amer 128 mL/min (>60); Globulin 3.3 g/dL (2.2-4.2); Glucose 99 mg/dL (74-106); Lipase 78 U/L (73-393); Potassium 3.5 mmol/L (3.5-5.1); Protein, Total 6.7 g/dL (6.4-8.2); Sodium Level 142 mmol/L (136-145)
[2019-10-17 21:11] LABS: Alcohol, Blood (Medical)-Serum < 3.0 mg/dL
[2019-10-17 21:14] VITALS: BP 99/61; PULSE 74; RESP 16; TEMP 36.8; O2SAT 97
[2019-10-17] MEDS: Buprenorphine HCl 2 MG TAB.SUBL SL (21:20)
[2019-10-18] VITALS (7 sets, daily range): BP systolic 107–157; BP diastolic 65–79; PULSE 71–93; RESP 16–18; TEMP 36.5–37.1; O2SAT 95–99
[2019-10-18] MEDS: Methocarbamol 750 MG Tablet 1500 MG PO (01:20)
[2019-10-18] MEDS: Gabapentin 300 MG Capsule PO ×2 (01:20→16:46)
[2019-10-18] MEDS: cloNIDine HCl 0.1 MG Tablet PO ×2 (01:20→16:46)
[2019-10-18] MEDS: Buprenorphine HCl 2 MG TAB.SUBL SL ×3 (04:55→20:11)
--- NOTE | 2019-10-18 14:22 | ADDICTION ---
This senior technical writer met with patient in her room to complete ASAM assessment, discharge planning, DUDIT, GRIFFIN and MSE. Patient was in bed upon this senior technical writer's arrival and did not sit up during visit. She presented with depressed mood and congruent affect. She participated appropriately but was withdrawn. She reports that she is not interested in residential treatment at this time and plans to return to her home. She is scheduled with an initial appointment with Renata at [facility] at 12:45pm on 10/21/2019. She reported that she will speak with a counselor about residential at this time. She signed GRIFFIN for [facility]. She meets ASAM criteria for 4.0 Medically Managed Intensive INpatient treatment. Assessments to be faxed to [facility].
[2019-10-18] MEDS: hydrOXYzine PAM 25 MG Capsule 50 MG PO (16:46)
--- NOTE | 2019-10-18 18:30 | PCM.PROGNOTE ---
Patient Problems: Active and Suspected Problems Opiate withdrawal (Acute) Subjective: Patient was seen and examined today, she is resting quietly at the time my examination and does not complain of any muscle pain, tremor, or nausea. - Physical Exam Vitals/I&O's: Vital Signs Temp Pulse Resp BP Pulse Ox 97.9 F 85 18 116/69 99 10/18/19 17:02 10/18/19 17:02 10/18/19 17:02 10/18/19 17:02 10/18/19 17:02 Oxygen Delivery Method Room Air Weight: 72.484 kg Body Mass Index (BMI) 26.6 Intake and Output for Last 24 Hours 10/16/19 10/17/19 10/18/19 23:59 23:59 23:59 Intake Total 1799 / 1799 Balance 1799 / 1799 General: Alert, Oriented x3, Cooperative, No apparent distress, Well developed, Well nourished HEENT: Atraumatic, PERRLA, EOMI, Normocephalic Oral: Moist Mucosa Neck: Supple, No JVD, Trachea Midline, Thyroid Normal Size and Texture Lungs: Clear to auscultation, Normal air movement, No rhonchi, No wheeze, No rales Cardiovascular: Regular rate, Regular Rhythm, Normal S1, Normal S2, No murmurs, PMI Normal, No rub noted Abdomen: Bowel Sounds Present, Soft, Non Tender, Non-Distended Extremities: No edema, Capillary Refill Less than 3 Seconds Skin: No rashes, No breakdown Neurological: Cranial nerves II-XII grossly intact, Neuro grossly intact, Sensory exam intact to light touch and pain, Coordination normal Psych/Mental Status: Normal Affect, Appropriate, Alert and oriented to time, place, person, mood and affect Laboratory Results 10/17/19 18:00: Urine Opiates Screen NEGATIVE, Urine Methadone Screen NEGATIVE, Ur Barbiturates Screen NEGATIVE, Ur Phencyclidine Scrn NEGATIVE, Ur Amphetamines Screen NEGATIVE, U Methamphetamin-MDMA POSITIVE H, U Benzodiazepines Scrn NEGATIVE, Urine Cocaine Screen NEGATIVE, U Cannabinoids Screen NEGATIVE 10/17/19 20:25: WBC 7.1, RBC 4.77, Hgb 13.6, Hct 41.2, MCV 86.4, MCH 28.5, MCHC 33.0, RDW Std Deviation 38.6, RDW Coeff of Nilda 12.2, Plt Count 259, MPV 10.8, Immature Gran % (Auto) 0.300, Neut % (Auto) 49.6, Lymph % (Auto) 34.1, Benson % (Auto) 9.2, Eos % (Auto) 6.1 H, Baso % (Auto) 0.7, Absolute Neuts (auto) 3.5, Absolute Lymphs (auto) 2.41, Nucleated RBC % 0 10/17/19 20:25: Sodium 142, Potassium 3.5, Chloride 108 H, Carbon Dioxide 31.0, Anion Gap 3 L, BUN 11, Creatinine 0.68, Estim Creat Clear Calc 104.90, Est GFR (MDRD) Af Amer 128, Est GFR (MDRD) Non-Af 106, BUN/Creatinine Ratio 16.3, Glucose 99, Calcium 8.3 L, Total Bilirubin 0.20, AST 6 L, ALT 11 L, Alkaline Phosphatase 57, Total Protein 6.7, Albumin 3.4, Globulin 3.3, Albumin/Globulin Ratio 1.0, Lipase 78 10/17/19 20:25: Ethyl Alcohol < 3.0 10/17/19 20:25: Serum , Qual NEGATIVE Current Medications Acetaminophen (Tylenol) 500 mg PO Q4H PRN PRN PRN Reason: Temp > 100.4 F Al Hydroxide/Mg Hydroxide (Mylanta Ii) 30 ml PO Q6H PRN PRN PRN Reason: dyspesia Albuterol Sulfate (Ventolin Aerosols) 2.5 mg INHALATION Q2H PRN PRN PRN Reason: Shortness of Breath/Wheezing Bisacodyl (Dulcolax) 10 mg RECTAL DAILY PRN PRN Reason: Constipation Buprenorphine HCl (Buprenorphine Hcl) 4 mg SL Q8H [facility]; Taper Stop: 10/20/19 19:59 Last Admin: 10/18/19 12:24 Dose: 4 mg Documented by: Clonidine (Catapres) 0.1 mg PO Q8H PRN PRN PRN Reason: RESTLESSNESS Last Admin: 10/18/19 16:46 Dose: 0.1 mg Documented by: Dextrose (D50w Syringe) 0 gm IV X1 PRN; Protocol PRN Reason: Hypoglycemia Dicyclomine HCl (Bentyl) 20 mg PO Q6H PRN PRN PRN Reason: Abdominal Discomfort Gabapentin (Neurontin) 300 mg PO Q8H PRN PRN PRN Reason: moderate to severe anxiety Last Admin: 10/18/19 16:46 Dose: 300 mg Documented by: Glucagon () 1 mg IM .X1 PRN PRN Reason: Hypoglycemia Guaifenesin (Robitussin) 20 ml PO Q4H PRN PRN PRN Reason: COUGH Hydroxyzine Pamoate (Vistaril Pamoate Capsule) 50 mg PO Q6H PRN PRN PRN Reason: mild anxiety Last Admin: 10/18/19 16:46 Dose: 50 mg Documented by: Ibuprofen (Motrin) 600 mg PO Q8H PRN PRN PRN Reason: Pain Score 1-10/10 Loperamide HCl (Imodium) 2 mg PO Q4H PRN PRN PRN Reason: LOOSE STOOLS Methocarbamol (Methocarbamol) 1,500 mg PO Q6H PRN PRN PRN Reason: MUSCLE SPASM Last Admin: 10/18/19 01:20 Dose: 1,500 mg Documented by: Nicotine (Nicoderm Cq (Pbkc)) 14 mg TRANSDERM. DAILY KAREEM Last Admin: 10/18/19 08:51 Dose: 14 mg Documented by: Ondansetron HCl (Zofran) 8 mg PO Q8H PRN PRN PRN Reason: NAUSEA Senna (Senokot) 2 tablet PO QHS PRN PRN Reason: Constipation Sodium Chloride () 10 - 40 ml IV UD PRN PRN Reason: SALINE FLUSH Throat Lozenges (Cepacol Sore Throat Lozenge) 1 lozenge MUCOUS MEM Q2H PRN PRN PRN Reason: SORE THROAT Trazodone HCl (Desyrel) 100 mg PO QHS PRN PRN PRN Reason: INSOMNIA Medical Necessity - Tobacco Use Smoking Status: Current every day smoker Tobacco Use: Cigarettes Assessment/Plan All Active Problems Opiate withdrawal (Acute) Abscess (Resolved) #1 acute opiate withdrawal-patient will continue on present medications, she will need follow-up as an outpatient #2 polysubstance abuse-patient's tox screen was positive for methamphetamine #3 heroin addiction Inpatient E&M: 42338 Subs Hosp L2
[2019-10-19 03:13] VITALS: BP 110/71; PULSE 75; RESP 16; TEMP 36.9; O2SAT 97
[2019-10-19] MEDS: Buprenorphine HCl 2 MG TAB.SUBL SL ×3 (03:15→20:10)
[2019-10-19 08:25] VITALS: BP 128/76; PULSE 56; RESP 16; TEMP 37.2; O2SAT 97
[2019-10-19] MEDS: Gabapentin 300 MG Capsule PO (08:32)
[2019-10-19] MEDS: hydrOXYzine PAM 25 MG Capsule 50 MG PO (08:32)
--- NOTE | 2019-10-19 10:10 | ADDICTION ---
This comic writer met with patient in her room to finalize discharge planning in preparation for discharge. She was alert and oriented and presented with euthymic mood and broad affect. She confirmed that she has an appointment at [facility] on 10/21/2019 at 12:45pm and plans to present for this appointment. She reports that she plans to discharge to her mother's residence which she reports is safe and drug free. This comic writer confirmed that patient is not interested in residential. Patient stated that she may engage in IOP following her appointment with [facility]. This comic writer confirmed that patient has contact information for this comic writer, [facility], the Treatment Navigator, The Crisis Line, the Peer Support Hotline.
[2019-10-19 13:41] VITALS: BP 110/75; PULSE 70; RESP 16; TEMP 36.4; O2SAT 99
--- NOTE | 2019-10-19 18:12 | PCM.PROGNOTE ---
Patient Problems: Active and Suspected Problems Opiate withdrawal (Acute) Subjective: Patient was seen and examined today, she does not complain of any nervousness or tremor today. She has no complaints of any muscle pain. Objective: General: Alert, Oriented x3, Cooperative, No apparent distress, Well developed, Well nourished HEENT: Atraumatic, PERRLA, EOMI, Normocephalic Oral: Moist Mucosa Neck: Supple, No JVD, Trachea Midline, Thyroid Normal Size and Texture Lungs: Clear to auscultation, Normal air movement, No rhonchi, No wheeze, No rales Cardiovascular: Regular rate, Regular Rhythm, Normal S1, Normal S2, No murmurs, PMI Normal, No rub noted Abdomen: Bowel Sounds Present, Soft, Non Tender, Non-Distended Extremities: No edema, Capillary Refill Less than 3 Seconds Skin: No rashes, No breakdown Neurological: Cranial nerves II-XII grossly intact, Neuro grossly intact, Sensory exam intact to light touch and pain, Coordination normal Psych/Mental Status: Normal Affect, Appropriate, Alert and oriented to time, place, person, mood and affect - Physical Exam Vitals/I&O's: Vital Signs Temp Pulse Resp BP Pulse Ox 97.5 F L 70 16 110/75 99 10/19/19 13:41 10/19/19 13:41 10/19/19 13:41 10/19/19 13:41 10/19/19 13:41 Oxygen Delivery Method Room Air Weight: 72.484 kg Body Mass Index (BMI) 26.6 Intake and Output for Last 24 Hours 10/17/19 10/18/19 10/19/19 23:59 23:59 23:59 Intake Total 2160 / 2460 1400 / 1400 Balance 2160 / 2460 1400 / 1400 Current Medications Acetaminophen (Tylenol) 500 mg PO Q4H PRN PRN PRN Reason: Temp > 100.4 F Al Hydroxide/Mg Hydroxide (Mylanta Ii) 30 ml PO Q6H PRN PRN PRN Reason: dyspesia Albuterol Sulfate (Ventolin Aerosols) 2.5 mg INHALATION Q2H PRN PRN PRN Reason: Shortness of Breath/Wheezing Bisacodyl (Dulcolax) 10 mg RECTAL DAILY PRN PRN Reason: Constipation Buprenorphine HCl (Buprenorphine Hcl) 2 mg SL Q8H [facility]; Taper Stop: 10/20/19 19:59 Last Admin: 10/19/19 11:15 Dose: 2 mg Documented by: Clonidine (Catapres) 0.1 mg PO Q8H PRN PRN PRN Reason: RESTLESSNESS Last Admin: 10/18/19 16:46 Dose: 0.1 mg Documented by: Dextrose (D50w Syringe) 0 gm IV X1 PRN; Protocol PRN Reason: Hypoglycemia Dicyclomine HCl (Bentyl) 20 mg PO Q6H PRN PRN PRN Reason: Abdominal Discomfort Gabapentin (Neurontin) 300 mg PO Q8H PRN PRN PRN Reason: moderate to severe anxiety Last Admin: 10/19/19 08:32 Dose: 300 mg Documented by: Glucagon () 1 mg IM .X1 PRN PRN Reason: Hypoglycemia Guaifenesin (Robitussin) 20 ml PO Q4H PRN PRN PRN Reason: COUGH Hydroxyzine Pamoate (Vistaril Pamoate Capsule) 50 mg PO Q6H PRN PRN PRN Reason: mild anxiety Last Admin: 10/19/19 08:32 Dose: 50 mg Documented by: Ibuprofen (Motrin) 600 mg PO Q8H PRN PRN PRN Reason: Pain Score 1-10/10 Loperamide HCl (Imodium) 2 mg PO Q4H PRN PRN PRN Reason: LOOSE STOOLS Methocarbamol (Methocarbamol) 1,500 mg PO Q6H PRN PRN PRN Reason: MUSCLE SPASM Last Admin: 10/18/19 01:20 Dose: 1,500 mg Documented by: Nicotine (Nicoderm Cq (Pbkc)) 14 mg TRANSDERM. DAILY KAREEM Last Admin: 10/19/19 08:34 Dose: 14 mg Documented by: Ondansetron HCl (Zofran) 8 mg PO Q8H PRN PRN PRN Reason: NAUSEA Senna (Senokot) 2 tablet PO QHS PRN PRN Reason: Constipation Sodium Chloride () 10 - 40 ml IV UD PRN PRN Reason: SALINE FLUSH Throat Lozenges (Cepacol Sore Throat Lozenge) 1 lozenge MUCOUS MEM Q2H PRN PRN PRN Reason: SORE THROAT Trazodone HCl (Desyrel) 100 mg PO QHS PRN PRN PRN Reason: INSOMNIA Medical Necessity - Tobacco Use Smoking Status: Current every day smoker Tobacco Use: Cigarettes Assessment/Plan All Active Problems Opiate withdrawal (Acute) Abscess (Resolved) #1 acute opiate withdrawal-patient will continue on present medications, she will need follow-up as an outpatient, if the patient remains stable, she will be discharged on Thursday to follow-up with 180. #2 polysubstance abuse-patient's tox screen was positive for methamphetamine #3 heroin addiction Inpatient E&M: 48008 Subs Hosp L2
[2019-10-19 20:05] VITALS: BP 111/75; PULSE 66; RESP 16; TEMP 36.6; O2SAT 99
[2019-10-20 05:17] VITALS: BP 113/67; PULSE 61; RESP 16; TEMP 36.6; O2SAT 96
[2019-10-20 08:49] VITALS: BP 115/61; PULSE 77; RESP 18; TEMP 36.4; O2SAT 97
[2019-10-20] MEDS: Buprenorphine HCl 2 MG TAB.SUBL SL (08:55)
--- NOTE | 2019-10-20 12:06 | DCINST_ITS ---
- Discharge Diagnoses Current Active Problems: Current Active and Chronic Problems Anxiety and depression (Chronic) Heroin abuse (Chronic) Opiate withdrawal (Acute) You will use the following diet at home:: No restrictions Your food should be the consistency of: Regular Your liquids should be the consistency of: Regular/Thin Discharge Activity: Return to Normal Activity Weight Bearing Status: Full weight bearing Additional Instructions: follow up with 180 as directed Allergies/Adverse Reactions: Allergies No Known Allergies Allergy (Verified 10/17/19 14:57) Medications to take at Discharge NK 01/26/18 Primary Care Physician: Care Physician,No Primary [Primary Care Provider] - Test Results: Test results from this visit will be discussed in further detail at your follow- up appointment, if applicable.
[2019-10-20 12:15] VITALS: BP 137/82; PULSE 80; RESP 18; TEMP 36.4; O2SAT 100
--- NOTE | 2019-10-21 18:15 | PCM.DC.SUM ---
Discharge Date and Diagnosis Date of Admission: 10/17/19 Date of Discharge: 10/20/19 - Primary Discharge Diagnosis Acute Problems: #1 acute opiate withdrawal #2 polysubstance abuse #3 heroin addiction - Secondary Discharge Diagnosis Chronic Problems: Chronic Problems Tobacco dependence due to cigarettes (Chronic) Hx MRSA infection (Chronic) Anxiety and depression (Chronic) Methamphetamine abuse (Chronic) Heroin abuse (Chronic) Hospital Course and Treatment Operations: None Procedures: None Summary of Care Provided: The patient is a 34 year old F emergency room at [facility] requesting heroin detox. Patient was admitted to [place] [address], order set utilizing template for acute heroin withdrawal was utilized, patient had no major difficulties during her hospital stay, she talked with 180 and arrange for follow-up as an outpatient on 10/20/2019. On 10/20/2019, patient was seen and examined: On examination she appeared in good health and spirits, she does not appear to be in any distress. Vital signs as documented. Skin warm and dry and without overt rashes. Neck without JVD, thyroid appears normal, trachea is midline, neck is supple. Lungs clear, normal air movement was noted. Heart exam notable for regular rhythm, normal sounds and absence of murmurs, rubs or gallops. Abdomen unremarkable and without evidence of organomegaly, masses, or abdominal aortic enlargement, bowel sounds are present in all 4 quadrants, no abdominal tenderness was noted. Extremities nonedematous, no cyanosis was noted, no clubbing was noted. Neuro: Cranial nerves II through XII are grossly intact, no focal motor deficits were noted, sensation to light touch and pinprick is intact, motor exam 5/5 throughout. Psych: Patient is alert and oriented x3, she does not appear anxious or depressed, she does not appear agitated. Patient was discharged in stable condition on 10/20/2019. - Physical Exam Vitals/I&O's: Vital Signs Temp Pulse Resp BP Pulse Ox 97.6 F L 80 18 137/82 H 100 10/20/19 12:15 10/20/19 12:15 10/20/19 12:15 10/20/19 12:15 10/20/19 12:15 Oxygen Delivery Method Room Air Weight: 72.484 kg Body Mass Index (BMI) 26.6 Intake and Output for Last 24 Hours 10/19/19 10/20/19 10/21/19 23:59 23:59 23:59 Intake Total 1600 / 1600 Balance 1600 / 1600 Discharge Activity: Return to Normal Activity Weight Bearing Status: Full weight bearing Home Medications: Medications to take at Discharge NK 01/26/18 Primary Care Physician: Care Physician,No Primary [Primary Care Provider] - Disposition: Home Minutes spent on discharge:: 31 Patient Condition:: Stable Medical Necessity - Tobacco Use Smoking Status: Current every day smoker Tobacco Use: Cigarettes Meaningful Use Info Meaningful Use Diagnoses (Choose all that apply): None applicable Inpatient E&M: 14322 Disch Hosp
== END 2019-10-20 12:22 | disposition home or self-care (01) ==
LOC: ED 15:48 → MS3 10-18 06:31
PROVIDERS: Admitting Provider Family Medicine; Emergency Provider Emergency Medicine; Visit Provider Internal Medicine
DX: F11.23 Opioid dependence with withdrawal (principal); F17.210 Nicotine dependence, cigarettes, uncomplicated; Z86.14 Personal history of Methicillin resistant Staphylococcus aureus infection; F15.10 Other stimulant abuse, uncomplicated; F41.9 Anxiety disorder, unspecified; F32.9 Major depressive disorder, single episode, unspecified
CPT/HCPCS: 36415; 80053; 80307; 80320; 81001; 83690; 84703; 85025; 99283; 99406; H0012; J7120; G0480

== ENCOUNTER → 2020-04-10 10:35 | Outpatient (CLI) | payer MEDICAID, SELFPAY ==
[2020-04-10 11:41] LABS: Internal QC Validated? YES +Cl - CLEAR BKGD; Pregnancy, Serum, hCG Quali. NEGATIVE Negative
[2020-04-10 11:53] LABS: ALB/GLOB Ratio 1.1 RATIO (0.9-2.4); AST(SGOT) 10 U/L (15-37); Alanine Aminotransfer ALT/SGPT 11 U/L (13-56); Albumin, Serum 3.7 g/dL (3.2-5.0); Alkaline Phosphatase 56 U/L (45-117); Anion Gap 5 (5-15); BUN 9 mg/dL (7-18); BUN/Creat Ratio 11.7 RATIO (10-20); Calcium,Total 8.6 mg/dL (8.5-10.1); Chloride 108 mmol/L (98-107); Creatinine, Serum 0.77 mg/dL (0.55-1.02); EST Glomerular Filtration Rate 91 mL/min (>60); Est Glom Filt Rate - Afr Amer 111 mL/min (>60); Globulin 3.3 g/dL (2.2-4.2); Glucose 80 mg/dL (74-106); Potassium 3.6 mmol/L (3.5-5.1); Sodium Level 139 mmol/L (136-145)
[2020-04-10 12:16] LABS: HIV - WCH Non-Reactive (Nonreactive)
[2020-04-11 06:07] LABS: HEPATITIS B SURFACE AG Negative (Negative); Hepatitis A IgM Antibody Negative (Negative); Hepatitis B Core AB IgM Negative (Negative)
[2020-04-11 13:48] LABS: Hep C Antibodies <0.1 s/co ratio (0.0-0.9)
== END ==
DX: Z11.59 Encounter for screening for other viral diseases (principal); F11.20 Opioid dependence, uncomplicated; Z13.228 Encounter for screening for other metabolic disorders; R75 Inconclusive laboratory evidence of human immunodeficiency virus [HIV]
CPT/HCPCS: 36415; 80053; 80074; 84703; 86703

== ENCOUNTER 2021-02-25 10:25 | Emergency (ER) | payer MEDICAID, SELFPAY ==
[2021-02-25 10:26] VITALS: BP 158/97; PULSE 111; RESP 18; TEMP 35.6; O2SAT 100; BMI 25.2
--- NOTE | 2021-02-25 10:43 | ED.RN ---
pt is pleasant and cooperative.
--- NOTE | 2021-02-25 11:02 | EDS_ITS ---
HPI History of Present Illness Chief Complaint: Substance Abuse Informant: patient Associated Symptoms Associated Symptoms: Positive for no and other: (anxious/shaky, achy); Negative for yes/EDC, suicidal ideation and homicidal ideation Narrative Narrative: Patient requesting detox from fentanyl. She last used about 24 hours ago. She is having some mild withdrawal symptoms, feeling anxious and shaky but she denies any abdominal pain, cramping, vomiting or diarrhea. She does not use other drugs. She inhaled fentanyl mostly but sometimes uses it IV. She does it every day for about the past 5-month since her last relapse. Last time she was through detox here was around 2 years ago. She denies any other illness. [facility] Medical History Opioid abuse Home Medications NK 01/26/18 [History Last Taken Unknown] Allergy/AdvReac Type Severity Reaction Status Date / Time No Known Allergies Allergy Verified 02/25/21 10:25 Social History Smoking Status: Current every day smoker tobacco type: cigarettes ROS ROS ED Constitutional Constitutional ED: Denies chills or fever(s) Eyes Eyes: Denies change in vision or diplopia ENT ENT ED: Denies rhinorrhea or sore throat Cardiovascular Cardiovascular: Denies chest pain or palpitations Respiratory/Chest Respiratory/Chest: Denies cough or dyspnea Gastrointestinal Gastrointestinal: Denies abdominal pain, diarrhea, nausea or vomiting Genitourinary Genitourinary ED: Denies dysuria or hematuria Musculoskeletal Musculoskeletal: Denies back pain or neck pain Integumentary Denies abscess or rash Neurologic Neurologic: Denies headache(s), paresthesias or weakness Psychiatric Psychiatric: Reports anxiety; Denies suicidal thoughts EXAM Physical Exam Const Vital Signs: 02/25/21 10:26 Temperature 96.0 F L Temperature Source Temporal Pulse Rate 111 H Respiratory Rate 18 Blood Pressure 158/97 H Blood Pressure Mean 117 Pulse Ox 100 Oxygen Delivery Method Room Air Positive well nourished and well developed General Appearance ED: well developed and NAD HEENT Reports moist mucous membranes normocephalic and atraumatic Eyes PERRL and EOMs intact bilaterally Neck full ROM and supple Resp normal respiratory effort and clear to auscultation bilaterally Cardio regular rate, regular rhythm and no murmurs Cardio Narrative: Mildly tachycardic GI non-tender and non-distended Auscultation: normoactive bowel sounds Palpation: soft Back/Spine no CVA tenderness General Back: other FROM Extremity normal to inspection General Extremety ED: Negative for edema, pulses abnormal or tenderness General Extremity: Negative for edema or pulses abnormal Neuro oriented x3, CN's II-XII intact bilaterally and no sensory deficits noted Sensorium / Orientation: awake and alert Motor Exam: strength 5/5 throughout Skin no rashes or lesions noted and no wounds MDM MDM MDM Narrative Medical decision making narrative: Unfortunately since the bed situation in his hospital is very poor, there is nothing available to admit detox patients to at this time. Social work saw the patient and gave her resources for other places to contact, she is medically cleared, and will be discharged to seek outpatient rehab elsewhere and she is comfortable with that plan. She was given a tramadol prior to discharge for her symptoms. Discharge Plan Triage Chief Complaint: Substance Abuse ED Provider: Derik Crocker Dx/Rx/DC Orders Clinical Impression: Opioid dependence Instructions: ED Opiate Abuse Prescriptions: No Action NK RF: 0 Primary Care Provider: Care Physician,No Primary Referrals: rehad, substance [Other] - As soon as possible (see given resources) Care Physician,No Primary [Primary Care Provider] - Disposition Disposition: Home, Self Care
--- NOTE | 2021-02-25 11:45 | CM.ED ---
SOCIAL WORK Referral Source: Dr. Crocker/coding tech Reason for Consult: Substance Abuse-requesting detox Discussed with staff, there are not resources available to accommodate patient's admission. Call to Treatment NavigatorShea to discuss options for patient. Shea provided resources for [employer], [employer] and [email or web address]. Met with patient in room. Introduced role and reason for referral. Patient reports last use of fentanyl was yesterday. Patient states interested in detox for 3-4 days. Patient provided with resources for detox. Patient states will follow up with [facility]. Patient given contact information for Treatment Navigator for any additional assistance. Plan: Home with resources provided Melanie Smith MSW, DISASTER RECOVERY SPECIALIST
== END 2021-02-25 12:44 | disposition home or self-care (01) ==
PROVIDERS: Emergency Provider Emergency Medicine
DX: F11.20 Opioid dependence, uncomplicated (principal); F17.210 Nicotine dependence, cigarettes, uncomplicated
CPT/HCPCS: 99283

== ENCOUNTER → 2021-05-09 10:25 | Outpatient (CLI) | payer MEDICAID, SELFPAY ==
--- NOTE | 2021-05-09 10:58 | EKG12_ITS ---
Test Reason : MED CHANGE Blood Pressure : / mmHG Vent. Rate : 110 BPM Atrial Rate : 110 BPM P-R Int : 146 ms QRS Dur : 094 ms QT Int : 360 ms P-R-T Axes : 081 053 054 degrees QTc Int : 487 ms Sinus tachycardia Otherwise normal ECG Confirmed by ADOLFO LAM, MARIA DEL CARMEN ([id number]), primer expeditor and drier CINDY PAGE ([id number]) on 05/10/2021 8:28:32 AM Referred By: KARI WRIGHT Confirmed By:MARIA DEL CARMEN MATA MD
[2021-05-09 11:31] LABS: Absolute Lymphocyte Count 1.31 X10^3/uL (0.83-4.51); Absolute Neutrophil Count 7.6 X10^3/uL (2.0-7.7); Basophil# 0.05 X10^3/uL; Basophil% 0.5 % (0-1); Eosinophil# 0.05 X10^3/uL; Eosinophils% 0.5 % (0-5); Hematocrit 40.2 % (37-47); Hemoglobin 13.6 g/dL (12.0-15.0); Lymphocyte # 1.31 X10^3/ul (0.83-4.51); Lymphocyte % 13.6 % (19-41); Mean Corp Hgb Conc 33.8 g/dL (32-36); Mean Corpuscular Hgb 27.8 pg (27.0-32.0); Mean Platelet Vol. 10.8 fl (6.2-12.0); Monocyte# 0.62 X10^3/uL; Monocyte% 6.4 % (0-10); NRBC Flagged by Analyzer 0 % (0-5); Neutrophil # 7.57 X10^3/uL (2.7-7.7); Neutrophil % 78.6 % (47-70); Platelet Count 295 K/mm3 (150-450); RBC Distribution Width CV 12.6 % (11.6-14.6); White Blood Count 9.6 K/mm3 (4.4-11.0)
[2021-05-09 11:35] LABS: Internal QC Validated? YES +Cl - CLEAR BKGD; Pregnancy, Urine Negative Negative
[2021-05-09 12:02] LABS: ALB/GLOB Ratio 0.9 RATIO (0.9-2.4); AST(SGOT) 14 U/L (15-37); Alanine Aminotransfer ALT/SGPT 19 U/L (13-56); Albumin, Serum 3.9 g/dL (3.2-5.0); Alkaline Phosphatase 74 U/L (45-117); Anion Gap 6 (5-15); BUN 15 mg/dL (7-18); BUN/Creat Ratio 18.1 RATIO (10-20); Calcium,Total 8.7 mg/dL (8.5-10.1); Chloride 102 mmol/L (98-107); Creatinine, Serum 0.83 mg/dL (0.55-1.02); EST Glomerular Filtration Rate 83 mL/min (>60); Est Glom Filt Rate - Afr Amer 100 mL/min (>60); Globulin 4.2 g/dL (2.2-4.2); Glucose 112 mg/dL (74-106); Potassium 3.8 mmol/L (3.5-5.1); Protein, Total 8.1 g/dL (6.4-8.2); Sodium Level 136 mmol/L (136-145)
[2021-05-09 12:40] LABS: Hepatitis B Surface Antibody Non-Reactive; Hepatitis B Surface Antigen Non-Reactive (Nonreactive); Hepatitis C Antibody Non-Reactive (Nonreactive)
[2021-05-10 21:07] LABS: HCV Quant. RNA PCR HCV Not Detected IU/mL (.)
[2021-05-11 10:14] LABS: Hepatitis B Core Ab Total Negative (Negative)
== END ==
DX: F11.20 Opioid dependence, uncomplicated (principal)
CPT/HCPCS: 36415; 80053; 81025; 85025; 86704; 86706; 86803; 87340; 87522; 93005

== ENCOUNTER 2021-07-24 10:56 | Emergency (ER) | payer MEDICAID, SELFPAY ==
[2021-07-24 10:57] VITALS: BP 158/110; PULSE 126; RESP 18; TEMP 37; O2SAT 96; BMI 26.7
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
[2021-07-24] MEDS: Ketorolac 60 MG/2 ML Vial IM (11:34)
== END 2021-07-24 11:58 | disposition home or self-care (01) ==
PROVIDERS: Emergency Provider Emergency Medicine; Visit Provider Emergency Medicine
DX: S67.20XA Crushing injury of unspecified hand, initial encounter (principal); F17.210 Nicotine dependence, cigarettes, uncomplicated; Y04.8XXA Assault by other bodily force, initial encounter
CPT/HCPCS: 73130; 96372; 99283

== ENCOUNTER 2022-09-05 16:33 | Observation (INO) | payer MEDICAID, SELFPAY ==
[2022-09-05 16:34] VITALS: BP 143/92; PULSE 87; RESP 19; TEMP 36.2; O2SAT 100; BMI 26.6
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
--- NOTE | 2022-09-05 17:14 | ED.RN ---
Detox consent signed.
--- NOTE | 2022-09-05 17:20 | CM.ED ---
Social Work SW introduced self and role to patient. Pt reports she wishes to detox from opiates. Pt has been here for detox previously and did not have any questions. SW provided emotional support. SW called treatment navigator brood station manager to notify them of a new [facility] patient. Rashida Yoder SHIFT SUPERVISOR RN, DIRECTOR OF EDUCATION
[2022-09-05 17:59] LABS: Absolute Lymphocyte Count 2.18 X10^3/uL (0.83-4.51); Absolute Neutrophil Count 4.2 X10^3/uL (2.0-7.7); Basophil# 0.07 X10^3/uL; Basophil% 0.9 % (0-1); Eosinophil# 0.55 X10^3/uL; Eosinophils% 7.1 % (0-5); Hematocrit 37.9 % (37-47); Hemoglobin 12.7 g/dL (12.0-15.0); Lymphocyte # 2.18 X10^3/ul (0.83-4.51); Lymphocyte % 28.2 % (19-41); Mean Corp Hgb Conc 33.5 g/dL (32-36); Mean Corpuscular Hgb 28.5 pg (27.0-32.0); Mean Corpuscular Volume 85.2 fL (81-99); Mean Platelet Vol. 10.5 fl (6.2-12.0); Monocyte# 0.68 X10^3/uL; Monocyte% 8.8 % (0-10); NRBC Flagged by Analyzer 0 % (0-5); Neutrophil # 4.23 X10^3/uL (2.7-7.7); Neutrophil % 54.7 % (47-70); Platelet Count 282 K/mm3 (150-450); RBC Distribution Width CV 12.6 % (11.6-14.6); RBC Distribution Width SD 39.1 fl (35.1-43.9); Red Blood Count 4.45 M/mm3 (4.2-5.4); White Blood Count 7.7 K/mm3 (4.4-11.0)
[2022-09-05 18:15] LABS: ALB/GLOB Ratio 0.9 RATIO (0.9-2.4); AST(SGOT) 11 U/L (15-37); Alanine Aminotransfer ALT/SGPT 13 U/L (13-56); Albumin, Serum 3.5 g/dL (3.2-5.0); Alkaline Phosphatase 64 U/L (45-117); Anion Gap 7 (5-15); BUN 13 mg/dL (7-18); BUN/Creat Ratio 17.3 RATIO (10-20); Calcium,Total 8.7 mg/dL (8.5-10.1); Chloride 104 mmol/L (98-107); Creatinine, Serum 0.75 mg/dL (0.55-1.02); EST Glomerular Filtration Rate 92 mL/min (>60); Est Glom Filt Rate - Afr Amer 112 mL/min (>60); Estimated Creatinine Clearance 93.31 ml/min; Globulin 3.7 g/dL (2.2-4.2); Glucose 104 mg/dL (74-106); Potassium 3.4 mmol/L (3.5-5.1); Protein, Total 7.2 g/dL (6.4-8.2); Sodium Level 139 mmol/L (136-145)
--- NOTE | 2022-09-05 18:21 | HP.PCM.HOS_ITS ---
HPI - General General Date of Service: 09/05/22 Chief Complaint: I want to get clean. HPI Narrative JOHN MURCIA, is a 36 F with PMH of drug abuse who presents to the ED requesting detox. The patient has a long history of drug abuse starting at the age of 23. She reports she has done detox and treatment programs previously and has remained sober for as long as 5 years before going back. The patient has used IV drugs in the past, but hasn't used in 2 years. She has been using for the last year and reports she snorts between 1g-1.5g of fentanyl daily. The patient last used yesterday morning. The patient reports she is just tired of it and wishes to stop for good. She has done treatment through the [facility] program previously and was happy with it. She reports she has a good support system. She does have a history of depression, but denies any current feelings of depression now and denies any thoughts of suicide. The patient reports she is starting to get some body aches, runny nose and anxiety from the withdrawal. She otherwise denies any other symptoms. [facility], [facility] Medical History (Updated 09/05/22 @ 18:[address] Shayna Jeff MD) Finger fracture Heroin abuse Hx MRSA infection Methamphetamine abuse Opioid abuse Home Medications NK 09/05/22 [History Last Taken Unknown] Allergy/AdvReac Type Severity Reaction Status Date / Time No Known Allergies Allergy Verified 09/05/22 16:37 Family History (Updated 09/05/22 @ 18:[address] Shayna Jeff MD) Other No pertinent family history Surgical History (Updated 09/05/22 @ 18:[address] Shayna Jeff MD) IUD (intrauterine device) in place Social History (Updated 09/05/22 @ 18:[address] 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 Smoking Status: Current every day smoker tobacco type: cigarettes Smoking packs per day: 0.5 Smoking cigarettes per day: 10.0 Years smoked: 12 Smoking pack- years: 6.00 Electronic Cigarette Use: not used alcohol intake: former year quit: 2007 details: never a heavy drinker substance use type: opiates do you feel safe at home: Yes ROS Constitutional Constitutional: Denies change in weight, fatigue, fever(s) or weakness Eyes Eyes: Denies change in vision ENT HEENT: Reports nasal discharge; Denies abnormal hearing, nasal congestion or sore throat Cardiovascular Cardiovascular: Denies chest pain, dyspnea on exertion, edema, lightheadedness, palpitations or syncope Respiratory/Chest Respiratory/Chest: Denies cough or dyspnea Gastrointestinal Gastrointestinal: Denies abdominal pain, constipation, diarrhea, nausea or vomiting Genitourinary Genitourinary: Reports other Details: IUD in place, no menstrual periods ; Denies burning urination, difficulty urinating or dysuria Musculoskeletal Musculoskeletal: Reports myalgias Neurologic Neurologic: Denies confusion, dizziness, headache(s), numbness, seizures, syncope or tingling Psychiatric Psychiatric: Reports anxiety; Denies depression or suicidal ideation Allergic/Immunologic Allergic/Immunologic: Reports rhinitis Vital Signs Vital Signs Vital Signs: 09/05/22 16:34 Temperature 97.1 F L Temperature Source Temporal Pulse Rate 87 Respiratory Rate 19 H Blood Pressure 143/92 H Blood Pressure Mean 109 Pulse Ox 100 Oxygen Delivery Method Room Air Weight Weight: 159 lb 14.4 oz Body Mass Index (BMI) 26.6 Physical Exam Const alert, oriented x3, no apparent distress and healthy appearing General Appearance: cooperative Orientation / Consciousness: Negative for confused HEENT normocephalic, head/scalp atraumatic, hearing grossly normal bilaterally, moist oral mucous membranes, oropharynx normal and dentition normal Eyes PERRL and conjunctivae normal Resp normal respiratory effort, no retractions, no use of accessory muscles and clear to auscultation bilaterally Auscultation: Negative for crackles, rhonchi or wheezes Cardio regular rate, regular rhythm and no murmurs GI normal to inspection, nondistended, normoactive bowel sounds, soft to palpation and non-tender Extremity normal to inspection and no clubbing, cyanosis or edema Neuro oriented x3 and moves all extremities Sensorium / Orientation: awake, alert, oriented to person, oriented to place and oriented to time Psych affect normal Results Lab / Micro Data Attestation: I reviewed the patient's lab results. Result Diagrams: 09/05/22 17:45 09/05/22 17:45 Labs: Laboratory Results - last 24 hr 09/05/22 17:45: WBC 7.7, RBC 4.45, Hgb 12.7, Hct 37.9, MCV 85.2, MCH 28.5, MCHC 33.5, RDW Std Deviation 39.1, RDW Coeff of Nilda 12.6, Plt Count 282, MPV 10.5, Immature Gran % (Auto) 0.300, Neut % (Auto) 54.7, Lymph % (Auto) 28.2, [place] % (Auto) 8.8, Eos % (Auto) 7.1 H, Baso % (Auto) 0.9, Absolute Neuts (auto) 4.2, Absolute Lymphs (auto) 2.18, Nucleated RBC % 0 09/05/22 17:45: Sodium 139, Potassium 3.4 L, Chloride 104, Carbon Dioxide 28.0, Anion Gap 7, BUN 13, Creatinine 0.75, Estim Creat Clear Calc 93.31, Est GFR (MDRD) Af Amer 112, Est GFR (MDRD) Non-Af 92, BUN/Creatinine Ratio 17.3, Glucose 104, Calcium 8.7, Total Bilirubin 0.30, AST 11 L, ALT 13, Alkaline Phosphatase 64, Total Protein 7.2, Albumin 3.5, Globulin 3.7, Albumin/Globulin Ratio 0.9 09/05/22 17:53: Ur Drug Screen Comment Assessment & Plan Assessment/Plan (1) Opiate withdrawal: PLAN: Will admit for detox. Will continue with hourly COWS screening and CINA protocol Q4H. Will order buprenorphine PRN a COWS score >8 as well as PRN medications to help with symptom control including loperamide for loose stools, methocarbamol for muscle aches, zofran for nausea/vomiting, bentyl for abdominal pain, vistaril and gabapentin for anxiety and trazodone for sleep. Will consult the [facility] to discuss treatment options following completion of detox. (2) Hypokalemia: PLAN: Potassium low. Will replete. (3) Anxiety and depression: PLAN: Medications as above. Will continue to monitor. She denies any thoughts of suicide. (4) Tobacco dependence due to cigarettes: PLAN: Will order patches as needed. PLAN: Plan FULL CODE, confirmed with patient DVT prophylaxis - Encourage ambulation Disposition - The patient is hemodynamically stable. Anticipate the detox will be more than 2 days. Once withdrawal symptoms have resolved, patient may discharge to a treatment program. Charges/Coding Visit Charges Inpatient E&M: 41595 Init Hosp L1
[2022-09-05 18:23] LABS: Internal QC Validated? YES +Cl - CLEAR BKGD; Pregnancy, Urine Negative Negative
[2022-09-05 18:44] LABS: Amphetamine Urine VISTA POSITIVE (<1000 ng/mL); Barbiturate Urine VISTA NEGATIVE (< 200 ng/mL); Benzodiazepine Urine VISTA NEGATIVE (< 200 ng/mL); Cocaine Urine VISTA NEGATIVE (< 300 ng/mL); Ecstacy Urine VISTA POSITIVE (< 500 ng/mL); Methadone Urine VISTA NEGATIVE (< 300 ng/mL); PCP Urine VISTA NEGATIVE (< 25 ng/mL); THC Urine VISTA POSITIVE (< 50 ng/mL); Vista UDS pH Range 5
[2022-09-05 18:46] VITALS: BP 124/69; PULSE 82; RESP 16; TEMP 36.2; O2SAT 97
[2022-09-05 18:49] VITALS: BMI 29.3
[2022-09-05 19:39] VITALS: BP 115/70; PULSE 76; RESP 16; TEMP 36.8; O2SAT 99
[2022-09-05] MEDS: Potassium Chloride Oral Tablet 20 MEQ 40 MEQ PO (19:54)
[2022-09-05] MEDS: hydrOXYzine PAM 25 MG Capsule 50 MG PO (21:20)
[2022-09-05] MEDS: Buprenorphine HCl 2 MG TAB.SUBL 4 MG SL (21:20)
[2022-09-05] MEDS: traZODone 100 MG Tablet PO (21:20)
[2022-09-06 02:00] VITALS: BP 119/60; PULSE 78; RESP 14; TEMP 36.8; O2SAT 97
[2022-09-06] MEDS: Buprenorphine HCl 2 MG TAB.SUBL 4 MG SL ×2 (03:17→11:28)
[2022-09-06] MEDS: Methocarbamol 750 MG Tablet 1500 MG PO (03:22)
[2022-09-06] MEDS: Gabapentin 300 MG Capsule PO (03:22)
--- NOTE | 2022-09-06 07:35 | PCM.PN.HOSP ---
Reason for Visit Reason for Visit: Diagnoses Hypokalemia (09/05/22) Opioid dependence with withdrawal (09/05/22) Nicotine dependence, cigarettes, uncomplicated (09/05/22) Major depressive disorder, single episode, unspecified (09/05/22) Anxiety disorder, unspecified (09/05/22) Objective Data Objective Data Vital Signs: Vital Signs Temp Pulse Resp BP Pulse Ox O2 Del Method 98.2 F 78 14 119/60 97 Room Air 09/06/22 02:00 09/06/22 02:00 09/06/22 02:00 09/06/22 02:00 09/06/22 02:00 09/06/22 02:00 Oxygen Delivery Method Room Air Weight: 176 lb 5.917 oz Body Mass Index (BMI) 29.3 Intake & Output: Intake and Output for Last 24 Hours 09/04/22 09/05/22 09/06/22 23:59 23:59 23:59 Intake Total 500 / 500 Balance 500 / 500 Lab / Micro Data Result Diagrams: 09/05/22 17:45 09/05/22 17:45 Labs: Laboratory Results - last 24 hr 09/05/22 17:45: WBC 7.7, RBC 4.45, Hgb 12.7, Hct 37.9, MCV 85.2, MCH 28.5, MCHC 33.5, RDW Std Deviation 39.1, RDW Coeff of Nilda 12.6, Plt Count 282, MPV 10.5, Immature Gran % (Auto) 0.300, Neut % (Auto) 54.7, Lymph % (Auto) 28.2, [place] % (Auto) 8.8, Eos % (Auto) 7.1 H, Baso % (Auto) 0.9, Absolute Neuts (auto) 4.2, Absolute Lymphs (auto) 2.18, Nucleated RBC % 0 09/05/22 17:45: Sodium 139, Potassium 3.4 L, Chloride 104, Carbon Dioxide 28.0, Anion Gap 7, BUN 13, Creatinine 0.75, Estim Creat Clear Calc 93.31, Est GFR (MDRD) Af Amer 112, Est GFR (MDRD) Non-Af 92, BUN/Creatinine Ratio 17.3, Glucose 104, Calcium 8.7, Total Bilirubin 0.30, AST 11 L, ALT 13, Alkaline Phosphatase 64, Total Protein 7.2, Albumin 3.5, Globulin 3.7, Albumin/Globulin Ratio 0.9 09/05/22 17:53: Urine Opiates Screen NEGATIVE, Urine Methadone Screen NEGATIVE, Ur Barbiturates Screen NEGATIVE, Ur Phencyclidine Scrn NEGATIVE, Ur Amphetamines Screen POSITIVE H, MDMA (Ecstasy) Screen POSITIVE H, U Benzodiazepines Scrn NEGATIVE, Urine Cocaine Screen NEGATIVE, U Cannabinoids Screen POSITIVE H, Ur Drug Screen Comment 09/05/22 17:53: Urine Test Negative Physical Exam Narrative Seen and examined in the presence of patient's nurse. Denies IV use of needle. Admitted for opioid withdrawal symptom. Physical exam General: Awake. Mild lethargic and sleepy. Oriented x3. HEENT: Atraumatic, PERRLA, EOMI, Normocephalic Oral: Oral mucosa dry. No Gingival or Mucosal Lesions/ Ulcerations Neck: Supple, No JVD, Negative Carotid Bruits Lungs: Air entry diminished in bilateral lung bases. No crepitation/rhonchi Cardiovascular: Regular rate, Regular Rhythm, Normal S1, Normal S2, No murmurs Abdomen: Bowel Sounds Present, Soft, Non Tender, Non-Distended : No renal angle tenderness. No suprapubic tenderness. Extremities: No edema, Capillary Refill Less than 3 Seconds Skin: No rashes, No breakdown Musculoskeletal: No Tenderness to Palpation of Joints or Extremities Neurological: Cranial nerves II-XII grossly intact, DTR 2+/4 and Symmetrical, Neuro grossly intact Psych/Mental Status: Flat affect. Denies suicidal ideation Assessment & Plan Assessment/Plan (1) Opiate withdrawal: PLAN: With history of chronic opioid use, dependence and tolerance: The patient is started on buprenorphine along with other adjunctive medications as needed for medical stabilization as per order set of opioid withdrawal syndrome.Patient also on trazodone, hydroxyzine, gabapentin as needed ordered. Advised quitting opioid use. contracting manager consult. CINA and COWS score. (2) Hypokalemia: PLAN: Potassium low. Was repleted. Repeat potassium magnesium and phosphorus. (3) Anxiety and depression: PLAN: She denies any thoughts of suicide, suicidal attempt. (4) Tobacco dependence due to cigarettes: PLAN: Plan FULL CODE, confirmed with patient DVT prophylaxis - Encourage ambulation Charges/Coding Visit Charges Inpatient E&M: 99197 Subs Hosp L2
[2022-09-06 08:00] VITALS: BP 121/81; PULSE 93; RESP 16; TEMP 37.1; O2SAT 98
--- NOTE | 2022-09-06 11:57 | NURSING ---
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 Nurse into see pt states she wants to leave AM. Dr. Osullivan notified and papers signed.
[2022-09-06 12:11] LABS: Anion Gap 4 (5-15); BUN 10 mg/dL (7-18); BUN/Creat Ratio 13.8 RATIO (10-20); Calcium,Total 8.8 mg/dL (8.5-10.1); Chloride 109 mmol/L (98-107); Creatinine, Serum 0.73 mg/dL (0.55-1.02); EST Glomerular Filtration Rate 96 mL/min (>60); Est Glom Filt Rate - Afr Amer 116 mL/min (>60); Estimated Creatinine Clearance 95.87 ml/min; Glucose 100 mg/dL (74-106); Magnesium 2.4 mg/dL (1.6-2.6); Phosphorus 3.1 mg/dL (2.5-4.9); Potassium 4.4 mmol/L (3.5-5.1); Sodium Level 139 mmol/L (136-145)
--- NOTE | 2022-09-06 14:38 | DS.PCM_ITS ---
Providers Date of Admission: 09/05/22 Date of Discharge: 09/06/22 Primary Care Physician: No Primary Care Phys Reason For Visit: OPIATE WITHDRAWL Diagnosis Discharge Diagnosis (1) Opiate withdrawal: Status: Acute Code(s): F11.23 - Opioid dependence with withdrawal Plan: With history of chronic opioid use, dependence and tolerance: The patient is started on buprenorphine along with other adjunctive medications as needed for medical stabilization as per order set of opioid withdrawal syndrome.Patient also on trazodone, hydroxyzine, gabapentin as needed ordered. Advised quitting opioid use. senior sales operations manager consult. CINA and COWS score. Patient was in choreal position when I saw her in the morning. She has a lot of anxiety and medication. Later on she fell going and signed AMA. We informed her risk and complications of AMA but she is mentally capable to make decision therefore she signed AMA (2) Hypokalemia: Status: Acute Code(s): E87.6 - Hypokalemia Plan: Potassium low. Was repleted. Repeat potassium magnesium and phosphorus. (3) Anxiety and depression: Status: Chronic Code(s): F41.9 - Anxiety disorder, unspecified; F32.9 - Major depressive disorder, single episode, unspecified Plan: She denies any thoughts of suicide, suicidal attempt. (4) Tobacco dependence due to cigarettes: Status: Chronic Code(s): F17.210 - Nicotine dependence, cigarettes, uncomplicated Plan FULL CODE, confirmed with patient DVT prophylaxis - Encourage ambulation Medications at Discharge Home Medications NK 09/05/22 Physical Exam Narrative Please see progress note of the same date. Weight / BMI Weight Weight: 176 lb 5.917 oz Body Mass Index (BMI) 29.3 ABG / Lab / Microbiology Data Result Diagrams: 09/05/22 17:45 09/06/22 11:38 Laboratory: Laboratory Results - last 24 hr 09/05/22 17:45: WBC 7.7, RBC 4.45, Hgb 12.7, Hct 37.9, MCV 85.2, MCH 28.5, MCHC 33.5, RDW Std Deviation 39.1, RDW Coeff of Nilda 12.6, Plt Count 282, MPV 10.5, Immature Gran % (Auto) 0.300, Neut % (Auto) 54.7, Lymph % (Auto) 28.2, [place] % (Auto) 8.8, Eos % (Auto) 7.1 H, Baso % (Auto) 0.9, Absolute Neuts (auto) 4.2, Absolute Lymphs (auto) 2.18, Nucleated RBC % 0 09/05/22 17:45: Sodium 139, Potassium 3.4 L, Chloride 104, Carbon Dioxide 28.0, Anion Gap 7, BUN 13, Creatinine 0.75, Estim Creat Clear Calc 93.31, Est GFR (MDRD) Af Amer 112, Est GFR (MDRD) Non-Af 92, BUN/Creatinine Ratio 17.3, Glucose 104, Calcium 8.7, Total Bilirubin 0.30, AST 11 L, ALT 13, Alkaline Phosphatase 64, Total Protein 7.2, Albumin 3.5, Globulin 3.7, Albumin/Globulin Ratio 0.9 09/05/22 17:53: Urine Opiates Screen NEGATIVE, Urine Methadone Screen NEGATIVE, Ur Barbiturates Screen NEGATIVE, Ur Phencyclidine Scrn NEGATIVE, Ur Amphetamines Screen POSITIVE H, MDMA (Ecstasy) Screen POSITIVE H, U Benzodiazepines Scrn NEGATIVE, Urine Cocaine Screen NEGATIVE, U Cannabinoids Screen POSITIVE H, Ur Drug Screen Comment 09/05/22 17:53: Urine Test Negative 09/06/22 11:38: Sodium 139, Potassium 4.4, Chloride 109 H, Carbon Dioxide 26.0, Anion Gap 4 L, BUN 10, Creatinine 0.73, Estim Creat Clear Calc 95.87, Est GFR (MDRD) Af Amer 116, Est GFR (MDRD) Non-Af 96, BUN/Creatinine Ratio 13.8, Glucose 100, Calcium 8.8, Phosphorus 3.1, Magnesium 2.4 Meaningful Use Info Meaningful Use Diagnoses (Choose all that apply): None applicable Discharge Plan Admission Admit Date/Time: 09/05/22 18:11 Attending Provider: Rhys Osullivan Primary Care Provider: Care Physician,No Primary Consulting Providers: Shayna Jeff Discharge Orders/Prescriptions Prescriptions: No Action NK Referrals / Follow Up: Care Physician,No Primary [Primary Care Provider] - Disposition Disposition (needs filled in before D/C Order can be placed): Against Medical Advice Charges/Coding Addendum Addendum: Please cancel the billing charge of the progress note. Visit Charges Inpatient E&M: 26631 Disch Hosp
== END 2022-09-06 11:56 | disposition left against medical advice (07) ==
LOC: ED 17:05 → MS3 18:47
PROVIDERS: Physician Assistant; Admitting Provider Internal Medicine; Emergency Provider Emergency Medicine; Visit Provider Internal Medicine
DX: F11.23 Opioid dependence with withdrawal (principal); E87.6 Hypokalemia; F17.210 Nicotine dependence, cigarettes, uncomplicated; Z86.14 Personal history of Methicillin resistant Staphylococcus aureus infection
CPT/HCPCS: 36415; 80048; 80053; 80307; 81025; 83735; 84100; 85025; 99283; H0012

== ENCOUNTER 2023-12-20 19:59 | Emergency (ER) | payer SELFPAY ==
[2023-12-20 20:01] VITALS: BP 148/111; PULSE 115; RESP 18; TEMP 37.2; O2SAT 97; BMI 28.5
[2023-12-20 20:17] VITALS: O2SAT 95
--- NOTE | 2023-12-20 20:24 | EDS_ITS ---
HPI History of Present Illness Chief Complaint: Shortness of Breath Informant: patient Onset/Context/Timing Onset: Yesterday Context: gradual Timing: Continuous Quality: Positive for Dyspnea on exertion Worsened by: Exertion Relieved by: Nothing Associated Symptoms Negative for cough, rhinorrhea, post nasal drip, ear pain, fever, sore throat, chills, clear sputum, white sputum, yellow sputum or green sputum Chest Pain: Positive for None Narrative Narrative: Patient presents with shortness of breath that began yesterday. Patient states it is gradually gotten worse. Patient states the pain is constant. Patient describes it as a tightness. Patient states her breathing is worse with any exertion. Patient states nothing seems to help with it. Patient denies any cough. Patient denies any sore throat or rhinorrhea. Patient denies any fevers or chills. Patient denies any chest pain. Patient denies any cardiac or PE risk factors. PE Risk Factors: Negative for Cancer, OCP + Smoking + > 35, Prior DVT or PE, Recent immobilization, Recent surgery or [facility] Medical History Opiate abuse, continuous Finger fracture Opioid abuse Hx MRSA infection Methamphetamine abuse Heroin abuse Home Medications ?Medication ?Instructions ?Recorded ?Last Taken ?Type albuterol sulfate 90 mcg/actuation 1 - 2 puff inhalation Q4H PRN PRN 12/20/23 Unknown Rx aerosol inhaler (Ventolin HFA) Wheezing ##1 Allergy/AdvReac Type Severity Reaction Status Date / Time No Known Allergies Allergy Verified 12/20/23 20:01 Family History Other No pertinent family history Surgical History IUD (intrauterine device) in place Social History household members: family current occupational status: employed 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 Smoking Status: Heavy Smoker (>10/day) Electronic Cigarette Use: not used alcohol intake: former year quit: 2007 details: never a heavy drinker substance use type: opiates do you feel safe at home: Yes ROS ROS ED Constitutional Constitutional ED: Denies chills or fever(s) Eyes Eyes: Reports blurry vision; Denies diplopia ENT ENT ED: Denies rhinorrhea or sore throat Cardiovascular Cardiovascular: Denies chest pain or palpitations Respiratory/Chest Respiratory/Chest: Reports dyspnea; Denies cough Gastrointestinal Gastrointestinal: Denies nausea or vomiting Genitourinary Genitourinary ED: Denies dysuria or hematuria Musculoskeletal Musculoskeletal: Reports neck pain; Denies back pain Integumentary Denies abscess or rash Neurologic Neurologic: Denies headache(s) or weakness Allergic/Immunologic Allergic/Immunologic ED: Denies mouth swelling or urticaria EXAM Physical Exam Const Vital Signs: 12/20/23 20:01 12/20/23 20:17 12/20/23 20:42 Temperature 98.9 F Temperature Source Oral Pulse Rate 115 H 95 Respiratory Rate 18 18 Respiratory Effort Non-Labored Short of Breath Respiratory Depth Normal Respiratory Pattern Normal Blood Pressure 148/111 H Blood Pressure Mean 123 Pulse Ox 97 Oxygen Delivery Method Room Air 12/20/23 21:00 12/20/23 22:00 Temperature Temperature Source Pulse Rate 95 Respiratory Rate Respiratory Effort Respiratory Depth Respiratory Pattern Blood Pressure 136/72 H 146/77 H Blood Pressure Mean 93 100 Pulse Ox 95 94 Oxygen Delivery Method Room Air Room Air Positive well nourished and well developed General Appearance ED: well developed and NAD HEENT Reports moist mucous membranes Neck supple and no JVD Resp normal respiratory effort Auscultation: wheezes expiratory wheezes and throughout Cardio regular rhythm Rate: tachycardic GI non-tender and non-distended Palpation: soft Neuro oriented x3, CN's II-XII intact bilaterally and no sensory deficits noted [place] Coma Scale: document GCS findings Spontaneous Obeys Commands Oriented 15 Sensorium / Orientation: alert Speech: speech normal Motor Exam: strength 5/5 throughout Psych mental status grossly normal MDM MDM MDM Narrative Medical decision making narrative: Differential diagnosis includes COPD exacerbation, reactive airway disease, pneumonia, viral infection, and bronchitis. Chest x-ray will be obtained to assess for pneumonia. COVID-19, influenza, and RSV PCR will be obtained to assess for viral illness. Lab Data Attestation: I reviewed the patient's lab results. Lab results narrative: COVID-19 PCR was reviewed and was negative. Influenza PCR was reviewed and was negative for influenza A and influenza B. RSV PCR was reviewed and was negative. Radiography Chest X-Ray - ED: 2 View, Read by ED Physician, Read by Radiologist and No Acute Disease Diagnostic Testing: Clinical Impression(s) from Imaging Studies Chest X-Ray 12/20/23 21:40 IMPRESSION: No evidence of active intrathoracic disease. Electronically Signed: Callie Valdivia MD at 22:19 EDT , PA and lateral chest x-ray was obtained. There are 2 views. On my independent interpretation, lung granger are clear. There is normal cardiac silhouette. Bony thorax is normal. There is no acute process noted. Radiologist also interpreted the x-ray and agrees. Treatment and Re-Evaluation :: Patient was given a DuoNeb aerosol here. Patient was given an albuterol aerosol. Patient was feeling better on reevaluation. Patient was advised of her findings. Patient was given a prescription for an albuterol inhaler. Patient was instructed to follow-up with her primary care physician in 5 to 7 days. Patient understood and was agreeable with the plan. All questions were answered. Discharge Plan Triage Chief Complaint: Shortness of Breath ED Provider: Hermes Walls Dx/Rx/DC Orders Clinical Impression: RAD (reactive airway disease) with wheezing, Acute viral bronchitis Instructions: ED Bronchitis with Wheezing (Adult) Prescriptions: New albuterol sulfate [Ventolin HFA] 90 mcg/actuation HFA aerosol inhaler 1 - 2 puff inhalation Q4H PRN PRN (Reason: Wheezing) Qty: 1 0RF Primary Care Provider: Care Physician,No Primary Referrals: Joya Morales MD [Med Staff - Active Staff] - 5-7 Days Care Physician,No Primary [Primary Care Provider] - Print Language: Belarusian Disposition Disposition: Home, Self Care
[2023-12-20] MEDS: Albuterol 2.5 MG/3 ML VIAL.NEB. INHALATION (20:40)
[2023-12-20] MEDS: Ipratropium/Albuterol Sulfate 3 ML AMPUL.NEB INHALATION (20:40)
[2023-12-20 20:42] VITALS: PULSE 95; RESP 18
[2023-12-20 21:00] VITALS: BP 136/72; PULSE 95; O2SAT 95
--- NOTE | 2023-12-20 21:40 | RAD_ITS ---
INDICATION: COUGH EXAMINATION/TECHNIQUE: X-RAY - XR Chest 2 Views COMPARISON: Prior study dated: 05/22/2012. FINDINGS: LINES/DEVICES: None. LUNGS: No consolidation. No pneumothorax. MEDIASTINUM: Unremarkable. CARDIAC SILHOUETTE: Not enlarged. BONES AND SOFT TISSUES: No acute abnormalities. RAD/Chest PA and Lateral IMPRESSION: No evidence of active intrathoracic disease. Electronically Signed: Callie Valdivia MD at 22:19 EDT ,
[2023-12-20 22:00] VITALS: BP 146/77; O2SAT 94
[2023-12-20 22:40] VITALS: BP 146/77; PULSE 91; RESP 18; TEMP 36.6; O2SAT 94
== END 2023-12-20 22:43 | disposition home or self-care (01) ==
PROVIDERS: Emergency Provider Emergency Medicine; Visit Provider Emergency Medicine
DX: J20.8 Acute bronchitis due to other specified organisms (principal); J45.909 Unspecified asthma, uncomplicated; F17.200 Nicotine dependence, unspecified, uncomplicated
CPT/HCPCS: 71046; 87631; 94640; 99282

== ENCOUNTER 2024-08-22 17:42 | Observation (INO) | payer MEDICAID, SELFPAY ==
[2024-08-22 17:42] VITALS: BP 102/63; PULSE 65; RESP 14; TEMP 36.4; O2SAT 99
--- NOTE | 2024-08-22 20:38 | PCM.HP.STD ---
HPI - General General Date of Admission: 08/22/24 Date of Service: 08/22/24 Chief Complaint: Acute opiate withdrawal HPI Narrative The patient is a 38 y/o F w/ PMHx: Polysubstance abuse (current opiate abuse with fentanayl 1.5 gm daily snorted, prior heroin abuse similarly snorted, prior IV drug abuse, former methamphetamine abuse, cannabis use), Tobacco use, Anxiety and Depression who presents to the [facility] ED on 08/22/2024 with noted acute opiate withdrawal onset starting on day of presentation following last dose of fentanyl the day prior in the morning with mild abdominal pain/cramping, generalized body aches and pains, fatigue and restlessness as well as diaphoresis. Patient interested in attaining clean status. Workup in the ED included T97.5, heart rate 65, BP 102/63, respiratory rate 14, 99% on room air, CMP with glucose 125 otherwise unremarkable, serum testing negative, alcohol less than 10.1, awaiting lab to obtain CBC as patient was a difficult stick per discussion with ED staff. [facility] Medical History Anxiety and depression Tobacco use Opiate abuse, continuous Hx MRSA infection Methamphetamine abuse Heroin abuse Home Medications Medication Instructions Recorded Last Taken Type NK 08/22/24 Unknown History Allergy/AdvReac Type Severity Reaction Status Date / Time No Known Allergies Allergy Verified 08/22/24 17:42 Family History Father Lymphoma Mother No problems noted. Surgical History History of incision and drainage IUD (intrauterine device) in place Social History (Updated 08/22/24 @ 21:[address] 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 Prior IVDA. do you feel safe at home: Yes ROS ROS Narrative Admission Review of Systems: CONSTITUTIONAL: No weight loss, fever, chills, + weakness or fatigue. HEENT: + Mild congestion/rhinorrhea. Eyes: No visual loss, blurred vision, double vision or yellow sclerae. Ears, Nose, Throat: No hearing loss, sneezing, sore throat. SKIN: No rash or itching, lesions, wounds. CARDIOVASCULAR: No chest pain, chest pressure or chest discomfort, palpitations, edema, orthopnea, syncopal events. RESPIRATORY: No shortness of breath, cough or sputum, wheezing, hemoptysis. GASTROINTESTINAL: + anorexia, abdominal cramping. No nausea, vomiting, diarrhea, abdominal pain, melena, BRBPR. GENITOURINARY: No dysuria, frequency, urgency or retention. NEUROLOGICAL: + Restlessness. No headache, dizziness, syncope, paralysis, ataxia, numbness or tingling in the extremities, focal weakness, change in bowel or bladder control, seizure. MUSCULOSKELETAL: + muscle, back pain, joint pain or stiffness. HEMATOLOGIC: No anemia, bleeding or bruising. LYMPHATICS: No enlarged nodes. No history of splenectomy. PSYCHIATRIC: No history of depression or anxiety. ENDOCRINOLOGIC: + Diaphoresis. No cold or heat intolerance. No polyuria or polydipsia. ALLERGIES: No history of asthma, hives, eczema or rhinitis. Vital Signs Vital Signs Vital Signs: 08/22/24 17:42 Temperature 97.5 F L Temperature Source Oral Pulse Rate 65 Respiratory Rate 14 Blood Pressure 102/63 Blood Pressure Mean 76 Pulse Ox 99 Oxygen Delivery Method Room Air Physical Exam Narrative Physical Examination: General: Awake, alert, oriented x 3 and cooperative, seated upright in the ED bed fatigued, mildly restless. Skin: Normal color, normal turgor, no icterus, no cyanosis except occasional stage ecchymoses, abrasions. HEENT: AT/NC, EOMI, PERRLA, dry MM, no carotid bruits or JVD noted. Lungs: Mildly diminished, greater bases, appropriate effort, no rales, ronchi or wheezing. Heart: Regular rate and rhythm; no gallop, rub audible. Abdomen: Soft, mild generalized discomfort with no rebound or guarding, no marked distention, mildly hyperactive BS, no appreciated HSM. Extremities: No cyanosis, clubbing, or edema. Neurological: Patient awake, alert, oriented as noted, cognitive function intact; pupils equally reactive to light and accommodation, cranial nerves gross normal, moving all 4 extremities, no focal deficits, strength mildly to moderately globally decreased given withdrawal, restless, mildly diaphoretic. Psychiatric: Affect appears fatigued, restless, no acute evidence of depressive or anxiety feelings but does have underlying history. Results Lab / Micro Data 08/22/24 20:59 08/22/24 20:59 Assessment & Plan Assessment/Plan (1) Opiate withdrawal: PLAN: Plan The patient is a 38 y/o F w/ PMHx: Polysubstance abuse (current opiate abuse with fentanayl 1.5 gm daily snorted, prior heroin abuse similarly snorted, prior IV drug abuse, former methamphetamine abuse, cannabis use), Tobacco use, Anxiety and Depression who presents to the [facility] ED on 08/22/2024 with noted acute opiate withdrawal onset. #1. Acute Opiate Withdrawal: Will admit to [place], routine labs including CBC, CMP, urine for drug screen obtained in the ED and pending upon evaluation, does have an IUD in however will await testing as long as negative will proceed with admission and will initiate and continue on protocol with tapering course of Subutex, as needed tylenol, ibuprofen, bowel regimen, gabapentin, Bentyl, Vistaril, methocarbamol, clonidine, PRN nightly trazodone for insomnia, IV fluids, IV antiemetics. Once patient clinically improved and completion of taper nearing will plan consultation with case management for transition to next level of rehabilitation care. #2. Polysubstance Abuse with prior history of IV drug abuse: Given significant polysubstance abuse history with reported opiate, methamphetamine and heroin use will request HIV, hepatitis and syphilis testing to be cautious. Encourage early PCP follow-up/establishment. #3. Anxiety and depression: Likely contributes greatly to underlying substance abuse history, per current list not on any regimen, would benefit from ongoing counseling/therapy and potentially medication, 180/case management/social work consulted. #4. Tobacco Abuse: Encouraged cessation, inpatient consultation per RT, NR if desired. #5. DVT prophylaxis: Low risk for type of presentation, encourage ambulation. Charges/Coding Visit Charges Inpatient E&M: 76750 Init Hosp L3
--- NOTE | 2024-08-22 20:39 | EDS_ITS ---
HPI History of Present Illness Chief Complaint: Substance Abuse Narrative Narrative: Chief complaint and HPI: Requesting detox from opiates. 38-year-old female with past medical history of fentanyl abuse presents for detox from opiates. Patient states she is a previous IV drug abuser however currently snorts fentanyl. Last used yesterday. Endorses diffuse backaches and just feels generally unwell. Denies any other substance abuse. Denies any fever, chills, chest pain, shortness of breath, abdominal pain, nausea, vomiting. Review of systems: See HPI Medications: As listed on the chart Allergies: As listed on the chart PFSH: Per chart Vital signs: As listed on the chart. Reviewed. Physical exam: Gen: A&O x3, NAD Head: Normocephalic, atraumatic Eyes: No sclera icterus, conjunctiva clear, PERRL ENT: Moist mucous membranes Neck: Trachea midline, No JVD CV: RRR, no murmurs, no peripheral edema Resp: Lungs CTA BL, no w/r/c GI: Abd soft, non-distended, non-tender, no r/r/g Musc: Full ROM, no deformity Skin: Warm, dry Neuro: Alert, oriented, grossly intact, sensation intact Psych: Cooperative, appropriate mood and affect [facility] Medical History (Updated 08/22/24 @ 22:05 by Meera Monreal) Migraines Tobacco use Opiate abuse, continuous Anxiety and depression Hx MRSA infection Methamphetamine abuse Heroin abuse Home Medications Medication Instructions Recorded Last Taken Type NK 08/22/24 Unknown History Allergy/AdvReac Type Severity Reaction Status Date / Time No Known Allergies Allergy Verified 08/22/24 17:42 Family History Father Lymphoma Mother No problems noted. Surgical History History of incision and drainage IUD (intrauterine device) in place Social History (Updated 08/22/24 @ 21:[address] 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 Prior IVDA. do you feel safe at home: Yes EXAM Physical Exam Const Vital Signs: 08/22/24 17:42 Temperature 97.5 F L Temperature Source Oral Pulse Rate 65 Respiratory Rate 14 Blood Pressure 102/63 Blood Pressure Mean 76 Pulse Ox 99 Oxygen Delivery Method Room Air MDM MDM MDM Narrative Medical decision making narrative: 38-year-old female with past medical history of fentanyl abuse presents for detox from opiates. Differential diagnosis includes but is not limited to requesting detox from opiates, electrolyte abnormality, dehydration, polysubstance abuse. CMP without electrolyte abnormality or TAB. No transaminitis. Serum negative. UA positive for methadone, fentanyl, amphetamines, cocaine, cannabis. Negative for alcohol. Patient will warrant admission. Hospitalist was contacted and patient was discussed. They accepted admission. Patient confirmed understanding the plan. Impression: 1. Requesting detox for opiate abuse 2. Polysubstance abuse Discharge Plan Disposition Disposition: Acute Care [facility] Discharge Date/Time: 08/22/24 21:40
[2024-08-22 20:57] VITALS: BP 111/73; PULSE 64; RESP 16; TEMP 36.9; O2SAT 97
[2024-08-22 21:00] VITALS: BP 111/73; TEMP 36.9; BMI 28.3
[2024-08-22 21:16] LABS: Internal QC Validated? YES +Cl - CLEAR BKGD; Pregnancy, Serum, hCG Quali. NEGATIVE Negative
[2024-08-22 21:32] LABS: ALB/GLOB Ratio 1.7 RATIO (0.9-2.4); AST(SGOT) 14 U/L (<=31); Alanine Aminotransfer ALT/SGPT 9 U/L (<=34); Albumin, Serum 4.3 g/dL (3.5-5.0); Alcohol, Blood (Medical)-Serum < 10.1 mg/dL (<=10.0); Alkaline Phosphatase 75 U/L (35-104); Anion Gap 15 (5-15); BUN 16 mg/dL (4-19); BUN/Creat Ratio 15.6 RATIO (10-20); Calcium,Total 9.3 mg/dL (7.6-11.0); Chloride 99 mmol/L (98-108); EST Glomerular Filtration Rate 74 (>60); Globulin 2.5 g/dL (2.2-4.2); Glucose 125 mg/dL (70-99); Potassium 3.7 mmol/L (3.3-5.1); Protein, Total 6.8 g/dL (5.9-8.4); Sodium Level 135 mmol/L (133-145); Total Bilirubin 0.16 mg/dL (0.00-1.30)
[2024-08-22 21:43] LABS: HIV Nonreactive (Nonreactive); Syphilis Antibodies Nonreactive (Nonreactive)
[2024-08-22 21:59] VITALS: BP 106/70; PULSE 55; RESP 16; TEMP 36.6; O2SAT 97; BMI 27.8
--- NOTE | 2024-08-22 22:25 | NURSING ---
pt refusing to have an IV inserted
[2024-08-22 23:00] LABS: Hepatitis B Surface Antibody Nonreactive
[2024-08-22 23:04] LABS: Hepatitis B Surface Antigen Nonreactive (Nonreactive); Hepatitis C Antibody Nonreactive (Nonreactive)
[2024-08-22 23:35] LABS: Amphetamine Urine PRESUMPTIVE POSITIVE (<1000 ng/mL); Barbiturate Urine NEGATIVE (< 200 ng/mL); Benzodiazepine Urine NEGATIVE (< 200 ng/mL); Buprenorphine Urine NEGATIVE (< 200 ng/mL); Cocaine Urine PRESUMPTIVE POSITIVE (< 300 ng/mL); Fentanyl, Urine PRESUMPTIVE POSITIVE; Methadone Urine PRESUMPTIVE POSITIVE (< 300 ng/mL); Opiates Urine NEGATIVE (< 300 ng/mL); Oxycodone, Urine NEGATIVE (< 100 ng/mL); PCP Urine NEGATIVE (< 25 ng/mL); THC Urine PRESUMPTIVE POSITIVE (< 50 ng/mL)
[2024-08-23 05:24] VITALS: BP 118/74; PULSE 71; RESP 14; TEMP 36.6; O2SAT 98
[2024-08-23 07:02] LABS: Absolute Lymphocyte Count 2.38 X10^3/uL (0.83-4.51); Absolute Neutrophil Count 2.5 X10^3/uL (2.0-7.7); Basophil% 1.7 % (0-1); Eosinophil# 0.48 X10^3/uL; Eosinophils% 8.1 % (0-5); Hemoglobin 13.8 g/dL (12.0-15.0); Lymphocyte # 2.38 X10^3/ul (0.83-4.51); Mean Corp Hgb Conc 32.9 g/dL (32-36); Mean Corpuscular Hgb 27.3 pg (27.0-32.0); Mean Corpuscular Volume 83.2 fL (81-99); Mean Platelet Vol. 10.9 fl (6.2-12.0); Monocyte# 0.53 X10^3/uL; Monocyte% 8.9 % (0-10); NRBC Flagged by Analyzer 0 % (0-5); Neutrophil # 2.45 X10^3/uL (2.7-7.7); Neutrophil % 41.1 % (47-70); Platelet Count 257 K/mm3 (150-450); RBC Distribution Width CV 13.3 % (11.6-14.6); RBC Distribution Width SD 40.2 fl (35.1-43.9); Red Blood Count 5.05 M/mm3 (4.2-5.4)
[2024-08-23 08:01] VITALS: BP 124/67; PULSE 66; RESP 16; TEMP 36.5; O2SAT 97
[2024-08-23] MEDS: hydrOXYzine PAM 25 MG Capsule 50 MG PO ×2 (08:06→15:45)
--- NOTE | 2024-08-23 10:44 | ADDICTION ---
Met with patient to complete RAMP assessments. Pt was A&Ox4 and was able to answer all questions. She had just begun going through w/d. Clinician will discuss discharge planning in depth tomorrow.
--- NOTE | 2024-08-23 13:08 | PN_ITS ---
Subjective Subjective Patient seen and examined. She had no active complaints. She denied any symptoms of withdrawal. Review of symptoms otherwise negative. Objective Data Objective Data Vital Signs: Vital Signs Temp Pulse Resp BP Pulse Ox O2 Del Method 97.7 F L 66 16 124/67 H 97 Room Air 08/23/24 08:01 08/23/24 08:01 08/23/24 08:01 08/23/24 08:01 08/23/24 08:01 08/23/24 08:01 Oxygen Delivery Method Room Air Weight: 166 lb 14.239 oz Body Mass Index (BMI) 27.8 Intake & Output: Intake and Output for Last 24 Hours 08/21/24 08/22/24 08/23/24 23:59 23:59 23:59 Intake Total 200 / 200 Balance 200 / 200 Lab / Micro Data 08/23/24 06:50 08/22/24 20:59 Labs: Laboratory Results - last 24 hr 08/22/24 20:59: WBC Cancelled, Corrected WBC Cancelled, RBC Cancelled, Hgb Cancelled, Hct Cancelled, MCV Cancelled, MCH Cancelled, MCHC Cancelled, RDW Std Deviation Cancelled, RDW Coeff of Nilda Cancelled, Plt Count Cancelled, MPV Cancelled, Immature Gran % (Auto) Cancelled, Neut % (Auto) Cancelled, Lymph % (Auto) Cancelled, [place] % (Auto) Cancelled, Eos % (Auto) Cancelled, Baso % (Auto) Cancelled, Absolute Neuts (auto) Cancelled, Absolute Lymphs (auto) Cancelled, Total Counted Cancelled, Neutrophils % (Manual) Cancelled, Band Neutrophils % Cancelled, Lymphocytes % (Manual) Cancelled, Monocytes % (Manual) Cancelled, Eosinophils % (Manual) Cancelled, Basophils % (Manual) Cancelled, Metamyelocytes % Cancelled, Myelocytes % Cancelled, Promyelocytes % Cancelled, Blast Cells % Cancelled, Plasma Cell % (Manual) Cancelled, Other Cells % Cancelled, Nucleated RBC % Cancelled, Nucleated RBCs/100 WBC Cancelled, Differential Comment Cancelled, Diff Path Review Cancelled, Hypersegmented Neuts Cancelled, Atypical Lymphocytes Cancelled, Reactive Lymphocytes Cancelled, Smudge Cells Cancelled, Toxic Granulation Cancelled, Toxic Vacuolation Cancelled, Dohle Bodies Cancelled, Del Rods Cancelled, Platelet Estimate Cancelled, Plt Morphology Comment Cancelled, RBC Morphology Cancelled 08/22/24 20:59: RBC Morphology Cancelled, Polychromasia Cancelled, Hypochromasia Cancelled, Basophilic Stippling Cancelled, Anisocytosis Cancelled, Microcytosis Cancelled, Macrocytosis Cancelled, Spherocytes Cancelled, Sickle Cells Cancelled, Target Cells Cancelled, Tear Drop Cells Cancelled, Ovalocytes Cancelled, Stomatocytes Cancelled, [place]errano-[place] Bodies Cancelled, [place] Cells Cancelled, Bite Cells Cancelled, Crenated Cell Cancelled, Acanthocytes (Spur) Cancelled, Rouleaux Cancelled, Schistocytes Cancelled, Sodium 135, Potassium 3.7, Chloride 99, Carbon Dioxide 21.0, Anion Gap 15, BUN 16, Creatinine 1.00, Estim Creat Clear Calc 78.30, Est GFR (MDRD) Non-Af 74, BUN/Creatinine Ratio 15.6, Glucose 125 H, Calcium 9.3, Total Bilirubin 0.16, AST 14, ALT 9, Alkaline Phosphatase 75, Total Protein 6.8, Albumin 4.3, Globulin 2.5, Albumin/Globulin Ratio 1.7, Serum , Qual NEGATIVE, Ethyl Alcohol < 10.1, Syphilis Total Ab Nonreactive, Hep Bs Antigen Nonreactive, Hep Bs Antibody Nonreactive, Hepatitis C Antibody Nonreactive, HIV 1&2 Antibody Nonreactive 08/22/24 22:30: Urine Opiates Screen NEGATIVE, U Buprenorphine Qual NEGATIVE, Ur Oxycodone Screen NEGATIVE, Urine Methadone Screen PRESUMPTIVE POSITIVE, Urine Fentanyl Screen PRESUMPTIVE POSITIVE, Ur Barbiturates Screen NEGATIVE, Ur Phencyclidine Scrn NEGATIVE, Ur Amphetamines Screen PRESUMPTIVE POSITIVE, U Benzodiazepines Scrn NEGATIVE, Urine Cocaine Screen PRESUMPTIVE POSITIVE, U Cannabinoids Screen PRESUMPTIVE POSITIVE 08/23/24 06:50: WBC 6.0, RBC 5.05, Hgb 13.8, Hct 42.0, MCV 83.2, MCH 27.3, MCHC 32.9, RDW Std Deviation 40.2, RDW Coeff of Nilda 13.3, Plt Count 257, MPV 10.9, Immature Gran % (Auto) 0.200, Neut % (Auto) 41.1 L, Lymph % (Auto) 40.0, [place] % (Auto) 8.9, Eos % (Auto) 8.1 H, Baso % (Auto) 1.7 H, Absolute Neuts (auto) 2.5, Absolute Lymphs (auto) 2.38, Nucleated RBC % 0 Physical Exam Const alert, oriented x3 and no apparent distress General Appearance: cooperative HEENT normocephalic, head/scalp atraumatic, moist oral mucous membranes and oropharynx normal Eyes EOMs intact bilaterally Neck no lymphadenopathy and supple Lymph Lymphatic: no lymphedema noted Resp normal respiratory effort, normal air movement and clear to auscultation bilaterally Cardio regular rate, regular rhythm, S1 normal heart sound, S2 normal heart sound and no murmurs GI normal to inspection, nondistended, normoactive bowel sounds, soft to palpation, non-tender and non-distended Extremity normal capillary refill, no clubbing, cyanosis or edema and no calf tenderness General Extremity: no tenderness to palpation of joints or extremities Skin General Skin Exam: no breakdown Neuro CN's II-XII intact bilaterally, no focal motor deficits and no sensory deficits noted Motor Exam: strength 5/5 throughout and general weakness Psych thought process normal, cooperative and affect normal Appearance: appropriate Assessment & Plan Assessment/Plan (1) Desire for detoxification: (2) Opiate withdrawal: PLAN: Plan #Acute opioid withdrawal * usually snorts fentanyl. * Denies any symptoms of withdrawal. On opioid withdrawal protocol with buprenorphine adjunctive meds for symptomatic relief. Monitor COWS score * #Anxiety and depression: Currently not on any meds. Follow-up with PCP for medications as needed #Nicotine dependence: Counseled to quit. Nicotine patch as needed DVT prophylaxis: Low risk. Encourage ambulation. Charges/Coding Visit Charges Inpatient E&M: 76750 Subs Hosp L2
[2024-08-23 15:15] VITALS: BP 155/84; PULSE 86; RESP 16; TEMP 36.6; O2SAT 98
[2024-08-23] MEDS: Buprenorphine HCl 2 MG TAB.SUBL 4 MG SL (15:45)
--- NOTE | 2024-08-23 17:10 | DS.PCM_ITS ---
Providers Date of Admission: 08/22/24 Date of Discharge: 08/23/24 Primary Care Physician: No Primary Care Phys Reason For Visit: ACUTE OPIATE WITHDRAWL Diagnosis Discharge Diagnosis (1) Desire for detoxification: Status: Acute (2) Opiate withdrawal: Status: Acute Code(s): F11.23 - Opioid dependence with withdrawal Plan #Acute opioid withdrawal * usually snorts fentanyl. * Denies any symptoms of withdrawal. On opioid withdrawal protocol with buprenorphine adjunctive meds for symptomatic relief. Monitor COWS score * #Anxiety and depression: Currently not on any meds. Follow-up with PCP for medications as needed #Nicotine dependence: Counseled to quit. Nicotine patch as needed DVT prophylaxis: Low risk. Encourage ambulation. Medications at Discharge Home Medications NK 08/22/24 Hospital Course Operations None Procedures None Summary of Care Provided Minutes Spent on Discharge: 38 Hospital Course: Patient is a 38-year-old female with past medical history as outlined including history of polysubstance abuse namely opioids and methamphetamine as well as cannabis and nicotine. She was admitted to the ED on 08/22/2024 for acute opioid withdrawal. She usually snorted fentanyl and had last use was on the morning of the day before admission. She started having abdominal cramping and generalized aches and chills as well as fatigue and restlessness and increased sweating so she came into the ED for acute opioid withdrawal. She was admitted and managed for acute opioid withdrawal and started on withdrawal protocol with buprenorphine with adjunctive meds for symptomatic relief. Patient was initially agreeable and tolerating the detox process but subsequently decided to sign out AGAINST MEDICAL ADVICE later in the day on 08/23/2024. Patient was seen on 08/23/2024, seen and examined on that day. She had no active complaints then and said her withdrawal symptoms are improved. However subsequently decided to sign out AMA. Physical Exam Const alert, oriented x3 and no apparent distress General Appearance: cooperative, comfortable and well kempt Orientation / Consciousness: awake Exam Limitations: no limitations HEENT normocephalic, head/scalp atraumatic, hearing grossly normal bilaterally, moist oral mucous membranes and oropharynx normal Mouth: oral and palatal mucosa normal Eyes EOMs intact bilaterally and conjunctivae normal Neck no lymphadenopathy and supple Lymph Lymphatic: no lymphedema noted Resp normal respiratory effort, normal air movement and clear to auscultation bilaterally Cardio regular rate, regular rhythm, S1 normal heart sound, S2 normal heart sound and no murmurs GI normal to inspection, nondistended, normoactive bowel sounds, soft to palpation, non-tender and non-distended Extremity normal to inspection, full ROM, normal capillary refill, no clubbing, cyanosis or edema and no calf tenderness General Extremity: no tenderness to palpation of joints or extremities Skin no rashes or lesions noted General Skin Exam: no breakdown Neuro oriented x3, moves all extremities, no focal motor deficits and no sensory deficits noted Sensorium / Orientation: awake Motor Exam: strength 5/5 throughout and general weakness Psych thought process normal, cooperative and affect normal Appearance: appropriate Weight / BMI Weight Weight: 166 lb 14.239 oz Body Mass Index (BMI) 27.8 ABG / Lab / Microbiology Data 08/23/24 06:50 08/22/24 20:59 Laboratory: Laboratory Results - last 24 hr 08/22/24 20:59: WBC Cancelled, Corrected WBC Cancelled, RBC Cancelled, Hgb Cancelled, Hct Cancelled, MCV Cancelled, MCH Cancelled, MCHC Cancelled, RDW Std Deviation Cancelled, RDW Coeff of Nilda Cancelled, Plt Count Cancelled, MPV Cancelled, Immature Gran % (Auto) Cancelled, Neut % (Auto) Cancelled, Lymph % (Auto) Cancelled, [place] % (Auto) Cancelled, Eos % (Auto) Cancelled, Baso % (Auto) Cancelled, Absolute Neuts (auto) Cancelled, Absolute Lymphs (auto) Cancelled, Total Counted Cancelled, Neutrophils % (Manual) Cancelled, Band Neutrophils % Cancelled, Lymphocytes % (Manual) Cancelled, Monocytes % (Manual) Cancelled, Eosinophils % (Manual) Cancelled, Basophils % (Manual) Cancelled, Metamyelocytes % Cancelled, Myelocytes % Cancelled, Promyelocytes % Cancelled, Blast Cells % Cancelled, Plasma Cell % (Manual) Cancelled, Other Cells % Cancelled, Nucleated RBC % Cancelled, Nucleated RBCs/100 WBC Cancelled, Differential Comment Cancelled, Diff Path Review Cancelled, Hypersegmented Neuts Cancelled, Atypical Lymphocytes Cancelled, Reactive Lymphocytes Cancelled, Smudge Cells Cancelled, Toxic Granulation Cancelled, Toxic Vacuolation Cancelled, Dohle Bodies Cancelled, Del Rods Cancelled, Platelet Estimate Cancelled, Plt Morphology Comment Cancelled, RBC Morphology Cancelled 08/22/24 20:59: RBC Morphology Cancelled, Polychromasia Cancelled, Hypochromasia Cancelled, Basophilic Stippling Cancelled, Anisocytosis Cancelled, Microcytosis Cancelled, Macrocytosis Cancelled, Spherocytes Cancelled, Sickle Cells Cancelled, Target Cells Cancelled, Tear Drop Cells Cancelled, Ovalocytes Cancelled, Stomatocytes Cancelled, [place] Bodies Cancelled, [place] Cells Cancelled, Bite Cells Cancelled, Crenated Cell Cancelled, Acanthocytes (Spur) Cancelled, Rouleaux Cancelled, Schistocytes Cancelled, Sodium 135, Potassium 3.7, Chloride 99, Carbon Dioxide 21.0, Anion Gap 15, BUN 16, Creatinine 1.00, Estim Creat Clear Calc 78.30, Est GFR (MDRD) Non-Af 74, BUN/Creatinine Ratio 15.6, Glucose 125 H, Calcium 9.3, Total Bilirubin 0.16, AST 14, ALT 9, Alkaline Phosphatase 75, Total Protein 6.8, Albumin 4.3, Globulin 2.5, Albumin/Globulin Ratio 1.7, Serum , Qual NEGATIVE, Ethyl Alcohol < 10.1, Syphilis Total Ab Nonreactive, Hep Bs Antigen Nonreactive, Hep Bs Antibody Nonreactive, Hepatitis C Antibody Nonreactive, HIV 1&2 Antibody Nonreactive 08/22/24 22:30: Urine Opiates Screen NEGATIVE, U Buprenorphine Qual NEGATIVE, Ur Oxycodone Screen NEGATIVE, Urine Methadone Screen PRESUMPTIVE POSITIVE, Urine Fentanyl Screen PRESUMPTIVE POSITIVE, Ur Barbiturates Screen NEGATIVE, Ur Phencyclidine Scrn NEGATIVE, Ur Amphetamines Screen PRESUMPTIVE POSITIVE, U Benzodiazepines Scrn NEGATIVE, Urine Cocaine Screen PRESUMPTIVE POSITIVE, U Cannabinoids Screen PRESUMPTIVE POSITIVE 08/23/24 06:50: WBC 6.0, RBC 5.05, Hgb 13.8, Hct 42.0, MCV 83.2, MCH 27.3, MCHC 32.9, RDW Std Deviation 40.2, RDW Coeff of Nilda 13.3, Plt Count 257, MPV 10.9, Immature Gran % (Auto) 0.200, Neut % (Auto) 41.1 L, Lymph % (Auto) 40.0, [place] % (Auto) 8.9, Eos % (Auto) 8.1 H, Baso % (Auto) 1.7 H, Absolute Neuts (auto) 2.5, Absolute Lymphs (auto) 2.38, Nucleated RBC % 0 D/C Instructions DC O2, CPAP, BIPAP Needs Home O2 Discharge instructions: No Meaningful Use Info Meaningful Use Meaningful Use Diagnoses (Choose all that apply): None applicable Ischemic Stroke Statin Dosing Therapy Reference: STATIN DOSE THERAPY REFERENCE: * Patients > 75 years receive moderate or high dose statin therapy. * Patients 75 years or YOUNGER should receive HIGH intensity statin dose unless contraindicated. You will be required to document reason for non-treatment if statin daily dose does not meet guidelines. HIGH DOSE STATIN THERAPY DAILY Atorvastatin > than or = to 40 mg Rosuvastatin > than or = to 20 mg Amlodipine + Atorvastatin > than or = to 2.5/40 mg Ezetimibe + Simvastatin 10/80 mg Simvastatin 80mg Discharge Plan Admission Admit Date/Time: 08/22/24 20:39 Primary Reason for Your Visit: acute opioid withdrawal Attending Provider: Ericka Vera Primary Care Provider: Care Physician,No Primary Consulting Providers: Soraya Yoon Discharge Orders/Prescriptions Prescriptions: No Action NK Referrals / Follow Up: Care Physician,No Primary [Primary Care Provider] - Disposition Disposition (needs filled in before D/C Order can be placed): Against Medical Advice Charges/Coding Visit Charges Inpatient E&M: 52332 Disch Hosp >30min
--- OUTSIDE RECORDS SUMMARY | 2024-10-06 07:46 | XMS RPT_ITS | CCD ---
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 use, Anxiety and Depression who presents to the [facility] ED on 08/22/2024 with noted acute opiate withdrawal onset starting on day of presentation following last dose of fentanyl the day prior in the morning with mild abdominal pain/cramping, generalized body aches and pains, fatigue and restlessness as well as diaphoresis. Patient interested in attaining clean status. Workup in the ED included T97.5, heart rate 65, BP 102/63, respiratory rate 14, 99% on room air, CMP with glucose 125 otherwise unremarkable, serum testing negative, alcohol less than 10.1, awaiting lab to obtain CBC as patient was a difficult stick per discussion with ED staff. [facility] Medical History Anxiety and depression Tobacco use Opiate abuse, continuous Hx MRSA infection Methamphetamine abuse Heroin abuse Home Medications ???Medication ???Instructions ???Recorded ???Last Taken ???Type NK 08/22/24 Unknown History Allergy/AdvReac Type Severity Reaction Status Date / Time No Known Allergies Allergy Verified 08/22/24 17:42 Family History Father Lymphoma Mother No problems noted. Surgical History History of incision and drainage IUD (intrauterine device) in place Social History (Updated 08/22/24 @ 21:[address] 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 Prior IVDA. do you feel safe at home: Yes ROS ROS Narrative Admission Review of Systems: CONSTITUTIONAL: No weight loss, fever, chills, + weakness or fatigue. HEENT: + Mild congestion/rhinorrhea. Eyes: No visual loss, blurred vision, double vision or yellow sclerae. Ears, Nose, Throat: No hearing loss, sneezing, sore throat. SKIN: No rash or itching, lesions, wounds. CARDIOVASCULAR: No chest pain, chest pressure or chest discomfort, palpitations, edema, orthopnea, syncopal events. RESPIRATORY: No shortness of breath, cough or sputum, wheezing, hemoptysis. GASTROINTESTINAL: + anorexia, abdominal cramping. No nausea, vomiting, diarrhea, abdominal pain, melena, BRBPR. GENITOURINARY: No dysuria, frequency, urgency or retention. NEUROLOGICAL: + Restlessness. No headache, dizziness, syncope, paralysis, ataxia, numbness or tingling in the extremities, focal weakness, change in bowel or bladder control, seizure. MUSCULOSKELETAL: + muscle, back pain, joint pain or stiffness. HEMATOLOGIC: No anemia, bleeding or bruising. LYMPHATICS: No enlarged nodes. No history of splenectomy. PSYCHIATRIC: No history of depression or anxiety. ENDOCRINOLOGIC: + Diaphoresis. No cold or heat intolerance. No polyuria or polydipsia. ALLERGIES: No history of asthma, hives, eczema or rhinitis. Vital Signs Vital Signs Vital Signs: 08/22/24 17:42 Temperature 97.5 F L Temperature Source Oral Pulse Rate 65 Respiratory Rate 14 Blood Pressure 102/63 Blood Pressure Mean 76 Pulse Ox 99 Oxygen Delivery Method Room Air Physical Exam Narrative Physical Examination: General: Awake, alert, oriented x 3 and cooperative, seated upright in the ED bed fatigued, mildly restless. Skin: Normal color, normal turgor, no icterus, no cyanosis except occasional stage ecchymoses, abrasions. HEENT: AT/NC, EOMI, PERRLA, dry MM, no carotid bruits or JVD noted. Lungs: Mildly diminished, greater bases, appropriate effort, no rales, ronchi or wheezing. Heart: Regular rate and rhythm; no gallop, rub audible. Abdomen: Soft, mild generalized discomfort with no rebound or guarding, no marked distention, mildly hyperactive BS, no appreciated HSM. Extremities: No cyanosis, clubbing, or edema. Neurological: Patient awake, alert, oriented as noted, cognitive function intact; pupils equall (more content not included)... Normal [facility] HIVon 08-22-2024 HIV Non-Reactive Normal Nonreactive [facility] Comment on above: Result Comment: Non- Reactive Reactive Repeatedly reactive samples must be confirmed according to CDC recommended confirmatory algorithms. The subresults for either HIVAG or AHIV can be used as an aid in the selection of the confirmation algorithm for reactive samples. Send out specimens with Reactive results to [facility] for confirmation. Order the HIV antibody detection and differentiation: #[id number] Performed By: #### L 3890.6006, L509.8002 #### [facility] [address] [place], [place], [id number] Hepatitis B Surface Antibody on 08-22-2024 HEP B Surf Ab Non-Reactive Normal [facility] Comment on above: Result Comment: <8.5 mIU/mL: Non-Reactive 8.5<= x <11.5 mIU/mL: Indeterminate >=11.5 mIU/mL: Reactive Non Reactive: Inconsistent with immunity less than <10 mIU/mL Reactive: Consistent with immunity greater than or equal to 10 mIU/mL Performed By: #### L 3890.6102, L3890.6202, L3890.6301 #### [facility] [address] [place], [address] Hepatitis C Antibodyon 08-22 Hepatitis C Ab Non-Reactive Normal Nonreactive [facility] Comment on above: Order Comment: Reaso n for Exam: substance abuse Result Comment: Reac tive: Presumptive evidence of antibodies to HCV. Follow CDC recommendations for supplemental testing. Non-Reactive: Antibodies to HCV were not detected; does not exclude the possibility of exposure to HCV Reactive Results are presumptive evidence of antibodies to HCV. Follow CDC recommendations for supplemental testing. Order confirmation testing: HCV Quant by PCR testing - HCVPCR #[id number] Non Reactive: < 0.8 Equivocal: >/= 0.8 to < 1.0 Reactive: >/= 1.0 The CDC requires that a reactive/equivocal HCV antibody result be sent out for confirmation. HCV Quant by PCR testing. Performed By: #### L 3890.6102, L3890.6202, L3890.6301 ####[facility] [address] [place], [place], [address] L3890.6102on 08-22-2024 HEP B Surf Ag Non-Reactive Normal Nonreactive [facility] Comment on above: Order Comment: Reaso n for Exam: substance abuse Result Comment: Reac tive: Presumptive evidence of HBV. Repeatedly reactive samples must be confirmed using a neutralization test ([employer] HBsAg Confirmatory Test) Non-Reactive: HBsAg not detected; does not exclude the possibility of exposure to HBV Performed By: #### L 3890.6102, L3890.6202, L3890.6301 #### [facility] [address] [place], [place], [id number] Laboratory - Chemistry and C hemistry - challengeOrdered By: Alok Mccray on 08-22-2024 AST [Catalytic activity/Vol] 14 U/L <32 [facility] - Microbiology an d Antimicrobial susceptibilityOrdered By: Soraya Yoon on 08-22-2024 HBV surface Ag Ql (S) Non-Reactive Nonreactive [facility] Comment on above: Reactive: Presumptiv e evidence of HBV. Repeatedly reactive samples must be confirmed using a neutralization test ([employer] HBsAg Confirmatory Test)Non-Reactive: HBsAg not detected; does not exclude the possibility of exposure to HBV No Panel InformationOrdered By: Alok Mccray on 08-22-2024 Urine Buprenorphine Qualitative Negative < 200 ng/mL [facility] Urine Oxycodone Screen Negative < 100 ng/mL [facility] No Panel InformationOrdered By: Soraya Yoon on 08-22-2024 HIV (1&2) Antibody Non-Reactive Nonreactive [facility] Comment on above: Non-ReactiveReactive Repeatedly reactive samples must be confirmed according to CDC recommended confirmatory algorithms. The subresults for either HIVAG or AHIV can be used as an aid in the selection of the confirmation algorithm for reactive samples.Send out specimens with Reactive results to [facility] for confirmation.Order the HIV antibody detection and differentiation: #[id number] Potassium measurement (mass/ volume)Ordered By: Alok Mccray on 08-22-2024 Potassium (Unsp spec) [Mass/Vol] 3.7 mmol/L 3.3-5.1 [facility] ,Serum,hCG Quali.on 08-22-2024 HCG, SERUM QUAL Negative Normal [facility] Comment on above: Performed By: #### L 500.4050, L505.5000, L700.6800, L501.9100, L100.0100 ####[facility] [address] [place], [address] Quantitative urine opiates m easurementOrdered By: Alok Mccray on 08-22-2024 Opiates Ql (U) Negative < 300 ng/mL [facility] Screening urine fentanyl luz elena surementOrdered By: Alok Mccray on 08-22-2024 fentaNYL Screen Ql (U) Positive [facility] Comment on above: If confirmation test ing is needed, a separate order will be required to send out testing to the reference laboratory. Serum beta-hCG test, qualita tiveOrdered By: Alok Mccray on 08-22-2024 Beta HCG ( test) Ql Negative [facility] Serum creatinine measurement (mass/volume)Ordered By: Alok Mccray on 08-22-2024 Creatinine [Mass/Vol] 1.00 mg/dL 0.70-1.20 [facility] Serum globulin measurementOr dered By: Alok Mccray on 08-22-2024 Globulin (S) [Mass/Vol] 2.5 g/dL 2.2-4.2 [facility] Serum glucose measurement (m ass/volume)Ordered By: Alok Mccray on 08-22-2024 Glucose [Mass/Vol] 125 mg/dL High 70-99 [facility] Serum hepatitis B virus surf shakeel antibody detectionOrdered By: Soraya Yoon on 08-22-2024 HBV surface Ab Ql (S) Non-Reactive [facility] Comment on above: <8.5 mIU/mL: Non-Willa ctive8.5<= x <11.5 mIU/mL: Indeterminate>=11.5 mIU/mL: Reactive Non Reactive: Inconsistent with immunity less than <10 mIU/mL Reactive: Consistent with immunity greater than or equal to 10 mIU/mL Serum or plasma alanine magallanes otransferase (ALT) measurementOrdered By: Alok Mccray on 08-22-2024 ALT [Catalytic activity/Vol] 9 U/L <35 [facility] Serum or plasma albumin latoya urement (mass/volume)Ordered By: Alok Mancini on 08-22-2024 Albumin [Mass/Vol] 4.3 g/dL 3.5-5.0 [facility] Serum or plasma albumin/glob ulin mass ratioOrdered By: [facility] HospitalCharla on 08-22-2024 Albumin/Globulin [Mass ratio] 1.7 {ratio} 0.9-2.4 [facility] Serum or plasma alkaline elena sphatase measurementOrdered By: Alok Mccray on 08-22-2024 ALP [Catalytic activity/Vol] 75 U/L 35-104 [facility] Serum or plasma calcium latoya urement (mass/volume)Ordered By: Alok Mancini on 08-22-2024 Calcium [Mass/Vol] 9.3 mg/dL 7.6-11.0 [facility] Serum or plasma ethanol latoya urement (mass/volume)Ordered By: Alok Mancini on 08-22-2024 Ethanol [Mass/Vol] mg/dL <10.1 [facility] Comment on above: This test is for med ical purposes only. The legal definition of intoxication varies according to local law. Serum or plasma urea nitroge n measurement (mass/volume)Ordered By: Alok Mccray on 08-22-2024 Urea nitrogen [Mass/Vol] 16 mg/dL 4-19 [facility] Sodium levelOrdered By: Felix spencer Mccray on 08-22-2024 Sodium [Moles/Vol] 135 mmol/L 133-145 [facility] Syphilis Antibodieson 2024 Syphilis Abs Non-Reactive Normal Nonreactive [facility] Comment on above: Performed By: #### L 3890.6006, L509.8002 #### [facility] [address] [place], [address] Total proteinOrdered By: Hector obed Mccray on 08-22-2024 Protein [Mass/Vol] 6.8 g/dL 5.9-8.4 [facility] Urine Drug Screen (VISTA)on 08-22-2024 AMPHETAMINES Positive Normal <1000 ng/mL [facility] Comment on above: Result Comment: If c onfirmation testing is needed, a separate order will be required to send out testing to the reference laboratory. Performed By: #### L 500.4050, L505.5000, L700.6800, L501.9100, L100.0100 ####[facility] [address] [place], [address] BARBITIURATES Negative Normal < 200 ng/mL [facility] Comment on above: Performed By: #### L 500.4050, L505.5000, L700.6800, L501.9100, L100.0100 ####[facility] [address] [place], [address] BENZODIAZIPINE Negative Normal < 200 ng/mL [facility] Comment on above: Performed By: #### L 500.4050, L505.5000, L700.6800, L501.9100, L100.0100 ####[facility] [address] [place], [address] BUP Ur Drug Scr Negative Normal < 200 ng/mL [facility] Comment on above: Performed By: #### L 500.4050, L505.5000, L700.6800, L501.9100, L100.0100 ####[facility] [address] [place], [address] COCAINE Positive Normal < 300 ng/mL [facility] Comment on above: Result Comment: If c onfirmation testing is needed, a separate order will be required to send out testing to the reference laboratory. Performed By: #### L 500.4050, L505.5000, L700.6800, L501.9100, L100.0100 ####[facility] [address] [place], [address] Fentanyl Positive Normal [facility] Comment on above: Result Comment: If c onfirmation testing is needed, a separate order will be required to send out testing to the reference laboratory. Performed By: #### L 500.4050, L505.5000, L700.6800, L501.9100, L100.0100 ####[facility] [address] [place], [address] METHADONE Positive Normal < 300 ng/mL [facility] Comment on above: Result Comment: If c onfirmation testing is needed, a separate order will be required to send out testing to the reference laboratory. Performed By: #### L 500.4050, L505.5000, L700.6800, L501.9100, L100.0100 ####[facility] [address] [place], [address] OPIATES Negative Normal < 300 ng/mL [facility] Comment on above: Performed By: #### L 500.4050, L505.5000, L700.6800, L501.9100, L100.0100 ####[facility] [address] [place], [address] OXYCODONE Negative Normal < 100 ng/mL [facility] Comment on above: Performed By: #### L 500.4050, L505.5000, L700.6800, L501.9100, L100.0100 ####[facility] [address] [place], [place], [id number] PCP Negative Normal < 25 ng/mL [facility] Comment on above: Performed By: #### L 500.4050, L505.5000, L700.6800, L501.9100, L100.0100 ####[facility] [address] [place], [place], [id number] THC Positive Normal < 50 ng/mL [facility] Comment on above: Result Comment: If c onfirmation testing is needed, a separate order will be required to send out testing to the reference laboratory. Performed By: #### L 500.4050, L505.5000, L700.6800, L501.9100, L100.0100 ####[facility] [address] [place], [place], [id number] Urine benzodiazepine levelOr dered By: Alok Mccray on 08-22-2024 Benzodiazepines Ql (U) Negative < 200 ng/mL [facility] Urine cocaine levelOrdered B y: Alok Mccray on 08-22-2024 Cocaine Ql (U) Positive < 300 ng/mL [facility] Comment on above: If confirmation test ing is needed, a separate order will be required to send out testing to the reference laboratory. Urine jptfh-8-fgaflnxxgxtlam abinol (THC) measurementOrdered By: Alok Mancini on 08-22-2024 Cannabinoids Screen Ql (U) Positive < 50 ng/mL [facility] Comment on above: If confirmation test ing is needed, a separate order will be required to send out testing to the reference laboratory. Urine phencyclidine (PCP) de tectionOrdered By: Alok Mccray on 08-22-2024 Phencyclidine Ql (U) Negative < 25 ng/mL [facility] .Auto Diffon 04-13-2024 Basophil, Absolute 0.1 10 3/mcL Normal 0.0-0.3 [facility] Comment on above: Performed By: #### D RUGU #### [address] [address] Basophils/100 WBC (Bld) 0.7 % Normal 0.0-2.5 [facility] Comment on above: Performed By: #### D RUGU #### [address] [address] Eosinophil, Absolute 0.5 10 3/mcL Normal 0.0-0.7 [facility] Comment on above: Performed By: #### Alton ABELU #### [address] [address] Eosinophils/100 WBC (Bld) 6.2 % High 0.0-6.0 [facility] Comment on above: Performed By: #### Alton ABELU #### [address] [address] Lymphocyte, Absolute 1.9 10 3/mcL Normal 0.9-4.3 [facility] Comment on above: Performed By: #### Alton ABELU #### [address] [address] Lymphocytes/100 WBC (Bld) 24.5 % Normal 20.0-40.0 [facility] Comment on above: Performed By: #### Alton ABELU #### [address] [address] Monocyte, Absolute 0.8 10 3/mcL Normal 0.1-1.4 [facility] Comment on above: Performed By: #### D RUGU #### [address] [address] Monocytes/100 WBC (Bld) 9.9 % Normal 2.0-13.0 [facility] Comment on above: Performed By: #### D RUGU #### [address] [address] Neutrophils/100 WBC (Bld) 58.7 % Normal 50.0-75.0 [facility] Comment on above: Performed By: #### Alton DEE #### [address] [address] .GFRon 04-13-2024 GFR >60 Normal [facility] Comment on above: Result Comment: GFR Population mean for , Non- Americans Ages 20-29 = 116 mL/min/1.73 sq.m. Ages 30-39 = 107 mL/min/1.73 sq.m. Ages 40-49 = 99 mL/min/1.73 sq.m. Ages 50-59 = 93 mL/min/1.73 sq.m. Ages 60-69 = 85 mL/min/1.73 sq.m. Ages 70+ = 75 mL/min/1.73 sq.m. Chronic Kidney Disease: Less than 60 mL/min/1.73 square meters End Stage Renal Disease: Less than 15 mL/min/1.73 square meters Performed By: #### L AC #### [address] [address] GFR Non- >60 Normal [facility] Comment on above: Result Comment: GFR Population mean for , Non- Americans Ages 20-29 = 116 mL/min/1.73 sq.m. Ages 30-39 = 107 mL/min/1.73 sq.m. Ages 40-49 = 99 mL/min/1.73 sq.m. Ages 50-59 = 93 mL/min/1.73 sq.m. Ages 60-69 = 85 mL/min/1.73 sq.m. Ages 70+ = 75 mL/min/1.73 sq.m. Chronic Kidney Disease: Less than 60 mL/min/1.73 square meters End Stage Renal Disease: Less than 15 mL/min/1.73 square meters Performed By: #### L AC #### [address] [address] .NEUABSon 04-13-2024 Neutrophil, Absolute 4.5 10 3/mcL Normal 2.3-8.1 [facility] Comment on above: Performed By: #### Alton DEE #### [address] [address] BMPon 04-13-2024 BUN/Creatinine Ratio 15.0 ratio Normal 10.0-22.0 [facility] Comment on above: Performed By: #### Alton DEE #### [address] [address] Calcium [Mass/Vol] 8.7 mg/dL Normal 8.7-10.4 [facility] Comment on above: Performed By: #### Alton DEE #### [address] [address] Chloride [Moles/Vol] 105 mmol/L Normal 98-110 [facility] Comment on above: Performed By: #### Alton DEE #### [address] [address] CO2 [Moles/Vol] 27 mmol/L Normal 22-32 [facility] Comment on above: Performed By: #### Alton DEE #### [address] [address] Creatinine [Mass/Vol] 0.60 mg/dL Normal 0.50-1.20 [facility] Comment on above: Result Comment: Test ing performed on [employer] analyzer using enzymatic creatinine methodology. Performed By: #### Alton DEE #### [address] [address] Electrolyte Balance 8.0 mEq/L Normal 4.0-15.0 [facility] Comment on above: Performed By: #### Alton DEE #### [address] [address] Glucose [Mass/Vol] 90 mg/dL Normal 70-110 [facility] Comment on above: Performed By: #### Alton DEE #### [address] [address] Potassium [Moles/Vol] 3.7 mmol/L Normal 3.5-5.0 [facility] Comment on above: Performed By: #### Alton DEE #### [address] [address] Sodium [Moles/Vol] 140 mmol/L Normal 136-145 [facility] Comment on above: Performed By: #### Alton DEE #### [address] [address] Urea nitrogen [Mass/Vol] 9.0 mg/dL Normal 8.0-22.0 [facility] Comment on above: Performed By: #### Alton DEE #### [place] [address] CBCon 04-13-2024 Erythrocyte distribution width (RBC) [Ratio] 14.7 % Normal 11.5-15.5 [facility] Comment on above: Performed By: #### Alton DEE #### [place] [address] Hematocrit (Bld) [Volume fraction] 36.2 % Normal 34.0-46.0 [facility] Comment on above: Performed By: #### Alton DEE #### [place] [address] Hgb 12.3 G/dL Normal 12.0-16.0 [facility] Comment on above: Performed By: #### Alton DEE #### [place] [address] MCH (RBC) [Entitic mass] 28.1 pg Normal 27.0-33.0 [facility] Comment on above: Performed By: #### Alton DEE #### [place] [address] MCHC 34.0 G/dL Normal 32.0-36.0 [facility] Comment on above: Performed By: #### Alton DEE #### [place] [address] MCV (RBC) [Entitic vol] 82.5 fL Normal 80.0-99.0 [facility] Comment on above: Performed By: #### Alton DEE #### [place] [address] Platelet 276 10 3/mcL Normal 150-450 [facility] Comment on above: Performed By: #### Alton DEE #### [place] [id number] Platelet mean volume (Bld) [Entitic vol] 8.7 fL Normal 6.6-10.5 [facility] Comment on above: Performed By: #### Alton DEE #### [address] [address] RBC 4.39 10 6/mcL Normal 4.10-5.30 [facility] Comment on above: Performed By: #### Alton DEE #### [address] [address] WBC 7.7 10 3/mcL Normal 4.5-10.8 [facility] Comment on above: Performed By: #### Alton DEE #### [address] [address] .Auto Diffon 04-12-2024 Basophil, Absolute 0.1 10 3/mcL Normal 0.0-0.3 [facility] Comment on above: Performed By: #### Alton DEE #### [address] [address] Basophils/100 WBC (Bld) 0.5 % Normal 0.0-2.5 [facility] Comment on above: Performed By: #### Alton DEE #### [address] [address] Eosinophil, Absolute 0.2 10 3/mcL Normal 0.0-0.7 [facility] Comment on above: Performed By: #### Alton DEE #### [address] [address] Eosinophils/100 WBC (Bld) 2.0 % Normal 0.0-6.0 [facility] Comment on above: Performed By: #### Alton DEE #### [address] [address] Lymphocyte, Absolute 2.1 10 3/mcL Normal 0.9-4.3 [facility] Comment on above: Performed By: #### Alton DEE #### [address] [address] Lymphocytes/100 WBC (Bld) 18.2 % Low 20.0-40.0 [facility] Comment on above: Performed By: #### Alton DEE #### [address] [address] Monocyte, Absolute 0.8 10 3/mcL Normal 0.1-1.4 [facility] Comment on above: Performed By: #### D PAGEU #### [facility] [address] [place] [address] Monocytes/100 WBC (Bld) 7.2 % Normal 2.0-13.0 [facility] Comment on above: Performed By: #### D PAGEU #### [facility] [address] [place] [address] Neutrophils/100 WBC (Bld) 72.1 % Normal 50.0-75.0 [facility] Comment on above: Performed By: #### D PAGEU #### [address] [address] .GFRon 04-12-2024 GFR >60 [facility] Comment on above: Result Comment: GFR Population mean for , Non- Americans Ages 20-29 = 116 mL/min/1.73 sq.m. Ages 30-39 = 107 mL/min/1.73 sq.m. Ages 40-49 = 99 mL/min/1.73 sq.m. Ages 50-59 = 93 mL/min/1.73 sq.m. Ages 60-69 = 85 mL/min/1.73 sq.m. Ages 70+ = 75 mL/min/1.73 sq.m. Chronic Kidney Disease: Less than 60 mL/min/1.73 square meters End Stage Renal Disease: Less than 15 mL/min/1.73 square meters Performed By: #### D PAGEU #### [address] [address] GFR Non- >60 [facility] Comment on above: Result Comment: GFR Population mean for , Non- Americans Ages 20-29 = 116 mL/min/1.73 sq.m. Ages 30-39 = 107 mL/min/1.73 sq.m. Ages 40-49 = 99 mL/min/1.73 sq.m. Ages 50-59 = 93 mL/min/1.73 sq.m. Ages 60-69 = 85 mL/min/1.73 sq.m. Ages 70+ = 75 mL/min/1.73 sq.m. Chronic Kidney Disease: Less than 60 mL/min/1.73 square meters End Stage Renal Disease: Less than 15 mL/min/1.73 square meters Performed By: #### Alton DEE #### [address] [address] .NEUABSon 04-12-2024 Neutrophil, Absolute 8.2 10 3/mcL High 2.3-8.1 [facility] Comment on above: Performed By: #### Alton DEE #### [address] [address] BMPon 04-12-2024 BUN/Creatinine Ratio 15.4 ratio Normal 10.0-22.0 [facility] Comment on above: Performed By: #### Alton DEE #### [place] [address] Calcium [Mass/Vol] 8.9 mg/dL Normal 8.7-10.4 [facility] Comment on above: Performed By: #### Alton DEE #### [place] [id number] Chloride [Moles/Vol] 107 mmol/L Normal 98-110 [facility] Comment on above: Performed By: #### Alton DEE #### [place] [id number] CO2 [Moles/Vol] 27 mmol/L Normal 22-32 [facility] Comment on above: Performed By: #### Alton DEE #### [place] [address] Creatinine [Mass/Vol] 0.65 mg/dL Normal 0.50-1.20 [facility] Comment on above: Result Comment: Test ing performed on [employer] analyzer using enzymatic creatinine methodology. Performed By: #### Alton DEE #### [place] [id number] Electrolyte Balance 6.0 mEq/L Normal 4.0-15.0 [facility] Comment on above: Performed By: #### Alton DEE #### [place] [id number] Glucose [Mass/Vol] 113 mg/dL High 70-110 [facility] Comment on above: Performed By: #### Alton DEE #### [address] [address] Potassium [Moles/Vol] 4.4 mmol/L Normal 3.5-5.0 [facility] Comment on above: Performed By: #### Alton DEE #### [address] [address] Sodium [Moles/Vol] 140 mmol/L Normal 136-145 [facility] Comment on above: Performed By: #### Alton DEE #### [place] [phone] Urea nitrogen [Mass/Vol] 10.0 mg/dL Normal 8.0-22.0 [facility] Comment on above: Performed By: #### Alton DEE #### [place] [id number] CBCon 04-12-2024 Erythrocyte distribution width (RBC) [Ratio] 15.1 % Normal 11.5-15.5 [facility] Comment on above: Performed By: #### Alotn DEE #### [place] [id number] Hematocrit (Bld) [Volume fraction] 36.4 % Normal 34.0-46.0 [facility] Comment on above: Performed By: #### Alton DEE #### [place] [id number] Hgb 12.2 G/dL Normal 12.0-16.0 [facility] Comment on above: Performed By: #### Alton DEE #### [place] [phone] MCH (RBC) [Entitic mass] 27.7 pg Normal 27.0-33.0 [facility] Comment on above: Performed By: #### Alton DEE #### [place] [id number] MCHC 33.6 G/dL Normal 32.0-36.0 [facility] Comment on above: Performed By: #### Alton DEE #### [place] [id number] MCV (RBC) [Entitic vol] 82.6 fL Normal 80.0-99.0 [facility] Comment on above: Performed By: #### Alton DEE #### [place] [address] Platelet 324 10 3/mcL Normal 150-450 [facility] Comment on above: Performed By: #### Alton DEE #### [place] [address] Platelet mean volume (Bld) [Entitic vol] 8.3 fL Normal 6.6-10.5 [facility] Comment on above: Performed By: #### Alton DEE #### [place] [address] RBC 4.41 10 6/mcL Normal 4.10-5.30 [facility] Comment on above: Performed By: #### Alton DEE #### [place] [address] WBC 11.4 10 3/mcL High 4.5-10.8 [facility] Comment on above: Performed By: #### Alton DEE #### [place] [address] LACon 04-12-2024 Lactic Acid Lvl 2.0 mmol/L Normal 0.5-2.2 [facility] Comment on above: Performed By: #### L AC #### [place] [address] Lactic Acid Lvl 2.5 mmol/L High 0.5-2.2 [facility] Comment on above: Performed By: #### L AC #### [place] [address] .Auto Diffon 04-11-2024 Basophil, Absolute 0.1 10 3/mcL Normal 0.0-0.3 [facility] Comment on above: Performed By: #### Alton CULP #### [place] [address] Basophils/100 WBC (Bld) 0.3 % Normal 0.0-2.5 [facility] Comment on above: Performed By: #### D RUGS #### [address] [address] Eosinophil, Absolute 0.0 10 3/mcL Normal 0.0-0.7 [facility] Comment on above: Performed By: #### D RUGS #### [address] [address] Eosinophils/100 WBC (Bld) 0.1 % Normal 0.0-6.0 [facility] Comment on above: Performed By: #### D RUGS #### [address] [address] Lymphocyte, Absolute 1.0 10 3/mcL Normal 0.9-4.3 [facility] Comment on above: Performed By: #### D RUGS #### [address] [address] Lymphocytes/100 WBC (Bld) 4.5 % Low 20.0-40.0 [facility] Comment on above: Performed By: #### D RUGS #### [address] [address] Monocyte, Absolute 1.1 10 3/mcL Normal 0.1-1.4 [facility] Comment on above: Performed By: #### D RUGS #### [address] [address] Monocytes/100 WBC (Bld) 5.0 % Normal 2.0-13.0 [facility] Comment on above: Performed By: #### D RUGS #### [address] [address] Neutrophils/100 WBC (Bld) 90.1 % High 50.0-75.0 [facility] Comment on above: Performed By: #### D RUGS #### [address] [address] .GFRon 04-11-2024 GFR >60 Normal [facility] Comment on above: Result Comment: GFR Population mean for , Non- Americans Ages 20-29 = 116 mL/min/1.73 sq.m. Ages 30-39 = 107 mL/min/1.73 sq.m. Ages 40-49 = 99 mL/min/1.73 sq.m. Ages 50-59 = 93 mL/min/1.73 sq.m. Ages 60-69 = 85 mL/min/1.73 sq.m. Ages 70+ = 75 mL/min/1.73 sq.m. Chronic Kidney Disease: Less than 60 mL/min/1.73 square meters End Stage Renal Disease: Less than 15 mL/min/1.73 square meters Performed By: #### D RUGS #### [place] [address] GFR Non- >60 [facility] Comment on above: Result Comment: GFR Population mean for , Non- Americans Ages 20-29 = 116 mL/min/1.73 sq.m. Ages 30-39 = 107 mL/min/1.73 sq.m. Ages 40-49 = 99 mL/min/1.73 sq.m. Ages 50-59 = 93 mL/min/1.73 sq.m. Ages 60-69 = 85 mL/min/1.73 sq.m. Ages 70+ = 75 mL/min/1.73 sq.m. Chronic Kidney Disease: Less than 60 mL/min/1.73 square meters End Stage Renal Disease: Less than 15 mL/min/1.73 square meters Performed By: #### D RUGS #### [address] [address] .MDWon 04-11-2024 Monocyte Distribution Width 15.65 Normal 0.00-20.00 [facility] Comment on above: Result Comment: For ED adult patients suspected of sepsis, MDW<=20.0 does not rule out sepsis or risk of sepsis Performed By: #### T SH, CMP, MDW, ADIFF, GFR, MG, TROPHS, MORPH, CBC, ANEU #### [address] [address] .Morphon 04-11-2024 Platelet Estimate Normal [facility] MAIN Comment on above: Performed By: #### D RUGS #### [address] [address] RBC morphology finding Nom (Bld) Normal [facility] MAIN Comment on above: Performed By: #### D RUGS #### [address] [address] .NEUABSon 04-11-2024 Neutrophil, Absolute 20.1 10 3/mcL High 2.3-8.1 A [facility] Comment on above: Performed By: #### D RUGS #### [place] [address] Martha 04-11-2024 Ethanol Level <10.0 Normal [facility] Comment on above: Performed By: #### D RUGS, TROPHS, ALC #### [place] [address] CBCon 04-11-2024 Erythrocyte distribution width (RBC) [Ratio] 14.9 % Normal 11.5-15.5 [facility] Comment on above: Performed By: #### T SH, CMP, MDW, ADIFF, GFR, MG, TROPHS, MORPH, CBC, ANEU #### [place] [address] Hematocrit (Bld) [Volume fraction] 43.3 % Normal 34.0-46.0 [facility] Comment on above: Performed By: #### T SH, CMP, MDW, ADIFF, GFR, MG, TROPHS, MORPH, CBC, ANEU #### [place] [address] Hgb 14.6 G/dL Normal 12.0-16.0 [facility] Comment on above: Performed By: #### T SH, CMP, MDW, ADIFF, GFR, MG, TROPHS, MORPH, CBC, ANEU #### [place] [address] MCH (RBC) [Entitic mass] 27.5 pg Normal 27.0-33.0 [facility] Comment on above: Performed By: #### T SH, CMP, MDW, ADIFF, GFR, MG, TROPHS, MORPH, CBC, ANEU #### [place] [address] MCHC 33.7 G/dL Normal 32.0-36.0 [facility] Comment on above: Performed By: #### T SH, CMP, MDW, ADIFF, GFR, MG, TROPHS, MORPH, CBC, ANEU #### [place] [address] MCV (RBC) [Entitic vol] 81.5 fL Normal 80.0-99.0 [facility] Comment on above: Performed By: #### T SH, CMP, MDW, ADIFF, GFR, MG, TROPHS, MORPH, CBC, ANEU #### [place] [address] Platelet 430 10 3/mcL Normal 150-450 [facility] Comment on above: Performed By: #### T SH, CMP, MDW, ADIFF, GFR, MG, TROPHS, MORPH, CBC, ANEU #### [place] [address] Platelet mean volume (Bld) [Entitic vol] 8.6 fL Normal 6.6-10.5 [facility] Comment on above: Performed By: #### T SH, CMP, MDW, ADIFF, GFR, MG, TROPHS, MORPH, CBC, ANEU #### [place] [address] RBC 5.31 10 6/mcL High 4.10-5.30 [facility] Comment on above: Performed By: #### T SH, CMP, MDW, ADIFF, GFR, MG, TROPHS, MORPH, CBC, ANEU #### [place] [address] WBC 22.3 10 3/mcL High 4.5-10.8 [facility] Comment on above: Performed By: #### T SH, CMP, MDW, ADIFF, GFR, MG, TROPHS, MORPH, CBC, ANEU #### [place] [address] CKon 04-11-2024 CK [Catalytic activity/Vol] 51 U/L Normal 7-185 [facility] Comment on above: Performed By: #### L AC #### [place] [address] CMPon 04-11-2024 Albumin Level 4.1 G/dL Normal 3.2-4.8 [facility] Comment on above: Performed By: #### D RUGS #### [address] [address] Albumin/Globulin [Mass ratio] 0.9 {ratio} Normal 0.9-1.6 [facility] Comment on above: Performed By: #### D RUGS #### [address] [address] ALP [Catalytic activity/Vol] 108 U/L Normal 38-126 [facility] Comment on above: Performed By: #### D RUGS #### [address] [address] ALT [Catalytic activity/Vol] 12 U/L Normal 10-49 [facility] Comment on above: Performed By: #### Alton RUGS #### [address] [address] AST [Catalytic activity/Vol] 17 U/L Normal 8-34 [facility] Comment on above: Performed By: #### Alton RUGS #### [address] [address] Bili Total 0.20 mg/dL Normal 0.20-1.20 [facility] Comment on above: Result Comment: Use of this assay is not recommended for patients undergoing treatment with eltrombopag due to the potential for falsely elevated results. Performed By: #### Alton RUGS #### [address] [address] BUN/Creatinine Ratio 15.5 ratio Normal 10.0-22.0 [facility] Comment on above: Performed By: #### Alton RUGS #### [address] [address] Calcium [Mass/Vol] 10.0 mg/dL Normal 8.7-10.4 [facility] Comment on above: Performed By: #### Alton RUGS #### [address] [address] Chloride [Moles/Vol] 104 mmol/L Normal 98-110 [facility] Comment on above: Performed By: #### Alton RUGS #### [address] [address] CO2 [Moles/Vol] 25 mmol/L Normal 22-32 [facility] Comment on above: Performed By: #### Alton RUGS #### [address] [address] Creatinine [Mass/Vol] 0.84 mg/dL Normal 0.50-1.20 [facility] Comment on above: Result Comment: Test ing performed on [employer] analyzer using enzymatic creatinine methodology. Performed By: #### Alton RUGS #### [address] [address] Electrolyte Balance 14.0 mEq/L Normal 4.0-15.0 [facility] Comment on above: Performed By: #### Alton RUGS #### [address] [address] Globulin 4.5 G/dL High 1.5-3.8 [facility] Comment on above: Performed By: #### Alton RUGS #### [address] [address] Glucose [Mass/Vol] 101 mg/dL Normal 70-110 [facility] Comment on above: Performed By: #### Alton RUGS #### [address] [address] Potassium [Moles/Vol] 4.1 mmol/L Normal 3.5-5.0 [facility] Comment on above: Performed By: #### Alton RUGS #### [address] [address] Sodium [Moles/Vol] 143 mmol/L Normal 136-145 [facility] Comment on above: Performed By: #### D RUGS #### [address] [address] Total Protein 8.6 G/dL High 5.7-8.2 [facility] Comment on above: Performed By: #### D RUGS #### [address] [address] Urea nitrogen [Mass/Vol] 13.0 mg/dL Normal 8.0-22.0 [facility] Comment on above: Performed By: #### Alton CULP #### [place] [address] [address] HEAD OR BRAIN W/O CONTRAS Ton 04-11-2024 CT HEAD OR BRAIN W/O CONTRAST ORIGINAL EXAMINATION: CT OF THE HEAD WITHOUT CONTRAST 04/11/2024 11:00 am TECHNIQUE: CT of the head was performed without the administration of intravenous contrast. Automated exposure control, iterative reconstruction, and/or weight based adjustment of the mA/kV was utilized to reduce the radiation dose to as low as reasonably achievable. COMPARISON: None. HISTORY: ORDERING SYSTEM PROVIDED HISTORY: Reason for Exam: DIZZINESS SPELLS, LOSS OF BALANCE, FALL YESTERDAY AND HIT LEFT EYEBROW, HEADACHE, NO PRIOR NEURO HX Headache FINDINGS: BRAIN/VENTRICLES: There is no acute intracranial hemorrhage, mass effect or midline shift. No abnormal extra-axial fluid collection. The castillo-white differentiation is maintained without evidence of an acute infarct. There is no evidence of hydrocephalus. ORBITS: The visualized portion of the orbits demonstrate no acute abnormality. SINUSES: The visualized paranasal sinuses and mastoid air cells demonstrate no acute abnormality. Fluid, perhaps blood is present in the nasal passages. SOFT TISSUES/SKULL: No acute abnormality of the visualized skull or soft tissues. IMPRESSION: 1. No acute intracranial finding. 2. Fluid or blood in the nasal passages. Interpreted by: Hermes Aguilar Preliminary Report By: Hermes Aguilar Electronically signed By Hermes Aguilar Dictated Date: 04/11/2024 11:06:45 AM Prelim Date: 04/11/2024 11:07:27 AM Sign Date: 04/11/2024 11:07:27 AM Ordering Provider: YUE Sharma [facility] CVFLURVon 04-11-2024 FLU A PCR Negative Normal Negative [facility] Comment on above: Result Comment: [place] [id number] Performed By: #### L AC #### [place] [address] FLU B PCR Negative Normal Negative [facility] Comment on above: Result Comment: [place] [id number] Performed By: #### L AC #### [place] [address] RSV PCR Negative Normal Negative [facility] Comment on above: Result Comment: [place] [id number] Performed By: #### L AC #### [place] [address] SARS-CoV-2 (COVID-19) RNA SAM+probe Ql (Unsp spec) Negative Normal Negative [facility] Comment on above: Result Comment: Note s [id number] This test has been authorized by FDA under an EUA for use by authorized laboratories and has not been FDA cleared or approved. Results from the Xpert Xpress SARS-CoV-2/Flu/RSV or Xpert Xpress SARS-CoV-2 only test should be correlated with the clinical history, epidemiological data, and other data available to the clinician evaluating the patient. Performance of the Xpert Xpress SARS-CoV-2/Flu/RSV or Xpert Xpress SARS-CoV-2 only test has only been established in nasopharyngeal swab specimens. Erroneous test results might occur from improper specimen collection; failure to follow the recommended sample collection, handling, and storage procedures; technical error; or sample mix-up.False negative results may occur if virus is present at levels below the analytical limit of detection. Viral nucleic acid may persist in vivo, independent of virus viability. Detection of analyte target(s) does not imply that the corresponding virus(es) are infectious or are the causative agents for clinical symptoms.Recent patient exposure to FluMist or other live attenuated influenza vaccines may cause inaccurate positive results. Performed By: #### L AC #### [place] [address] DDHSon 04-11-2024 D-Dimer HS <200 Normal 0-230 [facility] Comment on above: Result Comment: DDN: Results reported in D-DU ng/mL. Negative for D-dimer. DVT/PE is highly unlikely. Note: False negative results may be seen in patients on anticoagulant therapy. The result of the D-Dimer test should be evaluated in the context of all the clinical and laboratory data available. In those instances where the laboratory result does not agree with the clinical evaluation, additional tests should be performed accordingly. Performed By: #### D PAGEU #### [place] [address] DRUGSon 04-11-2024 Acetaminophen [Mass/Vol] ug/mL Low 10.0-20.0 [facility] Comment on above: Performed By: #### D RUGS, TROPHS, ALC #### [place] [address] Ethanol Level <10.0 [facility] Comment on above: Performed By: #### D MARGIE CULPS, ALC #### [place] [address] Salicylate Lvl (ds) <3.0 Low 10.0-25.0 [facility] Comment on above: Performed By: #### D RUGSMARGIES, ALC #### [place] [address] Serum Drugs screened: See Below Normal [facility] Comment on above: Result Comment: This drug screen is a presumptive screening only. No confirmation will be performed unless requested. Drugs included in the serum drug screen are: Threshold Ethanol 10.0 mg/dL Salicylate 2.0 mg/dl Acetaminophen 2.0 mcg/mL Testing has been performed FOR MEDICAL PURPOSES ONLY. Performed By: #### D MARGIE CULPS, ALC #### [place] [address] Acetaminophen [Mass/Vol] ug/mL Low 10.0-20.0 [facility] Comment on above: Performed By: #### D RUGS #### [place] [address] Ethanol Level <10.0 [facility] Comment on above: Performed By: #### D RUGS #### [place] [address] Salicylate Lvl (ds) <3.0 Low 10.0-25.0 [facility] Comment on above: Performed By: #### D RUGS #### [place] [address] Serum Drugs screened: See Below [facility] MAIN Comment on above: Result Comment: This drug screen is a presumptive screening only. No confirmation will be performed unless requested. Drugs included in the serum drug screen are: Threshold Ethanol 10.0 mg/dL Salicylate 2.0 mg/dl Acetaminophen 2.0 mcg/mL Testing has been performed FOR MEDICAL PURPOSES ONLY. Performed By: #### D RUGS #### [place] [address] DRUGUon 04-11-2024 Amphetamine (u) Positive Abnormal Negative [facility] Comment on above: Performed By: #### Alton RUGU #### [place] [id number] Barbiturate (u) Negative Normal Negative [facility] Comment on above: Performed By: #### D RUGU #### [place] [address] Benzodiazepine (u) Negative Normal Negative [facility] Comment on above: Performed By: #### Alton RUGU #### [place] [id number] Cannabinoid (u) Negative Normal Negative [facility] Comment on above: Performed By: #### Alton RUGU #### [place] [address] Cocaine Ql (U) Positive Abnormal Negative [facility] Comment on above: Performed By: #### Alton RUGU #### [place] [address] Fentanyl (u) Positive Abnormal Negative [facility] Comment on above: Result Comment: Test ing has been performed FOR MEDICAL PURPOSES ONLY. Performed By: #### Alton RUGU #### [place] [address] Methadone Ql (U) Negative Normal Negative [facility] Comment on above: Performed By: #### Alton RUGU #### [place] [address] Opiate (u) Positive Abnormal Negative [facility] Comment on above: Performed By: #### D RUGU #### [place] [id number] Oxycodone (u) Negative Normal Negative [facility] Comment on above: Result Comment: Test ing has been performed FOR MEDICAL PURPOSES ONLY. Performed By: #### D RUGU #### [place] [id number] PCP (u) Negative Normal Negative [facility] Comment on above: Performed By: #### Alton RUGU #### [address] [address] Propoxyphene (u) Negative Normal Negative [facility] Comment on above: Performed By: #### Alton DEE #### [address] [address] U pH Drug Scrn 6.5 Normal 5.0-8.0 [facility] Comment on above: Performed By: #### Alton DEE #### [address] [address] Urine Drugs screened: See Below Normal [facility] Comment on above: Result Comment: This drug screen is a presumptive screening only. No confirmation will be performed unless requested. Drugs screened include: Threshold Amphetamines/Methamphetamines 1,000 ng/mL Barbiturates 200 ng/mL Benzodiazepine metabolites 200 ng/mL Cannabinoids (THC metabolites) 50 ng/mL Benzoylecognine (Cocaine metab) 300 ng/mL Opiates 300 ng/mL Phencyclidine (PCP) 25 ng/mL Methadone 300 ng/mL Propoxyphene 300 ng/mL Fentanyl 1.0 ng/mL Oxycodone 100 ng/mL Testing has been performed FOR MEDICAL PURPOSES ONLY. Performed By: #### Alton DEE #### [place] [address] LACon 04-11-2024 Lactic Acid Lvl 3.4 mmol/L High 0.5-2.2 [facility] Comment on above: Performed By: #### L AC #### [place] [id number] Lactic Acid Lvl 3.7 mmol/L High 0.5-2.2 [facility] Comment on above: Order Comment: Order ed secondary to Lactic Acid result greater than or equal to 2.0 Performed By: #### L AC #### [place] [address] Lactic Acid Lvl 3.8 mmol/L High 0.5-2.2 [facility] Comment on above: Performed By: #### L AC #### [place] [address] MGon 04-11-2024 Magnesium [Mass/Vol] 1.8 mg/dL Normal 1.6-2.4 [facility] Comment on above: Performed By: #### D RUGS #### [address] 04-11-2024 High Sensitivity Troponin I 94 ng/L High [address] [place] [address] MAIN Comment on above: Result Comment: High Sensitive Troponin I Reference Ranges: Female: 0-34 ng/L Male: 0-54 ng/L Testing performed on [employer] IM analyzer using direct chemiluminescent technology. Performed By: #### D CHEN CULP, ALC #### [place] [address] High Sensitivity Troponin I 99 ng/L High [address] [place] [address] MAIN Comment on above: Result Comment: High Sensitive Troponin I Reference Ranges: Female: 0-34 ng/L Male: 0-54 ng/L Testing performed on [employer] IM analyzer using direct chemiluminescent technology. Performed By: #### Alton RUGS #### [place] [address] High Sensitivity Troponin I 59 ng/L High [address] [place] [address] MAIN Comment on above: Result Comment: High Sensitive Troponin I Reference Ranges: Female: 0-34 ng/L Male: 0-54 ng/L Testing performed on [facility] IM analyzer using direct chemiluminescent technology. Performed By: #### Alton RUGS #### [place] [address] TSHon 04-11-2024 TSH 1.358 mIU/mL Normal 0.550-4.780 [facility] Comment on above: Performed By: #### Alton RUGS #### [place] [id number] UAon 04-11-2024 Color (U) Yellow Normal [facility] Comment on above: Performed By: #### Alton RUGS #### [place] [id number] Glucose (U) [Mass/Vol] Negative Normal Negative [facility] Comment on above: Performed By: #### Alton RUGS #### [place] [id number] Ketones Ql (U) Negative Normal Neg-Trace [facility] Comment on above: Performed By: #### D RUGS #### [facility] [address] [place] [address] UA Appear Clear Normal Clear [facility] Comment on above: Performed By: #### D RUGS #### [facility] [address] [place], [place] [id number] UA Blood Negative Normal Neg-Trace [facility] Comment on above: Performed By: #### Alton RUGS #### [place] [address] UA Leuk Est Negative Normal Negative [facility] Comment on above: Performed By: #### Alton RUGS #### [place] [address] UA Nitrite Negative Normal Negative [facility] Comment on above: Performed By: #### D RUGS #### [place] [address] UA pH 7.0 Normal 5.0 - 8.0 [facility] Comment on above: Performed By: #### Alton RUGS #### [place] [address] UA Protein Trace Normal Negative [facility] Comment on above: Performed By: #### Alton RUGS #### [place] [address] UA Spec Grav 1.015 Normal 1.006-1.029 [facility] Comment on above: Performed By: #### Alton RUGS #### [place] [address] UA Specimen Type Clean Catch Normal [facility] Comment on above: Performed By: #### D RUGS #### [place] [address] UA Urobilinogen 0.2 E.U./dL Normal 0.2-1.0 [facility] Comment on above: Performed By: #### D RUGS #### [place] [address] Urobilinogen (U) [Mass/Vol] Negative Normal Neg-Trace [facility] Comment on above: Performed By: #### Alton RUGS #### [facility] [address] [place] [id number] XR CHEST 2 VIEWSon XR CHEST 2 VIEWS ORIGINAL EXAMINATION: TWO XRAY VIEWS OF THE CHEST 04/11/2024 10:20 am COMPARISON: None. HISTORY: ORDERING SYSTEM PROVIDED HISTORY: Reason for Exam: pain FINDINGS: Cardiomediastinal silhouette is within normal limits. There is no overt edema. No focal consolidation. Costophrenic angles are sharp. No pneumothorax. No acute osseous abnormality. IMPRESSION: No acute cardiopulmonary process. Interpreted by: Nat Rojas Preliminary Report By: Nat Rojas Electronically signed By Nat Rojas Dictated Date: 04/11/2024 10:24:53 AM Prelim Date: 04/11/2024 10:25:48 AM Sign Date: 04/11/2024 10:25:48 AM Ordering Provider: YUE BARDALES [facility] Chest PA and Lateralon 12-19 Chest PA and Lateral [facility] Imaging Services [address] [place] [address] [id number] Chest PA and Lateral MR#: [id number] Acct: [id number] Name: JOHN MURCIA Rep #: [id number] : 1985 F 38 From: Callie Dang PCP: Care Physician,No Primary Status: REG ER Study: Chest PA and Lateral Date of Exam: 12/20/23 Exam# [id number] Ordering [place]: [place] [id number] INDICATION: COUGH EXAMINATION/TECHNIQUE: X-RAY - XR Chest 2 Views COMPARISON: Prior study dated: 05/22/2012. FINDINGS: LINES/DEVICES: None. LUNGS: No consolidation. No pneumothorax. MEDIASTINUM: Unremarkable. CARDIAC SILHOUETTE: Not enlarged. BONES AND SOFT TISSUES: No acute abnormalities. RAD/Chest PA and Lateral IMPRESSION: No evidence of active intrathoracic disease. Electronically Signed: Callie Valdivia MD at 22:19 EDT , CC: Dr. Hermes Walls, ; No Primary Care Physician Quality Assurance Qa Lab Analyst: Signed Normal [facility] Emergency Department Summary on 12-20-2023 Emergency Department Summary [facility] Medical Records Department [address] [place] [address] Emergency Department Summary 12/20/23 MR#: [id number] Acct: [id number] Name: JOHN MURCIA Rep #: [id number] : 1985 38 From: Hermes Walls DO PCP: Care Physician,No Primary Status:DEP ER Location: ED HPI History of Present Illness Chief Complaint: Shortness of Breath Informant: patient Onset/Context/Timing Onset: Yesterday Context: gradual Timing: Continuous Quality: Positive for Dyspnea on exertion Worsened by: Exertion Relieved by: Nothing Associated Symptoms Negative for cough, rhinorrhea, post nasal drip, ear pain, fever, sore throat, chills, clear sputum, white sputum, yellow sputum or green sputum Chest Pain: Positive for None Narrative Narrative: Patient presents with shortness of breath that began yesterday. Patient states it is gradually gotten worse. Patient states the pain is constant. Patient describes it as a tightness. Patient states her breathing is worse with any exertion. Patient states nothing seems to help with it. Patient denies any cough. Patient denies any sore throat or rhinorrhea. Patient denies any fevers or chills. Patient denies any chest pain. Patient denies any cardiac or PE risk factors. PE Risk Factors: Negative for Cancer, OCP + Smoking + > 35, Prior DVT or PE, Recent immobilization, Recent surgery or Recent travel [facility] Medical History Opiate abuse, continuous Finger fracture Opioid abuse Hx MRSA infection Methamphetamine abuse Heroin abuse Home Medications ???Medication ???Instructions ???Recorded ???Last Taken ???Type albuterol sulfate 90 mcg/actuation 1 - 2 puff inhalation Q4H PRN PRN 12/20/23 Unknown Rx aerosol inhaler (Ventolin HFA) Wheezing ##1 Allergy/AdvReac Type Severity Reaction Status Date / Time No Known Allergies Allergy Verified 12/20/23 20:01 Family History Other No pertinent family history Surgical History IUD (intrauterine device) in place Social History household members: family current occupational status: employed 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 Smoking Status: Heavy Smoker (>10/day) Electronic Cigarette Use: not used alcohol intake: former year quit: 2007 details: never a heavy drinker substance use type: opiates do you feel safe at home: Yes ROS ROS ED Constitutional Constitutional ED: Denies chills or fever(s) Eyes Eyes: Reports blurry vision; Denies diplopia ENT ENT ED: Denies rhinorrhea or sore throat Cardiovascular Cardiovascular: Denies chest pain or palpitations Respiratory/Chest Respiratory/Chest: Reports dyspnea; Denies cough Gastrointestinal Gastrointestinal: Denies nausea or vomiting Genitourinary Genitourinary ED: Denies dysuria or hematuria Musculoskeletal Musculoskeletal: Reports neck pain; Denies back pain Integumentary Denies abscess or rash Neurologic Neurologic: Denies headache(s) or weakness Allergic/Immunologic Allergic/Immunologic ED: Denies mouth swelling or urticaria EXAM Physical Exam Const Vital Signs: 12/20/23 20:01 12/20/23 20:17 12/20/23 20:42 Temperature 98.9 F Temperature Source Oral Pulse Rate 115 H 95 Respiratory Rate 18 18 Respiratory Effort Non-Labored Short of Breath Respiratory Depth Normal Respiratory Pattern Normal Blood Pressure 148/111 H Blood Pressure Mean 123 Pulse Ox 97 Oxygen Delivery Method Room Air 12/20/23 21:00 12/20/23 22:00 Temperature Temperature Source Pulse Rate 95 Respiratory Rate Respiratory Effort Respiratory Depth Respiratory Pattern Blood Pressure 136/72 H 146/77 H Blood Pressure Mean 93 100 Pulse Ox 95 94 Oxygen Delivery Method Room Air Room Air Positive well nourished and well developed General Appearance ED: well developed and NAD HEENT Reports moist mucous membranes Neck supple and no JVD Resp normal respiratory effort Auscultation: wheezes expiratory wheezes and throughout Cardio regular rhythm Rate: tachycardic GI non-tender and non-distended Palpation: soft Neuro oriented x3, CN's II-XII intact bilaterally and no sensory deficits noted Palma Coma Scale: document GCS findings Spontaneous Obeys Commands Oriented 15 Sensorium / Orientation: alert Speech: speech normal Motor Exam: strength 5/5 throughout Psych mental status grossly normal MDM MDM MDM Narrative Medical decision making narrative: Differential diagnosis includes COPD exacerbation, reactive airway disease, pneumonia, viral infection, an (more content not included)... Normal [facility] M100.678on 12-20-2023 M100.678 Pending SARS-CoV-2 (COVID 19) Negative INFLUENZA A Negative INFLUENZA B Negative RSV PCR Negative Normal [facility] Comment on above: Performed By: #### M 100.678 #### [facility] [address] [place] [address] [place], [address] Basophil percentageOrdered B y: Dr. Osullivan on 09-06-2022 Basophil percentage 3.1 mg/dL 2.5-4.9 [facility] Chloride [Moles/Vol] 109 mmol/L 98-107 [facility] Glucose [Mass/Vol] 100 mg/dL 74-106 [facility] Comment on above: Fasting Glucose resu lt from 100 to 125 mg/dL suggests IMPAIRED HOMEOSTASIS per A.D.A. criteria. Potassium [Moles/Vol] 4.4 mmol/L 3.5-5.1 [facility] Sodium [Moles/Vol] 139 mmol/L 136-145 [facility] - Chemistry and C hemistry - challengeOrdered By: Dr. Osullivan on 09-06-2022 CO2 [Moles/Vol] 26.0 mmol/L 21.0-32.0 [facility] Magnesium [Mass/Vol] 2.4 mg/dL 1.6-2.6 [facility] Urea nitrogen/Creatinine [Mass ratio] 13.8 mg/mg 10-20 [facility] No Panel InformationOrdered By: Dr. Osullivan on 09-06-2022 Estimated Creatinine Clearance Calc 95.87 ml/min [facility] Estimated GFR (MDRD) Amer 116 mL/min >60 [facility] Comment on above: GFR Calc Estimated GFR (MDRD) Non-Af Amer 96 mL/min >60 [facility] Comment on above: Non- GFR Calc Serum or plasma calcium latoya urement (mass/volume)Ordered By: Dr. Osullivan on 09-06-2022 Calcium [Mass/Vol] 8.8 mg/dL 8.5-10.1 [facility] Serum or plasma creatinine m easurement (mass/volume)Ordered By: Dr. Osullivan on 09-06-2022 Creatinine [Mass/Vol] 0.73 mg/dL 0.55-1.02 [facility] Comment on above: The validity of the calculated GFR & GFRAA in patients over 70 years has not been determined. Clinical correlation is essential. Serum or plasma urea nitroge n measurement (mass/volume)Ordered By: Dr. Osullivan on 09-06-2022 Urea nitrogen [Mass/Vol] 10 mg/dL 7- [facility] Thin prep Papanicolaou smear with manual screeningOrdered By: Dr. Osullivan on 09-06-2022 Thin prep Papanicolaou smear with manual screening 4 - [facility] Absolute lymphocyte countOrd ered By: Kristine Uriostegui on 09-05-2022 Lymphocytes Auto (Unsp spec) [#/Vol] 2.18 10*3/uL 0.83-4.51 [facility] Basophil percentageOrdered B y: Kristine Uriostegui on 09-05-2022 Basophils/100 WBC (Bld) 0.9 % 0-1 [facility] Bilirubin [Mass/Vol] 0.30 mg/dL 0.20-1.00 [facility] Comment on above: For patients on eltr ombopag therapy, use of Dimension Delta TBIL is not recommended. Chloride [Moles/Vol] 104 mmol/L 98-107 [facility] Eosinophils/100 WBC (Bld) 7.1 % 0-5 [facility] Glucose [Mass/Vol] 104 mg/dL 74-106 [facility] Comment on above: Fasting Glucose resu lt from 100 to 125 mg/dL suggests IMPAIRED HOMEOSTASIS per A.D.A. criteria. Neutrophils (Bld) [#/Vol] 4.2 10*3/uL 2.0-7.7 [facility] Neutrophils/100 WBC (Bld) 54.7 % 47-70 [facility] Potassium [Moles/Vol] 3.4 mmol/L 3.5-5.1 [facility] Protein [Mass/Vol] 7.2 g/dL 6.4-8.2 [facility] Sodium [Moles/Vol] 139 mmol/L 136-145 [facility] WBC (Bld) [#/Vol] 7.7 10*3/uL 4.4-11.0 [facility] Blood erythrocytes count (nu mber/volume)Ordered By: Kristine Uriostegui on 09-05-2022 RBC (Bld) [#/Vol] 4.45 10*6/uL 4.2-5.4 [facility] Blood hemoglobin measurement (mass/volume)Ordered By: Kristine Uriostegui on 09-05-2022 Hemoglobin (Bld) [Mass/Vol] 12.7 g/dL 12.0-15.0 [facility] Blood lymphocytes/100 leukoc ytesOrdered By: Kristine Uriostegui on 09-05-2022 Lymphocytes/100 WBC (Bld) 28.2 % 19-41 [facility] Blood monocytes/100 leukocyt esOrdered By: Kristine Uriostegui on 09-05-2022 Monocytes/100 WBC (Bld) 8.8 % 0-10 [facility] Blood platelet mean volumeOr dered By: Kristine Uriostegui on 09-05-2022 Platelet mean volume (Bld) [Entitic vol] 10.5 fL 6.2-12.0 [facility] Determination of erythrocyte mean corpuscular volume (MCV)Ordered By: Kristine Uriostegui on 09-05-2022 MCV (RBC) [Entitic vol] 85.2 fL 81-99 [facility] Hematocrit Auto (Bld) [Volum e fraction]Ordered By: Kristine Uriostegui on 09-05-2022 Hematocrit (Bld) [Volume fraction] 37.9 % 37-47 [facility] - Chemistry and C hemistry - challengeOrdered By: Kristine Uriostegui on 09-05-2022 HCG ( test) Ql (U) Negative [facility] Comment on above: Very dilute urine sp ecimens, as indicated by a low specificgravity, may not contain office machines sales representative levels of hCG. If is still suspected, a first morning urinespecimen should be collected 48 hours later and tested. ALP [Catalytic activity/Vol] 64 U/L 45-117 [facility] ALT [Catalytic activity/Vol] 13 U/L 13-56 [facility] CO2 [Moles/Vol] 28.0 mmol/L 21.0-32.0 [facility] Globulin (S) [Mass/Vol] 3.7 g/dL 2.2-4.2 [facility] Urea nitrogen/Creatinine [Mass ratio] 17.3 mg/mg 10-20 [facility] - Drug toxicology Ordered By: Kristine Uriostegui on 09-05-2022 Amphetamines Ql (U) Positive <1000 ng/mL [facility] Benzodiazepines Ql (U) Negative < 200 ng/mL [facility] Cannabinoids Screen Ql (U) Positive < 50 ng/mL [facility] Cocaine Ql (U) Negative < 300 ng/mL [facility] Opiates Ql (U) Negative < 300 ng/mL [facility] - Hematology and Cell countsOrdered By: Kristine Uriostegui on 09-05-2022 Erythrocyte distribution width (RBC) [Entitic vol] 39.1 fL 35.1-43.9 [facility] Erythrocyte distribution width (RBC) [Ratio] 12.6 % 11.6-14.6 [facility] Immature granulocytes/100 WBC (Bld) 0.300 % 0.0-0.9 [facility] Comment on above: IG% - Immature Granu locytes (promyelocytes, myelocytes and metamyelocytes) > 1% indicates that a LEFT SHIFT is Present. MCH (RBC) [Entitic mass] 28.5 pg 27.0-32.0 [facility] Nucleated RBC/100 WBC (Bld) [Ratio] 0 % 0-5 [facility] MCHC Auto (RBC) [Mass/Vol]Or dered By: Kristine Uriostegui on 09-05-2022 MCHC (RBC) [Mass/Vol] 33.5 g/dL 32-36 [facility] No Panel InformationOrdered By: Kristine Uriostegui on 09-05-2022 MDMA (Ecstasy) Screen Positive < 500 ng/mL [facility] Urine Barbiturates Screen Negative < 200 ng/mL [facility] Urine Drug Screen Comment [facility] Comment on above: CONFIRMATORY TESTING FOR ALL POSITIVE URINE DRUG SCREENRESULTS WILL ONLY BE SENT OUT UPON PHYSICIAN ORDER. VISTA Urine Drug Screen methods provide only preliminaryanalytical test results. A more specific alternate chemicalmethod must be used in order to obtain a confirmedanalytical result. Gas chromatography/mass spectrometery(GC/MS) is the preferred confirmatory method. Clinicalconsideration and professional judgement should be appliedto any drug of abuse test result, particularly whenpreliminary positive results are used. URINE TCA TESTING MUST BE ORDERED SEPARATELY. USE TESTMNEMONIC: [facility] Urine Methadone Screen Negative < 300 ng/mL [facility] Estimated Creatinine Clearance Calc 93.31 ml/min [facility] Estimated GFR (MDRD) Amer 112 mL/min >60 [facility] Comment on above: GFR Calc Estimated GFR (MDRD) Non-Af Amer 92 mL/min >60 [facility] Comment on above: Non- GFR Calc Platelets bldOrdered By: Harjinder Uriostegui on 09-05-2022 Platelets (Bld) [#/Vol] 282 10*3/uL 150-450 [facility] Serum or plasma albumin latoya urement (mass/volume)Ordered By: Kristine Uriostegui on 09-05-2022 Albumin [Mass/Vol] 3.5 g/dL 3.2-5.0 [facility] Serum or plasma albumin/glob ulin mass ratioOrdered By: Kristine Uriostegui on 09-05-2022 Albumin/Globulin [Mass ratio] 0.9 {ratio} 0.9-2.4 [facility] Serum or plasma calcium latoya urement (mass/volume)Ordered By: Kristine Uriostegui on 09-05-2022 Calcium [Mass/Vol] 8.7 mg/dL 8.5-10.1 [facility] Serum or plasma creatinine m easurement (mass/volume)Ordered By: Kristine Uriostegui on 09-05-2022 Creatinine [Mass/Vol] 0.75 mg/dL 0.55-1.02 [facility] Comment on above: The validity of the calculated GFR & GFRAA in patients over 70 years has not been determined. Clinical correlation is essential. Serum or plasma urea nitroge n measurement (mass/volume)Ordered By: Kristine Uriostegui on 09-05-2022 Urea nitrogen [Mass/Vol] 13 mg/dL 7-18 [facility] Thin prep Papanicolaou smear with manual screeningOrdered By: Kristine Uriostegui on 09-05-2022 Thin prep Papanicolaou smear with manual screening 11 U/L 15-37 [facility] Thin prep Papanicolaou smear with manual screening 7 5-15 [facility] Urine phencyclidine (PCP) de tectionOrdered By: Kristine Uriostegui on 09-05-2022 Phencyclidine Ql (U) Negative < 25 ng/mL [facility] Absolute lymphocyte counton 05-09-2021 Lymphocytes Auto (Unsp spec) [#/Vol] 1.31 10*3/uL 0.83-4.51 [facility] Work Phone: Basophil percentageon 2021 Basophil percentage TNP [facility] Work Phone: Comment on above: Test not performed Basophils/100 WBC (Bld) 0.5 % 0-1 [facility] Work Phone: Bilirubin [Mass/Vol] 0.20 mg/dL 0.20-1.00 [facility] Work Phone: Comment on above: For patients on eltr ombopag therapy, use of Dimension Delta TBIL is not recommended. Chloride [Moles/Vol] 102 mmol/L 98-107 [facility] Work Phone: Eosinophils/100 WBC (Bld) 0.5 % 0-5 [facility] Work Phone: Glucose [Mass/Vol] 112 mg/dL 74-106 [facility] Work Phone: Comment on above: Fasting Glucose resu lt from 100 to 125 mg/dL suggests IMPAIRED HOMEOSTASIS per A.D.A. criteria. Neutrophils (Bld) [#/Vol] 7.6 10*3/uL 2.0-7.7 [facility] Work Phone: Neutrophils/100 WBC (Bld) 78.6 % 47-70 [facility] Work Phone: Potassium [Moles/Vol] 3.8 mmol/L 3.5-5.1 [facility] Work Phone: [phone] Protein [Mass/Vol] 8.1 g/dL 6.4-8.2 [facility] Work Phone: Sodium [Moles/Vol] 136 mmol/L 136-145 [facility] Work Phone: WBC (Bld) [#/Vol] 9.6 10*3/uL 4.4-11.0 [facility] Work Phone: Blood erythrocytes count (nu mber/volume)on 05-09-2021 RBC (Bld) [#/Vol] 4.90 10*6/uL 4.2-5.4 [facility] Work Phone: Blood hemoglobin measurement (mass/volume)on 05-09-2021 Hemoglobin (Bld) [Mass/Vol] 13.6 g/dL 12.0-15.0 [facility] Work Phone: Blood lymphocytes/100 leukoc yteson 05-09-2021 Lymphocytes/100 WBC (Bld) 13.6 % 19-41 [facility] Work Phone: Blood monocytes/100 leukocyt eson 05-09-2021 Monocytes/100 WBC (Bld) 6.4 % 0-10 [facility] Work Phone: Blood platelet mean volumeon 05-09-2021 Platelet mean volume (Bld) [Entitic vol] 10.8 fL 6.2-12.0 [facility] Work Phone: Determination of erythrocyte mean corpuscular volume (MCV)on 05-09-2021 MCV (RBC) [Entitic vol] 82.0 fL 81-99 [facility] Work Phone: Hematocrit Auto (Bld) [Volum e fraction]on 05-09-2021 Hematocrit (Bld) [Volume fraction] 40.2 % 37-47 [facility] Work Phone: Laboratory - Chemistry and C hemistry - challengeon 05-09-2021 ALP [Catalytic activity/Vol] 74 U/L 45-117 [facility] Work Phone: ALT [Catalytic activity/Vol] 19 U/L 13-56 [facility] Work Phone: CO2 [Moles/Vol] 28.0 mmol/L 21.0-32.0 [facility] Work Phone: Globulin (S) [Mass/Vol] 4.2 g/dL 2.2-4.2 [facility] Work Phone: HCG ( test) Ql (U) Negative [facility] Work Phone: Comment on above: Very dilute urine sp ecimens, as indicated by a low specificgravity, may not contain office machines sales representative levels of hCG. If is still suspected, a first morning urinespecimen should be collected 48 hours later and tested. Urea nitrogen/Creatinine [Mass ratio] 18.1 mg/mg 10-20 [facility] Work Phone: Laboratory - Hematology and Cell countson 05-09-2021 Erythrocyte distribution width (RBC) [Entitic vol] 38.0 fL 35.1-43.9 [facility] Work Phone: Erythrocyte distribution width (RBC) [Ratio] 12.6 % 11.6-14.6 [facility] Work Phone: Immature granulocytes/100 WBC (Bld) 0.400 % 0.0-0.9 [facility] Work Phone: Comment on above: IG% - Immature Granu locytes (promyelocytes, myelocytes and metamyelocytes) > 1% indicates that a LEFT SHIFT is Present. MCH (RBC) [Entitic mass] 27.8 pg 27.0-32.0 [facility] Work Phone: Nucleated RBC/100 WBC (Bld) [Ratio] 0 % 0-5 [facility] Work Phone: MCHC Auto (RBC) [Mass/Vol]on 05-09-2021 MCHC (RBC) [Mass/Vol] 33.8 g/dL 32-36 [facility] Work Phone: No Panel Informationon 05-09 Addendum Document Comment [facility] Work Phone: Comment on above: The quantitative ran ge of this assay is 15 IU/mL to 100million IU/mL. Estimated GFR (MDRD) Amer 100 mL/min >60 [facility] Work Phone: Comment on above: GFR Calc Estimated GFR (MDRD) Non-Af Amer 83 mL/min >60 [facility] Work Phone: Comment on above: Non- GFR Calc Hepatitis B Surface Antigen Non-Reactive Nonreactive [facility] Work Phone: Hepatitis C Antibody Non-Reactive Nonreactive [facility] Work Phone: Comment on above: Non Reactive: < 0.8 Equivocal: >/= 0.8 to < 1.0 Reactive: >/= 1.0The CDC recommends that a reactive/equivocal HCV antibody result be followed up by the HCV Nucleic Acid Amplificationtest (303702) Miscellaneous Test See comment [facility] Work Phone: Comment on above: TEST RESULT UNITS RE F INTERVALRPR Non Reactive Non Reactive ___ TESTING PERFORMED AT [facility]. ORIGINAL REPORT ON FILE IN LAB CONTAINS ADDITIONAL TEST SITE INFORMATION. Platelets bldon 05-09-2021 Platelets (Bld) [#/Vol] 295 10*3/uL 150-450 [facility] Work Phone: Serum hepatitis B virus core antibody detectionon 05-09-2021 HBV core Ab Ql (S) Negative Negative [facility] Work Phone: Comment on above: Performed at: - [address] [id number] Director: Jessica Kendrick MD, Phone: [phone] at: [facility] [id number] Director: Guillermo Engel PhD, Phone: [phone] Serum hepatitis B virus surf shakeel antibody IgG detectionon 05-09-2021 HBV surface IgG Ql (S) Non-Reactive [facility] Work Phone: Comment on above: Non Reactive: Incons istent with immunity less than <10 mIU/mL Reactive: Consistent with immunity greater than or equal to 10 mIU/mL Serum or plasma albumin latoya urement (mass/volume)on 05-09-2021 Albumin [Mass/Vol] 3.9 g/dL 3.2-5.0 [facility] Work Phone: Serum or plasma albumin/glob ulin mass ratioon 05-09-2021 Albumin/Globulin [Mass ratio] 0.9 {ratio} 0.9-2.4 [facility] Work Phone: Serum or plasma calcium latoya urement (mass/volume)on 05-09-2021 Calcium [Mass/Vol] 8.7 mg/dL 8.5-10.1 [facility] Work Phone: Serum or plasma creatinine m easurement (mass/volume)on 05-09-2021 Creatinine [Mass/Vol] 0.83 mg/dL 0.55-1.02 [facility] Work Phone: Comment on above: The validity of the calculated GFR & GFRAA in patients over 70 years has not been determined. Clinical correlation is essential. Serum or plasma hepatitis C virus RNA measurement by probe and target amplification mon 05-09-2021 HCV RNA SAM+probe Qn Not detected [facility] Work Phone: Serum or plasma urea nitroge n measurement (mass/volume)on 05-09-2021 Urea nitrogen [Mass/Vol] 15 mg/dL 7-18 [facility] Work Phone: Thin prep Papanicolaou smear with manual screeningon 05-09-2021 Thin prep Papanicolaou smear with manual screening 14 U/L 15-37 [facility] Work Phone: Thin prep Papanicolaou smear with manual screening 6 5-15 [facility] Work Phone: HCV RNA,Quant,PCRon 04-15-19 20 HCV RNA,Quant,PCR Specimen Description .PLASMA Special Requests NOT REPORTED Direct Exam HCV RNA NOT DETECTED This test is a sensitive method for quantitating HCV RNA viral loads in plasma. It utilizes RT-PCR in the FDA approved [employer] Ampliprep/Taqman 48 System. This test is intended for detecting and quantifying HCV RNA viral loads in the range of 15 IU/mL to 100,000,000 IU/mL (1.18 log IU/mL to 8.00 log IU/mL). Patients should have confirmed HCV infection prior to RNA quantification. This test has been developed to monitor disease progression and efficacy of anti-HCV drug therapy. This test has been optimized for HCV genotypes 1-6. Report Status FINAL 04/15/2019 Normal [facility] Comment on above: Performed By: #### H CVQ #### [facility] [address] [place] [phone] Buckle Sorter: Hitesh Alcala MD HCG, Quanton 04-13-2019 HCG, Quant <1 Normal <5 [facility] Comment on above: Result Comment: Non-preg premeno <=5 Postmeno <=8 Male <=3 If HCG results do not concur with clinical observations, additional testing to confirm results is recommended. Elevated results not associated with may be found in patients with other diseases such as tumors of the germ cells (testis, ovaries, etc.), bladder, pancreas, stomach, lungs, and liver. Performed By: #### B HCG, AHAVT, AHCV, HBS, LIVP, TREP #### [employer] [address] [place] [address] [phone] Buckle Sorter: Hitesh Alcala MD HCG, Quantitative, Ordered By: Unknown Result on 04-13-2019 hCG Quant <1 <5 IU/L [facility] [employer] Phone: Comment on above: Non-preg premeno <=5 Postmeno <=8 Male <=3 If HCG results do not concur with clinical observations, additional testing to confirm results is recommended. Elevated results not associated with may be found in patients with other diseases such as tumors of the germ cells (testis, ovaries, etc.), bladder, pancreas, stomach, lungs, and liver. Hep A Abon 04-13-2019 Hep A Ab,Total NONREACTIVE Normal [facility] Comment on above: Performed By: #### B HCG, AHAVT, AHCV, HBS, LIVP, TREP #### [employer] [address] [place] [address] [phone] Buckle Sorter: Hitesh Alcala MD Hep B Surf Agon 04-13-2019 Hep B Surf Ag NONREACTIVE Normal [facility] Comment on above: Performed By: #### B HCG, AHAVT, AHCV, HBS, LIVP, TREP #### [employer] [address] [place] [address] [phone] Buckle Sorter: Hitesh Alcala MD Hep C Abon 04-13-2019 Hep C Ab NONREACTIVE Normal [facility] Comment on above: Result Comment: The hepatitis C procedure used in our laboratory is a Chemiluminescent test specific for three recombinant HCV antigens. A negative anti-HCV result indicates that the antibodies to hepatitis C virus are not present at this time. Individuals with reactive anti-HCV should be considered infected and infectious until proven otherwise. Confirmation of all equivocal or reactive results is recommended by ordering HCV RNA by PCR. Performed By: #### B HCG, AHAVT, AHCV, HBS, LIVP, TREP #### [employer] [address] [place] [phone] Buckle Sorter: Hitesh Alcala MD Hepatic Function PanelOrdere d By: Unknown Result on 04-13-2019 Albumin [Mass/Vol] 4.3 g/dL 3.5 - 5.2 g/dL [employer] Phone: Albumin/Globulin [Mass ratio] 1.6 {ratio} [employer] Phone: ALP [Catalytic activity/Vol] 68 U/L 35 - 104 U/L [employer] Phone: ALT [Catalytic activity/Vol] 10 U/L 5 - 33 U/L [employer] Phone: AST [Catalytic activity/Vol] 14 U/L <32 [employer] Phone: Bilirubin [Mass/Vol] 0.40 mg/dL 0.3 - 1 .2 mg/dL [employer] Phone: Bilirubin, Indirect 0.28 mg/dL 0 - 1 mg/dL [employer] Phone: Bilirubin.indirect [Mass/Vol] 0.12 mg/dL <0.31 [employer] Phone: Globulin NOT REPORTED 1.5 - 3.8 g/dL [employer] Phone: Protein [Mass/Vol] 7.0 g/dL 6.4 - 8.3 g/dL [employer] Phone: Hepatitis A Antibody, TotalO rdered By: Unknown Result on 04-13-2019 HAV Ab IA Qn Non-Reactive NONREACTIVE [employer] Phone: Hepatitis B Surface AntigenO rdered By: Unknown Result on 04-13-2019 Hepatitis B Surface Ag Non-Reactive NONREACTIVE [employer] Phone: Hepatitis C AntibodyOrdered By: Unknown Result on 04-13-2019 Hepatitis C Ab Non-Reactive NONREACTIVE [employer] Phone: Comment on above: The hepatitis C procedure used in our laboratory is a Chemiluminescent test specific for three recombinant HCV antigens. A negative anti-HCV result indicates that the antibodies to hepatitis C virus are not present at this time. Individuals with reactive anti-HCV should be considered infected and infectious until proven otherwise. Confirmation of all equivocal or reactive results is recommended by ordering HCV RNA by PCR. Liver Profileon 04-13-2019 Albumin [Mass/Vol] 4.3 g/dL Normal 3.5-5.2 [facility] Comment on above: Performed By: #### B HCG, AHAVT, AHCV, HBS, LIVP, TREP #### [facility] [employer] [address] [place] [phone] Buckle Sorter: Hitesh Alcala MD Albumin/Globulin [Mass ratio] 1.6 {ratio} Normal 1.0-2.5 [facility] Comment on above: Performed By: #### B HCG, AHAVT, AHCV, HBS, LIVP, TREP #### [facility] [employer] [address] [place] [address] [phone] Buckle Sorter: Hitesh Alcala MD Alkaline Phos 68 U/L Normal 35-104 [facility] Comment on above: Performed By: #### B HCG, AHAVT, AHCV, HBS, LIVP, TREP #### [facility] [employer] [address] [place] [phone] Buckle Sorter: Hitesh Alcala MD ALT [Catalytic activity/Vol] 10 U/L Normal 5-33 [facility] Comment on above: Performed By: #### B HCG, AHAVT, AHCV, HBS, LIVP, TREP #### [facility] [employer] [address] [place] [address] [phone] Buckle Sorter: Hitesh Alcala MD AST [Catalytic activity/Vol] 14 U/L Normal <32 [facility] Comment on above: Performed By: #### B HCG, AHAVT, AHCV, HBS, LIVP, TREP #### [address] [address] Buckle Sorter: Hitesh Alcala MD Bilirubin Ql (U) 0.40 mg/dL Normal 0.3-1.2 [facility] Comment on above: Performed By: #### B HCG, AHAVT, AHCV, HBS, LIVP, TREP #### [address] [address] Buckle Sorter: Hitesh Alcala MD Bilirubin, Indirect 0.28 mg/dL Normal 0.00-1.00 [facility] Comment on above: Performed By: #### B HCG, AHAVT, AHCV, HBS, LIVP, TREP #### [address] [address] Buckle Sorter: Hitesh Alcala MD Bilirubin.direct [Mass/Vol] 0.12 mg/dL Normal <0.31 [facility] Comment on above: Performed By: #### B HCG, AHAVT, AHCV, HBS, LIVP, TREP #### [address] [address] Buckle Sorter: Hitesh Alcala MD Protein [Mass/Vol] 7.0 g/dL Normal 6.4-8.3 [facility] Comment on above: Performed By: #### B HCG, AHAVT, AHCV, HBS, LIVP, TREP #### [facility] [employer] [address] [place] [phone] Buckle Sorter: Hitesh Alcala MD Globulin (S) [Mass/Vol] NOT REPORTED Normal 1.5-3.8 [facility] Comment on above: Performed By: #### B HCG, AHAVT, AHCV, HBS, LIVP, TREP #### [facility] [employer] [address] [place] [phone] Buckle Sorter: Hitesh Alcala MD T. pallidum AbOrdered By: Un known Result on 04-13-2019 T. pallidum, IgG Non-Reactive NONREACTIVE [employer] Work Phone: Comment on above: T. pallidum antibodies are not detected. There is no serological evidence of infection with T. pallidum (early primary syphilis cannot be excluded). Retest in 2-4 weeks if syphilis is clinically suspect. T.pallidum Ab Screenon 04-13 T.pallidum Ab Screen NONREACTIVE Normal NR [facility] Comment on above: Result Comment: T. pallidum antibodies are not detected. There is no serological evidence of infection with T. pallidum (early primary syphilis cannot be excluded). Retest in 2-4 weeks if syphilis is clinically suspect. Performed By: #### B HCG, AHAVT, AHCV, HBS, LIVP, TREP #### [employer] [facility] [place] [address] Buckle Sorter: Hitesh Alcala MD CBC with DIFFERENTIALon Basophils Auto #/vol (Bld) 0.1 10*3/uL Normal 0.0-0.1 [facility] Comment on above: Performed By: #### C BCD, CREAT ####[facility] [address] [place] [address] Basophils/100 WBC Auto (Bld) 1.1 % High 0.0-1.0 [facility] Comment on above: Performed By: #### C BCD, CREAT ####[facility] [address] [place] [address] Eosinophils 0.2 10*3/uL Normal 0.0-0.4 [facility] Comment on above: Performed By: #### C BCD, CREAT ####[facility] [address] [place] [address] Eosinophils/100 leukocytes 3.9 % Normal 1.0-4.0 [facility] Comment on above: Performed By: #### C BCD, CREAT ####[facility] [address] [place] [address] Erythrocytes (RBC) 4.72 10*6/uL Normal 4.10-5.10 [facility] Comment on above: Performed By: #### Fermín LAGUNA, CREAT ####[facility] [address] [place] [address] Hematocrit (HCT) 40.7 % Normal 37.0-47.0 [facility] Comment on above: Performed By: #### Fermín LAGUNA, CREAT ####[facility] [address] [place] [address]86 Hemoglobin mass conc (Bld) 13.4 g/dL Normal 12.0-16.0 [facility] Comment on above: Performed By: #### Fermín LAGUNA, CREAT ####[facility] [address] [place] [address]67 Hemoglobin mass conc (Bld) 28.4 pg Normal 27.0-31.0 [facility] Comment on above: Performed By: #### C LUZ ELENA, CREAT ####[facility] [address] [place] [address] IG # 0.0 10*3/uL Normal 0.0-0.1 [facility] Comment on above: Performed By: #### Fermín LAGUNA, CREAT ####[facility] [address] [place] [address] IG % 0.0 % Normal 0.0-1.0 [facility] Comment on above: Performed By: #### C LUZ ELENA, CREAT ####[facility] [address] [place] [address] Lymphocytes 3.3 10*3/uL Normal 1.3-4.4 [facility] Comment on above: Performed By: #### Fermín LAGUNA, CREAT ####[facility] [address] [place] [address] Lymphocytes/100 leukocytes 53.5 % High 27.0-41.0 [facility] Comment on above: Performed By: #### C BCD, CREAT ####[facility] [address] [place] [address] MCH 32.9 g/dl Low 33.0-37.0 [facility] Comment on above: Performed By: #### C BCD, CREAT ####[facility] [address] [place] [address] MCV 86.2 fL Normal 81.0-99.0 [facility] Comment on above: Performed By: #### C BCAlton, CREAT ####[facility] [address] [place] [address] Monocytes 0.6 10*3/uL Normal 0.1-1.0 [facility] Comment on above: Performed By: #### C BCAlton, CREAT ####[facility] [address] [place] [address] Monocytes/100 leukocytes 9.4 % High 3.0-9.0 [facility] Comment on above: Performed By: #### C BCAlton, CREAT ####[facility] [address] [place] [address] Neutrophils 2.0 10*3/uL Low 2.3-7.9 [facility] Comment on above: Performed By: #### C BCAlton, CREAT ####[facility] [address] [place] [address]17 Neutrophils/100 WBC Auto (Bld) 32.1 % Low 47.0-73.0 [facility] Comment on above: Performed By: #### C BCD, CREAT ####[facility] [address] [place] [address] NUCLEATED RED BLOOD CELL 0.0 % Normal 0.0-0.0 [facility] Comment on above: Performed By: #### C BCD, CREAT ####[facility] [address] [place] [address] NUCLEATED RED BLOOD CELL 0.0 10*3/uL Normal 0.0-0.0 [facility] Comment on above: Performed By: #### C BCD, CREAT ####[facility] [address] [place] [address] PLATELET COUNT AUTOMATED 263 10*3/uL Normal 130-400 [facility] Comment on above: Performed By: #### C BCD, CREAT ####[facility] [address] [place] [address] Platelet mean volume (PMV) 11.2 fL Normal 9.6-12.3 [facility] Comment on above: Performed By: #### C BCD, CREAT ####[facility] [address] [place] [address] RED CELL DISTRI WIDTH 12.7 % Normal 0-14.5 [facility] Comment on above: Performed By: #### C BCD, CREAT ####[facility] [address] [place] [address] WBC (Leukocytes) 6.1 10*3/uL Normal 4.8-10.8 [facility] Comment on above: Performed By: #### C BCD, CREAT ####[facility] [address] [place] [address] CREATININEon 05-25-2017 Creatinine 0.76 mg/dL Normal 0.55-1.02 [facility] Comment on above: Performed By: #### C BCD, CREAT ####[facility] [address] [place] [address] EST GLOM FILT > 60 Normal [facility] Comment on above: Result Comment: Resu lt Units: mL/min/1.73 m2Note: Persistent reduction for 3 months or more of an eGFRof <60 ml/min/1.73 m2 defines Chronic Kidney Disease (CKD).Patients with eGFR values greater than or equal to60 ml/min/1.73 m2 may also have CKD if evidence ofpersistent proteinuria is present. STAGES OF CKD eGFRStage 1 Kidney damage with normal kidney function >=90Stage 2 Kidney damage with mild loss of kidney function 89-60Stage 3a Mild to moderate loss of kidney function 59-44Stage 3b Moderate to severe loss of kidney function 43-30Stage 4 Severe loss of kidney function 29-15Stage 5 Kidney failure < 15. Performed By: #### C BCD, CREAT ####[facility] [address] [place] [address] ESTIMATED GLOM FILT RATE > 60 Normal [facility] Comment on above: Performed By: #### C BCD, CREAT ####[facility] [address] [place] [address] BETA-HCG, QUANTon 05-22-2017 BETA-HCG, QUANT < 1.0 Low 1-3 [facility] Comment on above: Result Comment: INTE RPRETATION FOR : 0-3 mIU/ml=NEGATIVE 4-24 mIU/mL=BORDERLINE >25 mIU/mL=POSITIVE Performed By: #### C BCD, PT, BHCG, CMP, ETOH ####[facility] [address] [place] [address] CBC with DIFFERENTIALon Basophils Auto #/vol (Bld) 0.1 10*3/uL Normal 0.0-0.1 [facility] Comment on above: Performed By: #### C BCD, PT, BHCG, CMP, ETOH ####[facility] [address] [place] [address] Basophils/100 WBC Auto (Bld) 0.7 % Normal 0.0-1.0 [facility] Comment on above: Performed By: #### C BCD, PT, BHCG, CMP, ETOH ####[facility] [address] [place] [address] Eosinophils 0.2 10*3/uL Normal 0.0-0.4 [facility] Comment on above: Performed By: #### C BCD, PT, BHCG, CMP, ETOH ####[facility] [address] [place] [address] Eosinophils/100 leukocytes 3.2 % Normal 1.0-4.0 [facility] Comment on above: Performed By: #### C BCD, PT, BHCG, CMP, ETOH ####[facility] [address] [place] [address] Erythrocytes (RBC) 4.48 10*6/uL Normal 4.10-5.10 [facility] Comment on above: Performed By: #### C BCD, PT, BHCG, CMP, ETOH ####[facility] [address] [place] [address] Hematocrit (HCT) 38.9 % Normal 37.0-47.0 [facility] Comment on above: Performed By: #### C BCD, PT, BHCG, CMP, ETOH ####[facility] [address] [place] [address] Hemoglobin mass conc (Bld) 12.5 g/dL Normal 12.0-16.0 [facility] Comment on above: Performed By: #### C BCD, PT, BHCG, CMP, ETOH ####[facility] [address] [place] [address] Hemoglobin mass conc (Bld) 27.9 pg Normal 27.0-31.0 [facility] Comment on above: Performed By: #### C BCD, PT, BHCG, CMP, ETOH ####[facility] [address] [place] [address] IG # 0.0 10*3/uL Normal 0.0-0.1 [facility] Comment on above: Performed By: #### C BCD, PT, BHCG, CMP, ETOH ####[facility] [address] [place] [address]67 IG % 0.3 % Normal 0.0-1.0 [facility] Comment on above: Performed By: #### C BCD, PT, BHCG, CMP, ETOH ####[facility] [address] [place] [address] Lymphocytes 2.4 10*3/uL Normal 1.3-4.4 [facility] Comment on above: Performed By: #### C BCD, PT, BHCG, CMP, ETOH ####[facility] [address] [place] [address] Lymphocytes/100 leukocytes 32.3 % Normal 27.0-41.0 [facility] Comment on above: Performed By: #### C BCD, PT, BHCG, CMP, ETOH ####[facility] [address] [place] [address] MCH 32.1 g/dl Low 33.0-37.0 [facility] Comment on above: Performed By: #### C BCD, PT, BHCG, CMP, ETOH ####[facility] [address] [place] [address] MCV 86.8 fL Normal 81.0-99.0 [facility] Comment on above: Performed By: #### C BCD, PT, BHCG, CMP, ETOH ####[facility] [address] [place] [address] Monocytes 0.7 10*3/uL Normal 0.1-1.0 [facility] Comment on above: Performed By: #### C BCD, PT, BHCG, CMP, ETOH ####[facility] [address] [place] [address] Monocytes/100 leukocytes 8.8 % Normal 3.0-9.0 [facility] Comment on above: Performed By: #### C BCD, PT, BHCG, CMP, ETOH ####[facility] [address] [place] [address] Neutrophils 4.1 10*3/uL Normal 2.3-7.9 [facility] Comment on above: Performed By: #### C BCD, PT, BHCG, CMP, ETOH ####[facility] [address] [place] [address] Neutrophils/100 WBC Auto (Bld) 54.7 % Normal 47.0-73.0 [facility] Comment on above: Performed By: #### C BCD, PT, BHCG, CMP, ETOH ####[facility] [address] [place] [address] NUCLEATED RED BLOOD CELL 0.0 % Normal 0.0-0.0 [facility] Comment on above: Performed By: #### C BCD, PT, BHCG, CMP, ETOH ####[facility] [address] [place] [address] NUCLEATED RED BLOOD CELL 0.0 10*3/uL Normal 0.0-0.0 [facility] Comment on above: Performed By: #### C BCD, PT, BHCG, CMP, ETOH ####[facility] [address] [place] [address] PLATELET COUNT AUTOMATED 270 10*3/uL Normal 130-400 [facility] Comment on above: Performed By: #### C BCD, PT, BHCG, CMP, ETOH ####[facility] [address] [place] [address] Platelet mean volume (PMV) 10.6 fL Normal 9.6-12.3 [facility] Comment on above: Performed By: #### C BCD, PT, BHCG, CMP, ETOH ####[facility] [address] [place] [address] RED CELL DISTRI WIDTH 12.7 % Normal 0-14.5 [facility] Comment on above: Performed By: #### C BCD, PT, BHCG, CMP, ETOH ####[facility] [address] [place] [address] WBC (Leukocytes) 7.4 10*3/uL Normal 4.8-10.8 [facility] Comment on above: Performed By: #### C BCD, PT, BHCG, CMP, ETOH ####[facility] [address] [place] [address] COMPREHENSIVE METABOLIC PANE [place] 05-22-2017 Alanine aminotransferase (ALT) 14 U/L Normal 12-78 [facility] Comment on above: Performed By: #### C BCD, PT, BHCG, CMP, ETOH ####[facility] [address] [place] [address] Albumin 3.2 gm/dl Normal 3.1-4.5 [facility] Comment on above: Performed By: #### C BCD, PT, BHCG, CMP, ETOH ####[facility] [address] [place] [address] Alkaline phosphatase (ALP) 56 U/L Normal 45-117 [facility] Comment on above: Performed By: #### C BCD, PT, BHCG, CMP, ETOH ####[facility] [address] [place] [address] Bilirubin (total) 0.3 mg/dL Normal 0.2-1.0 [facility] Comment on above: Performed By: #### C BCD, PT, BHCG, CMP, ETOH ####[facility] [address] [place] [address] Calcium 7.8 mg/dL Low 8.5-10.5 [facility] Comment on above: Performed By: #### C BCD, PT, BHCG, CMP, ETOH ####[facility] [address] [place] [address] Chloride 105 mmol/L Normal 98-107 [facility] Comment on above: Performed By: #### C BCD, PT, BHCG, CMP, ETOH ####[facility] [address] [place] [address] CO2 31 mmol/L Normal 21-32 [facility] Comment on above: Performed By: #### C BCD, PT, BHCG, CMP, ETOH ####[facility] [address] [place] [address] Creatinine 0.68 mg/dL Normal 0.55-1.02 [facility] Comment on above: Performed By: #### C BCD, PT, BHCG, CMP, ETOH ####[facility] [address] [place] [address] EST GLOM FILT > 60 Normal [facility] Comment on above: Result Comment: Resu lt Units: mL/min/1.73 m2Note: Persistent reduction for 3 months or more of an eGFRof <60 ml/min/1.73 m2 defines Chronic Kidney Disease (CKD).Patients with eGFR values greater than or equal to60 ml/min/1.73 m2 may also have CKD if evidence ofpersistent proteinuria is present. STAGES OF CKD eGFRStage 1 Kidney damage with normal kidney function >=90Stage 2 Kidney damage with mild loss of kidney function 89-60Stage 3a Mild to moderate loss of kidney function 59-44Stage 3b Moderate to severe loss of kidney function 43-30Stage 4 Severe loss of kidney function 29-15Stage 5 Kidney failure < 15. Performed By: #### C BCD, PT, BHCG, CMP, ETOH ####[facility] [address] [place] [address] ESTIMATED GLOM FILT RATE > 60 Normal [facility] Comment on above: Performed By: #### C BCD, PT, BHCG, CMP, ETOH ####[facility] [address] [place] [address] Glucose mass conc 83 mg/dL Normal 65-99 [facility] Comment on above: Performed By: #### C BCD, PT, BHCG, CMP, ETOH ####[facility] [address] [place] [address] Potassium molar conc 3.6 mmol/L Normal 3.5-5.1 [facility] Comment on above: Performed By: #### C BCD, PT, BHCG, CMP, ETOH ####[facility] [address] [place] [address] Protein 6.5 g/dL Normal 6.4-8.2 [facility] Comment on above: Performed By: #### C BCD, PT, BHCG, CMP, ETOH ####[facility] [address] [place] [address] SGOT/AST 11 IU/L Normal 3-35 [facility] Comment on above: Performed By: #### C BCD, PT, BHCG, CMP, ETOH ####[facility] [address] [place] [address] Sodium 141 mmol/L Normal 136-145 [facility] Comment on above: Performed By: #### C BCD, PT, BHCG, CMP, ETOH ####[facility] [address] [place] [address] Urea nitrogen 7 mg/dL Normal 7-24 [facility] Comment on above: Performed By: #### C BCD, PT, BHCG, CMP, ETOH ####[facility] [address] [place] [address] ETHYL ALCOHOLon 05-22-2017 ETHYL ALCOHOL < 3.0 Normal <3 [facility] Comment on above: Performed By: #### C BCD, PT, BHCG, CMP, ETOH ####[facility] [address] [place] [address] PROTHROMBIN TIMEon 8 INTERNATIONAL NORM RATIO 1.0 Low 2.0-3.5 [facility] Comment on above: Result Comment: INR THERAPEUTIC RANGE: GROUP A 2.0-3.0 INR GROUP B 2.5-3.5 INR GROUP A SUGGESTED INDICATIONS: PROPHYLAXIS AND TREATMENT OF VENOUS THROMBOSIS TREATMENT OF PULMONARY EMBOLISM ATRIAL FIBRILLATION GROUP B SUGGESTED INDICATIONS: MECHANICAL PROSTHETIC VALVES Performed By: #### C BCD, PT, BHCG, CMP, ETOH ####[facility] [address] [place] [address] Prothrombin time (PT) Coag time (PPP) 11.3 s Normal 9.0-12.4 [facility] Comment on above: Performed By: #### C BCD, PT, BHCG, CMP, ETOH ####[facility] [address] [place] [address] URINALYSIS REFLEX TO CULTURE on 05-22-2017 Bilirubin (total) Negative Normal NEGATIVE [facility] Comment on above: Performed By: #### U ARFXUC ####[facility] [address] [place] [address] BLOOD Negative Normal NEGATIVE [facility] Comment on above: Performed By: #### U ARFXUC ####[facility] [address] [place] [address] Erythrocytes (RBC) 5-10 Normal 0-2 [facility] Comment on above: Performed By: #### U ARFXUC ####[facility] [address] [place] [address] Glucose mass conc Negative Normal NEGATIVE [facility] Comment on above: Performed By: #### U ARFXUC ####[facility] [address] [place] [address] KETONE Negative Normal NEGATIVE [facility] Comment on above: Performed By: #### U ARFXUC ####[facility] [address] [place] [address] LEUKO ESTERASE Negative Normal NEGATIVE [facility] Comment on above: Performed By: #### U ARFXUC ####[facility] [address] [place] [address] pH of blood 5.5 [pH] Normal 5.0-9.0 [facility] Comment on above: Performed By: #### U ARFXUC ####[facility] [address] [place] [address] Protein Negative Normal NEGATIVE [facility] Comment on above: Performed By: #### U ARFXUC ####[facility] [address] [place] [address] URINE REFLEX COMMENT YES Normal NO [facility] Comment on above: Result Comment: REFL EX CRITERIA MET FOR URINE CULTURE Performed By: #### U ARFXUC ####[facility] [address] [place] [address] Urine, bacteria in sediment 4+ Abnormal [facility] Comment on above: Performed By: #### U ARFXUC ####[facility] [address] [place] [address] Urine, clarity SL CLOUDY Normal CLEAR [facility] Comment on above: Performed By: #### U ARFXUC ####[facility] [address] [place] [address] Urine, color YELLOW Normal YELLOW [facility] Comment on above: Performed By: #### U ARFXUC ####[facility] [address] [place] [address] Urine, epithelial cells in sediment 11-15 Normal [facility] Comment on above: Performed By: #### U ARFXUC ####[facility] [address] [place] [address] Urine, nitrite presence Positive Abnormal NEGATIVE E ast [facility] Comment on above: Performed By: #### U ARFXUC ####[facility] [address] [place] [address] Urine, specific gravity >= 1.030 Normal 1.005-1.030 [facility] Comment on above: Performed By: #### U ARFXUC ####[facility] [address] [place] [address] Urine, urobilinogen 0.2 E.U./dl Normal 0.2-1.0 [facility] Comment on above: Performed By: #### U ARFXUC ####[facility] [address] [place] [address] WBC (Leukocytes) 11-15 Normal 0-5 [facility] Comment on above: Performed By: #### U ARFXUC ####[facility] [address] [place] [address] URINE DRUG SCREENon 03-02-20 18 URINE AMPHETAMINES > 1000 Abnormal 1000ng/ml [facility] Comment on above: Performed By: #### U DRG ####[facility] [address] [place] [address] URINE BARBITURATES < 200 Normal 200ng/ml [facility] Comment on above: Performed By: #### U DRG ####[facility] [address] [place] [address] URINE BENZODIAZEPINES < 200 Normal 200ng/ml [facility] Comment on above: Performed By: #### U DRG ####[facility] [address] [place] [address] URINE CANNABINOIDS (THC) > 50 Abnormal 50ng/ml [facility] Comment on above: Performed By: #### U DRG ####[facility] [address] [place] [address] URINE COCAINE < 300 Normal 300ng/ml [facility] Comment on above: Performed By: #### U DRG ####[facility] [address] [place] [address] URINE METHADONE < 300 Normal 300ng/ml [facility] Comment on above: Performed By: #### U DRG ####[facility] [address] [place] [address] URINE OPIATES > 300 Abnormal 300ng/ml [facility] Comment on above: Performed By: #### U DRG ####[facility] [address] [place] [address] Urine, pH [pH] Normal 25ng/ml [facility] Comment on above: Result Comment: pH o f the urine has been checked and is within acceptable range 5-8 " The Drugs of Abuse are screening results only."Confirmation and Quantitation by GC/MS can be performed byrequest at an additional charge. ANYTHING EQUAL TO OR GREATER THAN THE REFERENCE INDICATESABUSE. ( > = POSITIVE < = NEGATIVE ) Performed By: #### U DRG ####[facility] [address] [place] [address] Vital Signs Date Time Vital Sign Value Performing Clinician Akin werner 08-23-2024 15:15-0400 Body temperature 97.9 [degF] No Primary Care Physician [facility] 08-23-2024 15:15-0400 Diastolic blood pressure 84 mm[Hg] No Primary Care Physician [facility] 08-23-2024 15:15-0400 Heart rate 86 /min No Primary Care Physician [facility] 08-23-2024 15:15-0400 Respiratory rate 16 /min No Primary Care Physician [facility] 08-23-2024 15:15-0400 SaO2% (BldA) [Mass fraction] 98 % No Primary Care Physician [facility] 08-23-2024 15:15-0400 Systolic blood pressure 155 mm[Hg] No Primary Care Physician [facility] 08-22-2024 21:59-0400 Body height 165.1 cm No Primary Care Physician [facility] 08-22-2024 21:59-0400 Body mass index (BMI) [Ratio] 27.8 kg/m2 No Primary Care Physician [facility] 08-22-2024 21:59-0400 Body weight 75.7 kg No Primary Care Physician [facility] 08-22-2024 21:00-0400 Body mass index (BMI) [Ratio] 28.3 kg/m2 No Primary Care Physician [facility] 08-22-2024 21:00-0400 Body temperature 98.5 [degF] No Primary Care Physician [facility] 08-22-2024 21:00-0400 Body weight 77.06 kg No Primary Care Physician [facility] 08-22-2024 21:00-0400 Diastolic blood pressure 73 mm[Hg] No Primary Care Physician [facility] 08-22-2024 21:00-0400 Systolic blood pressure 111 mm[Hg] No Primary Care Physician [facility] 08-22-2024 20:57-0400 Heart rate 64 /min No Primary Care Physician [facility] 08-22-2024 20:57-0400 Respiratory rate 16 /min No Primary Care Physician [facility] 08-22-2024 20:57-0400 SaO2% (BldA) [Mass fraction] 97 % No Primary Care Physician [facility] 08-22-2024 17:42-0400 Body height 165.1 cm No Primary Care Physician [facility] 09-06-2022 08:00-0400 Body temperature 98.7 [degF] No Primary Care Physician [facility] 09-06-2022 08:00-0400 Diastolic blood pressure 81 mm[Hg] No Primary Care Physician [facility] 09-06-2022 08:00-0400 Heart rate 93 /min No Primary Care Physician [facility] 09-06-2022 08:00-0400 Respiratory rate 16 /min No Primary Care Physician [facility] 09-06-2022 08:00-0400 SaO2% (BldA) [Mass fraction] 98 % No Primary Care Physician [facility] 09-06-2022 08:00-0400 Systolic blood pressure 121 mm[Hg] No Primary Care Physician [facility] 09-05-2022 18:49-0400 Body height 165.1 cm No Primary Care Physician [facility] 09-05-2022 18:49-0400 Body mass index (BMI) [Ratio] 29.3 kg/m2 No Primary Care Physician [facility] 09-05-2022 18:49-0400 Body weight 80 kg No Primary Care Physician [facility] 09-05-2022 18:46-0400 Body temperature 97.2 [degF] No Primary Care Physician [facility] 09-05-2022 18:46-0400 Diastolic blood pressure 69 mm[Hg] No Primary Care Physician [facility] 09-05-2022 18:46-0400 Heart rate 82 /min No Primary Care Physician [facility] 09-05-2022 18:46-0400 Respiratory rate 16 /min No Primary Care Physician [facility] 09-05-2022 18:46-0400 SaO2% (BldA) [Mass fraction] 97 % No Primary Care Physician [facility] 09-05-2022 18:46-0400 Systolic blood pressure 124 mm[Hg] No Primary Care Physician [facility] 09-05-2022 16:34-0400 Body height 165.1 cm No Primary Care Physician [facility] 09-05-2022 16:34-0400 Body mass index (BMI) [Ratio] 26.6 kg/m2 No Primary Care Physician [facility] 09-05-2022 16:34-0400 Body weight 72.52 kg No Primary Care Physician [facility] 07-24-2021 10:57-0400 Body height 165.1 cm No Primary Care Physician [facility] Work Phone: 07-24-2021 10:57-0400 Body mass index (BMI) [Ratio] 26.7 kg/m2 No Primary Care Physician [facility] Work Phone: 07-24-2021 10:57-0400 Body temperature 98.6 [degF] No Primary Care Physician [facility] Work Phone: 07-24-2021 10:57-0400 Body weight 73 kg No Primary Care Physician [facility] Work Phone: 07-24-2021 10:57-0400 Diastolic blood pressure 110 mm[Hg] No Primary Care Physician [facility] Work Phone: 07-24-2021 10:57-0400 Heart rate 126 /min No Primary Care Physician [facility] Work Phone: 07-24-2021 10:57-0400 Respiratory rate 18 /min No Primary Care Physician [facility] Work Phone: 07-24-2021 10:57-0400 SaO2% (BldA) [Mass fraction] 96 % No Primary Care Physician [facility] Work Phone: 07-24-2021 10:57-0400 Systolic blood pressure 158 mm[Hg] No Primary Care Physician [facility] Work Phone: Encounters Encounter Date Encounter Type Care Provider Facility Start: 08-23-2024 Non-patient / Non-visit Dr. Ericka Vera MD -[facility] Work Phone: Start: 08-22-2024 ambulatory [facility] Start: 08-22-2024 End: 08-23-2024 Evaluation and management of inpatient Dr. Soraya Yoon MD -[facility] Work Phone: Start: 04-20-2024 ambulatory No Primary Car e Physician Facility:[facility] Start: 04-11-2024 End: 04-13-2024 Evaluation and management of inpatient ISSAC CARDONA MD Facility:[facility] Start: 12-20-2023 End: 12-20-2023 Emergency department patient visit No Primary Care Physician Facility:[facility] Start: 09-06-2022 Non-patient / Non-visit No Nell peacock Care Physician [facility] Start: 09-05-2022 Non-patient / Non-visit No Nell peacock Care Physician [facility] Start: 09-05-2022 End: 09-06-2022 Evaluation and management of inpatient No Primary Care Physician [facility] Start: 07-24-2021 End: 07-24-2021 Emergency department patient visit No Primary Care Physician [facility]-Emergency Department Start: 05-09-2021 Patient encounter procedure No Primary Care Physician [facility]-Laboratory Start: 05-09-2021 Non-patient / Non-visit No Nell peacock Care Physician [facility] Start: 04-13-2019 End: 04-14-2019 Patient encounter procedure HERBERT DANIELSON [facility] Start: 04-13-2019 End: 04-13-2019 Subsequent hospital visit by physician Tito Rose MD Work Phone: [facility] Start: 05-22-2017 End: 05-25-2017 Evaluation and management of inpatient MANUEL ZULUAGA Facility:[facility] Procedures Date Procedure Procedure Detail Performing Clinician Start: 08-22-2024 Methadone measurement, urine No Primary Care Physician Comment on above: If confirmation test ing is needed, a separate order will be required to send out testing to the reference laboratory. Start: 08-22-2024 Estimated creatinine clearance No Primary Care Physician Start: 08-22-2024 Hepatitis C antibody measurement No Primary Care Physician Comment on above: Reactive: Presumptiv e evidence of antibodies to HCV. Follow CDC recommendations for supplemental testing.Non-Reactive: Antibodies to HCV were not detected; does not exclude the possibility of exposure to HCVReactive Results are presumptive evidence of antibodies to HCV. Follow CDC recommendations for supplemental testing.Order confirmation testing: HCV Quant by PCR testing - HCVPCR #[id number] Non Reactive: < 0.8 Equivocal: >/= 0.8 to < 1.0 Reactive: >/= 1.0The CDC requires that a reactive/equivocal HCV antibody result be sent out for confirmation. HCV Quant by PCR testing. Start: 08-22-2024 Serologic test for syphilis No Primary Care Physician Start: 07-24-2021 Plain x-ray of hand No Primary Care Physician Start: 04-13-2019 Ecg routine ecg w/le ast 12 lds w/i&r HERBERT VRABEL Start: 04-13-2019 Antibody treponema pallidum HERBERT VRABEL Start: 04-13-2019 Gonadotropin chorion ic quantitative HERBERT VRABEL Start: 04-13-2019 Hepatic function panel HERBERT VRABEL Start: 04-13-2019 Hepatitis a antibody haab HERBERT VRABEL Start: 04-13-2019 Hepatitis c antibody RITA SANDEE VRABEL Start: 04-13-2019 Iaad ia hepatitis b surface antigen HERBERT VRABEL Start: 04-13-2019 Iadna hepatitis c qu ant & reverse pharmacist aide HERBERT VRABEL Start: 04-13-2019 Ecg routine ecg w/le ast 12 lds w/i&r Herbert Pickens [facility] Work Phone: Start: 04-13-2019 Gonadotropin chorion ic quantitative Unknown Provider Result Start: 04-13-2019 Hepatic function panel Unknown Provider Result Start: 04-13-2019 Iaad ia hepatitis b surface antigen Unknown Provider Result Start: 04-13-2019 T. PALLIDUM AB Unknown Provider Result Plan of Treatment Date Care Activity Detail Author Start: 08-23-2024 Assessment using assessment scale [facility] Start: 08-23-2024 [facility] Start: 08-23-2024 Patient discharge [facility] Start: 08-22-2024 Assessment of risk o f venous thromboembolism [facility] Start: 08-22-2024 Inhalation therapy procedure [facility] Start: 08-22-2024 Introduction of urin carmelo catheter [facility] Start: 08-22-2024 Notification of physician [facility] Start: 08-22-2024 Oxygen therapy [facility] Start: 08-22-2024 Provision of activit y privileges [facility] Start: 08-22-2024 Referral to service [facility] Start: 08-22-2024 Vital signs measurements [facility] Start: 08-22-2024 [facility] Start: 08-22-2024 Hospital admission, emergency, from emergency room, medical nature [facility] Start: 08-22-2024 Serologic test for syphilis [facility] Start: 08-22-2024 [facility] Start: 08-22-2024 Admission procedure [facility] Start: 08-22-2024 Verification routine [facility] Start: 08-22-2024 Patient referral to dietitian [facility] Start: 09-06-2022 Patient discharge [facility] Start: 09-05-2022 Assessment using assessment scale [facility] Start: 09-05-2022 [facility] Start: 09-05-2022 Ambulation without limitation [facility] Start: 09-05-2022 Assessment of risk o f venous thromboembolism [facility] Start: 09-05-2022 Insertion of cathete r into peripheral vein [facility] Start: 09-05-2022 Providing care accor ding to standard [facility] Start: 09-05-2022 Tobacco use cessatio n education [facility] Start: 09-05-2022 [facility] Start: 09-05-2022 Admission procedure [facility] Start: 09-05-2022 Verification routine [facility] Start: 11-21-2018 Influenza vaccination Flu vaccine (# 1) [employer] Phone: Start: 2006 Cervical cancer screen Cervical canc er screen [employer] Phone: Start: 2000 HIV screen HIV screen [employer] Work Phone: Start: 1996 DTaP/Tdap/Td vaccine (1 - Tdap) DTaP/Tdap/Td vaccine (1 - Tdap) [employer] Phone: Start: 1986 Varicella Vaccine (1 of 2 - 2-dose childhood series) Varicella Vaccine (1 of 2 - 2-dose childhood series) [employer] Phone: Amphetamines [Presen ce] in Urine by Screen method >1000 ng/mL [facility] Benzodiazepine measurement, urine [facility] Cocaine measurement, urine [facility] EKG 12 Lead EKG 12 Lead ECG Routine 04/13/2019 10:57 AM [employer] Phone: Erythrocyte mean corpuscular volume determination [facility] fentaNYL [Presence] in Urine by Screen method [facility] Hematocrit [Volume Fraction] of Blood [facility] Hemoglobin [Mass/vol ume] in Blood [facility] End: 04-13-2019 Hepatitis C RNA, quantitative, PCR Hepatitis C RNA, quantitative, PCR Lab Routine Once for 1 Occurrences starting 04/13/2019 until 04/13/2019 [employer] Phone: Comment on above: Once for 1 Occurrenc es starting 04/13/2019 until 04/13/2019 Hepatitis C RNA, quantitative, PCR Hepatitis C RNA, quantitative, PCR Lab Routine 04/13/2019 10:49 AM [employer] Phone: Leukocytes [#/volume ] in Blood [facility] Mean corpuscular hemoglobin concentration determination [facility] Mean corpuscular hemoglobin determination [facility] Methadone measuremen t, urine [facility] Neutrophil count [facility] Neutrophil percent differential count [facility] Patient Education Fx Finger Toe [facility] Work Phone: Patient referral [facility] Work Phone: Phencyclidine [Prese nce] in Urine [facility] Platelets [#/volume] in Blood [facility] Red blood cell count [facility] Red cell distributio n width determination [facility] Urine cannabinoid measurement [facility] Urine opiate measurement [facility] Immunizations Immunization Date Immunization Notes Care Provider Caroline botello 01-27-2018 influenza, injectabl e, quadrivalent, preservative free No Primary Care Physician [facility] 01-27-2018 influenza, seasonal, injectable No Primary Care Physician [facility] 05-24-2012 Pneumococcal Vaccine No Prim carmelo Care Physician [facility] Work Phone: 05-24-2012 pneumococcal vaccine , unspecified formulation No Primary Care Physician [facility] Payers Date Payer Category Payer Self-pay [id number] 2018 Unknown [facility] MEDICAID xxxxxxxxxxx 2018-Present [phone] CLAIMS DEPARTMENT [address] [place] [address] xxxxxxxxxxx [id number] 2013 Unknown [id number] 2013 Unknown [id number] 1985 Unknown [id number] 1985 Unknown [id number] 1985 Unknown [id number] Unknown [id number] Unknown [id number] Unknown [id number] Unknown [id number] Unknown [id number] Social History Date Type Detail Facility Tobacco smoking status AZIS Unknown if ever smoked [employer] Work Phone: Sex Assigned At Not on file [facility] [employer] Work Phone: Start: 07-24-2021 End: 09-05-2022 Tobacco smoking status NHIS Unknown if ever smoked [facility] Start: 10-17-2019 None [facility] Start: 10-17-2019 Heroin;Marijuana [facility] Start: 10-17-2019 With Family [facility] Start: 10-18-2019 Cigarettes [facility] Start: 1985 Sex Assigned At Female [facility] Start: 08-22-2024 Tobacco smoking status NHIS Current Light tobacco smoker [facility] NEGATED: Highlighted row [facility] NEGATED: Highlighted row Not [facility] Goals Date Patient Goal Desired Activity /State Functional Status Date Assessment Result Facility 08-23-2024 Functional status Up ad reji [facility] Work Phone: 09-06-2022 Functional status Up ad reji;Bathroom Priv ilege [facility] Work Phone: Mental Status Date Assessment Result Facility 08-22-2024 Cognitive function Cooperative;Anxious [facility] Work Phone: 09-06-2022 Cognitive function Voice/Name [facility] Work Phone: Clinical Notes 09-05-2022 to 08-23-2024 Note Date & Type Note Facility 08-23-2024 Note [facility] Medical Records Department [address] [place] [address] Discharge Summary 08/23/24 1710 MR#: [id number] Acct: [id number] Name: JOHN MURCIA Rep #: [id number] : 1985 38 From: Ericka Vera MD PCP: Care Physician,No Primary Status:DIS IN Location: [facility] [id number] Providers Date of Admission: 08/22/24 Date of Discharge: 08/23/24 Primary Care Physician: No Primary Care Phys Reason For Visit: ACUTE OPIATE WITHDRAWL Diagnosis Discharge Diagnosis (1) Desire for detoxification: Status: Acute (2) Opiate withdrawal: Status: Acute Code(s): F11.23 - Opioid dependence with withdrawal Plan #Acute opioid withdrawal * usually snorts fentanyl. * Denies any symptoms of withdrawal. On opioid withdrawal protocol with buprenorphine adjunctive meds for symptomatic relief. Monitor COWS score * #Anxiety and depression: Currently not on any meds. Follow-up with PCP for medications as needed #Nicotine dependence: Counseled to quit. Nicotine patch as needed DVT prophylaxis: Low risk. Encourage ambulation. Medications at Discharge Home Medications [facility] 08/22/24 Hospital Course Operations None Procedures None Summary of Care Provided Minutes Spent on Discharge: 38 Hospital Course: Patient is a 38-year-old female with past medical history as outlined including history of polysubstance abuse namely opioids and methamphetamine as well as cannabis and nicotine. She was admitted to the ED on 08/22/2024 for acute opioid withdrawal. She usually snorted fentanyl and had last use was on the morning of the day before admission. She started having abdominal cramping and generalized aches and chills as well as fatigue and restlessness and increased sweating so she came into the ED for acute opioid withdrawal. She was admitted and managed for acute opioid withdrawal and started on withdrawal protocol with buprenorphine with adjunctive meds for symptomatic relief. Patient was initially agreeable and tolerating the detox process but subsequently decided to sign out AGAINST MEDICAL ADVICE later in the day on 08/23/2024. Patient was seen on 08/23/2024, seen and examined on that day. She had no active complaints then and said her withdrawal symptoms are improved. However subsequently decided to sign out AMA. Physical Exam Const alert, oriented x3 and no apparent distress General Appearance: cooperative, comfortable and well kempt Orientation / Consciousness: awake Exam Limitations: no limitations HEENT normocephalic, head/scalp atraumatic, hearing grossly normal bilaterally, moist oral mucous membranes and oropharynx normal Mouth: oral and palatal mucosa normal Eyes EOMs intact bilaterally and conjunctivae normal Neck no lymphadenopathy and supple Lymph Lymphatic: no lymphedema noted Resp normal respiratory effort, normal air movement and clear to auscultation bilaterally Cardio regular rate, regular rhythm, S1 normal heart sound, S2 normal heart sound and no murmurs GI normal to inspection, nondistended, normoactive bowel sounds, soft to palpation, non-tender and non- distended Extremity normal to inspection, full ROM, normal capillary refill, no clubbing, cyanosis or edema and no calf tenderness General Extremity: no tenderness to palpation of joints or extremities Skin no rashes or lesions noted General Skin Exam: no breakdown Neuro oriented x3, moves all extremities, no focal motor deficits and no sensory deficits noted Sensorium / Orientation: awake Motor Exam: strength 5/5 throughout and general weakness Psych thought process normal, cooperative and affect normal Appearance: appropriate Weight / BMI Weight Weight: 166 lb 14.239 oz Body Mass Index (BMI) 27.8 ABG / Lab / Microbiology Data 08/23/24 06:50 08/22/24 20:59 Laboratory: Laboratory Results - last 24 hr 08/22/24 20:59: WBC Cancelled, Corrected WBC Cancelled, RBC Cancelled, Hgb Cancelled, Hct Cancelled, MCV Cancelled, MCH Cancelled, MCHC Cancelled, RDW Std Deviation Cancelled, RDW Coeff of Nilda Cancelled, Plt Count Cancelled, MPV Cancelled, Immature Gran % (Auto) Cancelled, Neut % (Auto) Cancelled, Lymph % (Auto) Cancelled, Sublette % (Auto) Cancelled, Eos % (Auto) Cancelled, Baso % (Auto) Cancelled, Absolute Neuts (auto) Cancelled, Absolute Lymphs (auto) Cancelled, Total Counted Cancelled, Neutrophils % (Manual) Cancelled, Band Neutrophils % Cancelled, Lymphocytes % (Manual) Cancelled, Monocytes % (Manual) Cancelled, Eosinophils % (Manual) Cancelled, Basophils % (Manual) Cancelled, Metamyelocytes % Cancelled, Myelocytes % Cancelled, Promyelocytes % Cancelled, Blast Cells % Cancelled, Plasma Cell % (Manual) Cancelled, Other Cells % Cancelled, Nucleated RBC % Cancelled, Nucleated RBCs/100 WBC Cancelled, Differential Comment Cancelled, Diff Path Review Cancelle (more content not included)... [facility] 08-23-2024 Progress note [facility] 08-23-2024 Progress note Note Date/Time August 23, 2024 4:55pm [facility] Medical Records Department [address] [place] [address] Progress Note 08/23/24 1308 MR#: [id number] Acct: [id number] Name: MURCIAJOHN Rep #:[id number] : 1985 38 From: Ericka Vera MD PCP: Care Physician,No Primary Status :ADM IN Location: MS3 FX180-5 Subjective Subjective Patient seen and examined. She had no active complaints. She denied any symptoms of withdrawal. Review of symptoms otherwise negative. Objective Data Objective Data Vital Signs: Vital Signs Temp Pulse Resp BP Pulse Ox O2 Del Method 97.7 F L 66 16 124/67 H 97 Room Air 08/23/24 08:01 08/23/24 08:01 08/23/24 08:01 08/23/24 08:01 08/23/24 08:01 08/23/24 08:01 Oxygen Delivery Method Room Air Weight: 166 lb 14.239 oz Body Mass Index (BMI) 27.8 Intake & Output: Intake and Output for Last 24 Hours 08/21/24 08/22/24 08/23/24 23:59 23:59 23:59 Intake Total 200 / 200 Balance 200 / 200 Lab / Micro Data 08/23/24 06:50 08/22/24 20:59 Labs: Laboratory Results - last 24 hr 08/22/24 20:59: WBC Cancelled, Corrected WBC Cancelled, RBC Cancelled, Hgb Cancelled, Hct Cancelled, MCV Cancelled, MCH Cancelled, MCHC Cancelled, RDW Std Deviation Cancelled, RDW Coeff of Nilda Cancelled, Plt Count Cancelled, MPV Cancelled, Immature Gran % (Auto) Cancelled, Neut % (Auto) Cancelled, Lymph % (Auto) Cancelled, Sublette % (Auto) Cancelled, Eos % (Auto) Cancelled, Baso % (Auto)Cancelled, Absolute Neuts (auto) Cancelled, Absolute Lymphs (auto) Cancelled, Total Counted Cancelled, Neutrophils % (Manual) Cancelled, Band Neutrophils % Cancelled, Lymphocytes % (Manual) Cancelled, Monocytes % (Manual) Cancelled, Eosinophils % (Manual) Cancelled, Basophils % (Manual) Cancelled, Metamyelocytes% Cancelled, Myelocytes % Cancelled, Promyelocytes % Cancelled, Blast Cells % Cancelled, Plasma Cell % (Manual) Cancelled, Other Cells % Cancelled, Nucleated RBC % Cancelled, Nucleated RBCs/100 WBC Cancelled, Differential Comment Cancelled, Diff Path Review Cancelled, Hypersegmented Neuts Cancelled, Atypical Lymphocytes Cancelled, Reactive Lymphocytes Cancelled, Smudge Cells Cancelled, Toxic Granulation Cancelled, Toxic Vacuolation Cancelled, Dohle Bodies Cancelled, Del Rods Cancelled, Platelet Estimate Cancelled, Plt Morphology Comment Cancelled, RBC Morphology Cancelled 08/22/24 20:59: RBC Morphology Cancelled, Polychromasia Cancelled, HypochromasiaCancelled, Basophilic Stippling Cancelled, Anisocytosis Cancelled, Microcytosis Cancelled, Macrocytosis Cancelled, Spherocytes Cancelled, Sickle Cells Cancelled, Target Cells Cancelled, Tear Drop Cells Cancelled, Ovalocytes Cancelled, Stomatocytes Cancelled, Serrano-Chandler Bodies Cancelled, Brennan Cells Cancelled, Bite Cells Cancelled, Crenated Cell Cancelled, Acanthocytes (Spur) Cancelled, Rouleaux Cancelled, Schistocytes Cancelled, Sodium 135, Potassium 3.7, Chloride 99, Carbon Dioxide 21.0, Anion Gap 15, BUN 16, Creatinine 1.00, Estim Creat Clear Calc 78.30, Est GFR (MDRD) Non-Af 74, BUN/Creatinine Ratio 15.6, Glucose 125 H, Calcium 9.3, Total Bilirubin 0.16, AST 14, ALT 9, Alkaline Phosphatase 75, Total Protein 6.8, Albumin 4.3, Globulin 2.5, Albumin/Globulin Ratio 1.7, Serum , Qual NEGATIVE, Ethyl Alcohol < 10.1, Syphilis Total Ab Nonreactive, Hep Bs Antigen Nonreactive, Hep Bs Antibody Nonreactive, Hepatitis C Antibody Nonreactive, HIV 1&2 Antibody Nonreactive 08/22/24 22:30: Urine Opiates Screen NEGATIVE, U Buprenorphine Qual NEGATIVE, UrOxycodone Screen NEGATIVE, Urine Methadone Screen PRESUMPTIVE POSITIVE, Urine Fentanyl Screen PRESUMPTIVE POSITIVE, Ur Barbiturates Screen NEGATIVE, Ur Phencyclidine Scrn NEGATIVE, Ur Amphetamines Screen PRESUMPTIVE POSITIVE, U Benzodiazepines Scrn NEGATIVE, Urine Cocaine Screen PRESUMPTIVE POSITIVE, U Cannabinoids Screen PRESUMPTIVE POSITIVE 08/23/24 06:50: WBC 6.0, RBC 5.05, Hgb 13.8, Hct 42.0, MCV 83.2, MCH 27.3, MCHC 32.9, RDW Std Deviation 40.2, RDW Coeff of Nilda 13.3, Plt Count 257, MPV 10.9, Immature Gran % (Auto) 0.200, Neut % (Auto) 41.1 L, Lymph % (Auto) 40.0, Sublette % (Auto) 8.9, Eos % (Auto) 8.1 H, Baso % (Auto) 1.7 H, Absolute Neuts (auto) 2.5, Absolute Lymphs (auto) 2.38, Nucleated RBC % 0 Physical Exam Const alert, oriented x3 and no apparent distress General Appearance: cooperative HEENT normocephalic, head/scalp atraumatic, moist oral mucous membranes and oropharynxnormal Eyes EOMs intact bilaterally Neck no lymphadenopathy and supple Lymph Lymphatic: no lymphedema noted Resp normal respiratory effort, normal air movement and clear to auscultation bilaterally Cardio regular rate, regular rhythm, S1 normal heart sound, S2 normal heart sound and no murmurs GI normal to inspection, nondistended, normoactive bowel sounds, soft to palpation,non-tender and non-distended Extremity normal capillary refill, no clubbing, cyanosis or edema and no calf tenderness General Extremity: no tenderness to palpation of joints or extremities Skin General Skin Exam: no breakdown Neuro CN's II-XII intact bilaterally, no focal motor deficits and no sensory deficits noted Motor Exam: strength 5/5 throughout and general weakness Psych thought process normal, cooperative and affect normal Appearance: appropriate Assessment & Plan Assessment/Plan (1) Desire for detoxification: (2) Opiate withdrawal: PLAN: Plan #Acute opioid withdrawal * usually snorts fentanyl. * Denies any symptoms of withdrawal. On opioid withdrawal protocol with buprenorphine adjunctive meds for symptomatic relief. Monitor COWS score * #Anxiety and depression: Currently not on any meds. Follow-up with PCP for medications as needed #Nicotine dependence: Counseled to quit. Nicotine patch as needed DVT prophylaxis: Low risk. Encourage ambulation. Charges/Coding Visit Charges Inpatient E&M: 47656 Subs Hosp L2 08/23/24 1703 <Electronically signed by Ericka Vera MD> Ericka Vera MD Cosigner Signature (if applicable): CC: ~ Signed [facility] Work Phone: 1(156) 908-345006-03-2025 Discharge summary Author Alok Mccray [facility] Note Date/Time August 23, 2024 12:35 am [facility] Medical Records Department [address] [place] [address] Emergency Department Summary 08/22/24 MR#: [id number] Acct: [id number] Name: JOHN MURCIA Rep #:[id number] : 1985 38 From: Alok ortizett DO PCP: Care Physician,No Primary Status :ADM IN Location: [place] [address] HPI History of Present Illness Chief Complaint: Substance Abuse Narrative Narrative: Chief complaint and HPI: Requesting detox from opiates. 38-year-old female withpast medical history of fentanyl abuse presents for detox from opiates. Patientstates she is a previous IV drug abuser however currently snorts fentanyl. Lastused yesterday. Endorses diffuse backaches and just feels generally unwell. Denies any other substance abuse. Denies any fever, chills, chest pain, shortness of breath, abdominal pain, nausea, vomiting. Review of systems: See HPI Medications: As listed on the chart Allergies: As listed on the chart PFSH: Per chart Vital signs: As listed on the chart. Reviewed. Physical exam: Gen: A&O x3, NAD Head: Normocephalic, atraumatic Eyes: No sclera icterus, conjunctiva clear, PERRL ENT: Moist mucous membranes Neck: Trachea midline, No JVD CV: RRR, no murmurs, no peripheral edema Resp: Lungs CTA BL, no w/r/c GI: Abd soft, non-distended, non-tender, no r/r/g Musc: Full ROM, no deformity Skin: Warm, dry Neuro: Alert, oriented, grossly intact, sensation intact Psych: Cooperative, appropriate mood and affect [facility] Medical History (Updated 08/22/24 @ 22:05 by Meera Monreal) Migraines Tobacco use Opiate abuse, continuous Anxiety and depression Hx MRSA infection Methamphetamine abuse Heroin abuse Home Medications ?Medication ?Instructions ?Recorded ?Last Taken ?Type NK 08/22/24 Unknown History Allergy/AdvReac Type Severity Reaction Status Date / Time No Known Allergies Allergy Verified 08/22/24 17:42 Family History Father Lymphoma Mother No problems noted. Surgical History History of incision and drainage IUD (intrauterine device) in place Social History (Updated 08/22/24 @ 21:[address] 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 Prior IVDA. do you feel safe at home: Yes EXAM Physical Exam Const Vital Signs: 08/22/24 17:42 Temperature 97.5 F L Temperature Source Oral Pulse Rate 65 Respiratory Rate 14 Blood Pressure 102/63 Blood Pressure Mean 76 Pulse Ox 99 Oxygen Delivery Method Room Air MDM MDM MDM Narrative Medical decision making narrative: 38-year-old female with past medical history of fentanyl abuse presents for detox from opiates. Differential diagnosis includes but is not limited to requesting detox from opiates, electrolyte abnormality, dehydration, polysubstance abuse. CMP without electrolyte abnormality or TAB. No transaminitis. Serumpregnancy negative. UA positive for methadone, fentanyl, amphetamines, cocaine,cannabis. Negative for alcohol. Patient will warrant admission. Hospitalist was contacted and patient was discussed. They accepted admission. Patient confirmed understanding the plan. Impression: 1. Requesting detox for opiate abuse 2. Polysubstance abuse Discharge Plan Disposition Disposition: Acute Care Hospital [facility] Discharge Date/Time: 08/22/24 21:40 What to do if you have Problems For any increased pain, shortness of breath, bleeding, nausea or vomiting, chestpain, or any unexpected problems, contact your Primary Care Provider. Call [facility] ([phone]) or report to the closest Emergency Room. Call 911 if necessary. 08/23/24 0035 <Electronically signed by Alok Mccray DO> Cosigner Signature (if applicable): CC: No Primary Care Physician ~ Signed [facility] Work Phone: 1(520) 170-171606-03-2025 Discharge summary [facility] Medical Records Department [address] [place] [address] Emergency Department Summary 08/22/24 MR#: [id number] Acct: [id number] Name: JOHN MURCIA Rep #:[id number] : 1985 38 From: Alok ortizett DO PCP: Care Physician,No Primary Status :ADM IN Location: MS3 UF161-7 HPI History of Present Illness Chief Complaint: Substance Abuse Narrative Narrative: Chief complaint and HPI: Requesting detox from opiates. 38-year-old female withpast medical historyof fentanyl abuse presents for detox from opiates. Patientstates she is a previous IV drug abuser however currently snorts fentanyl. Lastused yesterday. Endorses diffuse backaches and just feels gener ally unwell. Denies any other substance abuse. Denies any fever, chills, chest pain, shortness of breath, abdominal pain, nausea, vomiting. Review of systems: See HPI Medications: As listed on the chart Allergies: As listed on the chart PFSH: Per chart Vital signs: As listed on the chart. Reviewed. Physical exam: Gen: A&O x3, NAD Head: Normocephalic, atraumatic Eyes: No sclera icterus, conjunctiva clear, PERRL ENT: Moist mucous membranes Neck: Trachea midline, No JVD CV: RRR, no murmurs, no peripheral edema Resp: Lungs CTA BL, no w/r/c GI: Abd soft, non-distended, non-tender, no r/r/g Musc: Full ROM, no deformity Skin: Warm, dry Neuro: Alert, oriented, grossly intact, sensation intact Psych: Cooperative, appropriate mood and affect PFS PFSH Medical History (Updated 08/22/24 @ 22:05 by Meera Monreal) Migraines Tobacco use Opiate abuse, continuous Anxiety and depression Hx MRSA infection Methamphetamine abuse Heroin abuse Home Medications ?Medication ?Instructions ?Recorded ?Last Taken ?Type NK 08/22/24 Unknown History Allergy/AdvReac Type Severity Reaction Status Date / Time No Known Allergies Allergy Verified 08/22/24 17:42 Family History Father Lymphoma Mother No problems noted. Surgical History History of incision and drainage IUD (intrauterine device) in place Social History (Updated 08/22/24 @ 21:[address] 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 Prior IVDA. do you feel safe at home: Yes EXAM Physical Exam Const Vital Signs: 08/22/24 17:42 Temperature 97.5 F L Temperature Source Oral Pulse Rate 65 Respiratory Rate 14 Blood Pressure 102/63 Blood Pressure Mean 76 Pulse Ox 99 Oxygen Delivery Method Room Air MDM MDM MDM Narrative Medical decision making narrative: 38-year-old female with past medical history of fentanyl abuse presents for detox from opiates. Differential diagnosis includes but is not limited to requesting detox from opiates, electrolyte abnormality, dehydration, polysubstance abuse. CMP without electrolyte abnormality or TAB. No transaminitis. Serumpregnancy negative. UA positive for methadone, fentanyl, amphetamines, cocaine,cannabis. Negative for alcohol. Patient will warrant admission. Hospitalist was contacted and patient was discussed. They accepted admission. Patient confirmed understanding the plan. Impression: 1. Requesting detox for opiate abuse 2. Polysubstance abuse Discharge Plan Disposition Disposition: Acute Care Hospital [facility] Discharge Date/Time: 08/22/24 21:40 What to do if you have Problems For any increased pain, shortness of breath, bleeding, nausea or vomiting, chestpain, or any unexpected problems, contact your Primary Care Provider. Call [facility] ([phone]) or report tothe closest Emergency Room. Call 911 if necessary. 08/23/24 0035 Cosigner Signature (if applicable): CC: No Primary Care Physician ~ Signed [facility]06-02-2025 History and physical note Author Soraya Yoon [facility] Note Date/Time August 22, 2024 9:56p [facility] Medical Records Department [address] [place] [address] H&P Exam - Hospitalist 08/22/242037 MR#: [id number] Acct: [id number] Name: JOHN MURCIA Rep #:[id number] : 1985 38 From: Soraya Yoon MD PCP: Care Physician,No Primary Status :ADM IN Location: [place]3 MA770-3 HPI - General General Date of Admission: 08/22/24 Date of Service: 08/22/24 Chief Complaint: Acute opiate withdrawal HPI Narrative The patient is a 38 y/o F w/ PMHx: Polysubstance abuse (current opiate abuse with fentanayl 1.5 gm daily snorted, prior heroin abuse similarly snorted, priorIV drug abuse, former methamphetamine abuse, cannabis use), Tobacco use, Anxietyand Depression who presents to the [facility] ED on 08/22/2024 with noted acute opiate withdrawal onset starting on day of presentation following last dose of fentanyl the day prior in the morning with mild abdominalpain/cramping, generalized body aches and pains, fatigue and restlessness as well as diaphoresis. Patient interested in attaining clean status. Workup in theED included T97.5, heart rate 65, BP 102/63, respiratory rate 14, 99% on room air, CMP with glucose 125 otherwise unremarkable, serum testing negative, alcohol less than 10.1, awaiting lab to obtain CBC as patient was a difficult stick per discussion with ED staff. [facility] Medical History Anxiety and depression Tobacco use Opiate abuse, continuous Hx MRSA infection Methamphetamine abuse Heroin abuse Home Medications ?Medication ?Instructions ?Recorded ?Last Taken ?Type NK 08/22/24 Unknown History Allergy/AdvReac Type Severity Reaction Status Date / Time No Known Allergies Allergy Verified 08/22/24 17:42 Family History Father Lymphoma Mother No problems noted. Surgical History History of incision and drainage IUD (intrauterine device) in place Social History (Updated 08/22/24 @ 21:[address] 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 Prior IVDA. do you feel safe at home: Yes ROS ROS Narrative Admission Review of Systems: CONSTITUTIONAL: No weight loss, fever, chills, + weakness or fatigue. HEENT: + Mild congestion/rhinorrhea. Eyes: No visual loss, blurred vision, double vision or yellow sclerae. Ears, Nose, Throat: No hearing loss, sneezing, sore throat. SKIN: No rash or itching, lesions, wounds. CARDIOVASCULAR: No chest pain, chest pressure or chest discomfort, palpitations,edema, orthopnea, syncopal events. RESPIRATORY: No shortness of breath, cough or sputum, wheezing, hemoptysis. GASTROINTESTINAL: + anorexia, abdominal cramping. No nausea, vomiting, diarrhea, abdominal pain, melena, BRBPR. GENITOURINARY: No dysuria, frequency, urgency or retention. NEUROLOGICAL: + Restlessness. No headache, dizziness, syncope, paralysis, ataxia, numbness or tingling in the extremities, focal weakness, change in bowelor bladder control, seizure. MUSCULOSKELETAL: + muscle, back pain, joint pain or stiffness. HEMATOLOGIC: No anemia, bleeding or bruising. LYMPHATICS: No enlarged nodes. No history of splenectomy. PSYCHIATRIC: No history of depression or anxiety. ENDOCRINOLOGIC: + Diaphoresis. No cold or heat intolerance. No polyuria or polydipsia. ALLERGIES: No history of asthma, hives, eczema or rhinitis. Vital Signs Vital Signs Vital Signs: 08/22/24 17:42 Temperature 97.5 F L Temperature Source Oral Pulse Rate 65 Respiratory Rate 14 Blood Pressure 102/63 Blood Pressure Mean 76 Pulse Ox 99 Oxygen Delivery Method Room Air Physical Exam Narrative Physical Examination: General: Awake, alert, oriented x 3 and cooperative, seated upright in the ED bed fatigued, mildly restless. Skin: Normal color, normal turgor, no icterus, no cyanosis except occasional stage ecchymoses, abrasions. HEENT: AT/NC, EOMI, PERRLA, dry MM, no carotid bruits or JVD noted. Lungs: Mildly diminished, greater bases, appropriate effort, no rales, ronchi orwheezing. Heart: Regular rate and rhythm; no gallop, rub audible. Abdomen: Soft, mild generalized discomfort with no rebound or guarding, no marked distention, mildly hyperactive BS, no appreciated HSM. Extremities: No cyanosis, clubbing, or edema. Neurological: Patient awake, alert, oriented as noted, cognitive function intact; pupils equally reactive to light and accommodation, cranial nerves grossnormal, moving all 4 extremities, no focal deficits, strength mildly to moderately globally decreased given withdrawal, restless, mildly diaphoretic. Psychiatric: Affect appears fatigued, restless, no acute evidence of depressive or anxiety feelings but does have underlying history. Results Lab / Micro Data 08/22/24 20:59 08/22/24 20:59 Assessment & Plan Assessment/Plan (1) Opiate withdrawal: PLAN: Plan The patient is a 38 y/o F w/ PMHx: Polysubstance abuse (current opiate abuse with fentanayl 1.5 gm daily snorted, prior heroin abuse similarly snorted, priorIV drug abuse, former methamphetamine abuse, cannabis use), Tobacco use, Anxietyand Depression who presents to the [facility] ED on 08/22/2024 with noted acute opiate withdrawal onset. #1. Acute Opiate Withdrawal: Will admit to [place], routine labs including CBC, CMP,urine for drug screen obtained in the ED and pending upon evaluation, does have an IUD in however will await testing as long as negative will proceed with admission and will initiate and continue on protocol with tapering course of Subutex, as needed tylenol, ibuprofen, bowel regimen, gabapentin, Bentyl, Vistaril, methocarbamol, clonidine, PRN nightly trazodone for insomnia, IV fluids, IV antiemetics. Once patient clinically improved and completion of tapernearing will plan consultation with case management for transition to next levelof rehabilitation care. #2. Polysubstance Abuse with prior history of IV drug abuse: Given significant polysubstance abuse history with reported opiate, methamphetamine and heroin usewill request HIV, hepatitis and syphilis testing to be cautious. Encourage early PCP follow-up/establishment. #3. Anxiety and depression: Likely contributes greatly to underlying substance abuse history, per current list not on any regimen, would benefit from ongoing counseling/therapy and potentially medication, 180/case management/social work consulted. #4. Tobacco Abuse: Encouraged cessation, inpatient consultation per RT, NR if desired. #5. DVT prophylaxis: Low risk for type of presentation, encourage ambulation. Charges/Coding Visit Charges Inpatient E&M: 60356 Init Hosp L3 08/22/24 9096 <Electronically signed by Soraya Yoon MD> Cosigner Signature (if applicable): CC: Dr. Soraya Yoon MD; No Primary Care Physician~ Signed [facility] Work Phone: 1(140) 471-512206-02-2025 Evaluation note* Diagnosis Onset Date Resolution Status Admit Date Desire for detoxification acute August 22, 2024 8:39pm Opiate withdrawal acute August 8:39pm [facility] Work Phone: 1(651) 430-395306-02-2025 History and physical note [facility] Medical Records Department [address] [place] [address] H&P Exam - Hospitalist 08/22/242037 MR#: [id number] Acct: [id number] Name: JOHN MURCIA Rep #:[id number] : 1985 38 From: Soraya Yoon MD PCP: Care Physician,No Primary Status :ADM IN Location: [facility] OX893-3 HPI - General General Date of Admission: 08/22/24 Date of Service: 08/22/24 Chief Complaint: Acute opiate withdrawal HPI Narrative The patient is a 38 y/o F w/ PMHx: Polysubstance abuse (current opiate abuse with fentanayl 1.5 gm daily snorted, prior heroin abuse similarly snorted, priorIV drug abuse, former methamphetamine abuse, cannabis use), Tobacco use, Anxietyand Depression who presents to the [facility] ED on 08/22/2024 with noted acute opiate withdrawal onset starting on day of presentation following last dose of fentanyl the day prior in the morning with mild abdominalpain/cramping, generalized body aches and pains, fatigue and restlessness as well as diaphoresis. Patient interested in attaining clean status. Workup in theED included T97.5, heart rate 65, BP 102/63, respiratory rate 14, 99% on room air, CMP with glucose 125 otherwise unremarkable, serum testing negative, alcohol less than 10.1, awaiting lab to obtain CBC as patient was a difficult stick per discussion with ED staff. [facility] Medical History Anxiety and depression Tobacco use Opiate abuse, continuous Hx MRSA infection Methamphetamine abuse Heroin abuse Home Medications ?Medication ?Instructions ?Recorded ?Last Taken ?Type NK 08/22/24 Unknown History Allergy/AdvReac Type Severity Reaction Status Date / Time No Known Allergies Allergy Verified 08/22/24 17:42 Family History Father Lymphoma Mother No problems noted. Surgical History History of incision and drainage IUD (intrauterine device) in place Social History (Updated 08/22/24 @ 21:[address] 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 Prior IVDA. do you feel safe at home: Yes ROS ROS Narrative Admission Review of Systems: CONSTITUTIONAL: No weight loss, fever, chills, + weakness or fatigue. HEENT: + Mild congestion/rhinorrhea. Eyes: No visual loss, blurred vision, double vision or yellow sclerae. Ears, Nose, Throat: No hearing loss, sneezing, sore throat. SKIN: No rash or itching, lesions, wounds. CARDIOVASCULAR: No chest pain, chest pressure or chest discomfort, palpitations,edema, orthopnea, syncopal events. RESPIRATORY: No shortness of breath, cough or sputum, wheezing, hemoptysis. GASTROINTESTINAL: + anorexia, abdominal cramping. No nausea, vomiting, diarrhea, abdominal pain, melena, BRBPR. GENITOURINARY: No dysuria, frequency, urgency or retention. NEUROLOGICAL: + Restlessness. No headache, dizziness, syncope, paralysis, ataxia, numbness or tingling in the extremities, focal weakness, change in bowelor bladder control, seizure. MUSCULOSKELETAL: + muscle, back pain, joint pain or stiffness. HEMATOLOGIC: No anemia, bleeding or bruising. LYMPHATICS: No enlarged nodes. No history of splenectomy. PSYCHIATRIC: No history of depression or anxiety. ENDOCRINOLOGIC: + Diaphoresis. No cold or heat intolerance. No polyuria or polydipsia. ALLERGIES: No history of asthma, hives, eczema or rhinitis. Vital Signs Vital Signs Vital Signs: 08/22/24 17:42 Temperature 97.5 F L Temperature Source Oral Pulse Rate 65 Respiratory Rate 14 Blood Pressure 102/63 Blood Pressure Mean 76 Pulse Ox 99 Oxygen Delivery Method Room Air Physical Exam Narrative Physical Examination: General: Awake, alert, oriented x 3 and cooperative, seated upright in the ED bed fatigued, mildly restless. Skin: Normal color, normal turgor, no icterus, no cyanosis except occasional stage ecchymoses, abrasions. HEENT: AT/NC, EOMI, PERRLA, dry MM, no carotid bruits or JVD noted. Lungs: Mildly diminished, greater bases, appropriate effort, no rales, ronchi orwheezing. Heart: Regular rate and rhythm; no gallop, rub audible. Abdomen: Soft, mild generalized discomfort with no rebound or guarding, no marked distention, mildly hyperactive BS, no appreciated HSM. Extremities: No cyanosis, clubbing, or edema. Neurological: Patient awake, alert, oriented as noted, cognitive function intact; pupils equally reactive to light and accommodation, cranial nerves grossnormal, moving all 4 extremities, no focal deficits, strength mildly to moderately globally decreased given withdrawal, restless, mildly diaphoretic. Psychiatric: Affect appears fatigued, restless, no acute evidence of depressive or anxiety feelingsbut does have underlying history. Results Lab / Micro Data 08/22/24 20:59 08/22/24 20:59 Assessment & Plan Assessment/Plan (1) Opiate withdrawal: PLAN: Plan The patient is a 38 y/o F w/ PMHx: Polysubstance abuse (current opiate abuse with fentanayl 1.5 gm daily snorted, prior heroin abuse similarly snorted, priorIV drug abuse, former methamphetamine abuse, cannabis use), Tobacco use, Anxietyand Depression who presents to the [facility] ED on 08/22/2024 with noted acute opiate withdrawal onset. #1. Acute Opiate Withdrawal: Will admit to [place], routine labs including CBC, CMP,urine for drug screen obtained in the ED and pending upon evaluation, does have an IUD in however will await testing as long as negative will proceed with admission and will initiate and continue on protocol with tapering course of Subutex, as needed tylenol, ibuprofen, bowel regimen, gabapentin, Bentyl, Vistaril, methocarbamol, clonidine, PRN nightly trazodone for insomnia, IV fluids, IV antiemetics. Once patient clinically improved and completion of tapernearing will plan consultation with case management for transition to next levelof rehabilitation care. #2. Polysubstance Abuse with prior history of IV drug abuse: Given significant polysubstance abuse history with reported opiate, methamphetamine and heroin usewill request HIV, hepatitis and syphilistesting to be cautious. Encourage early PCP follow-up/establishment. #3. Anxiety and depression: Likely contributes greatly to underlying substance abuse history, per current list not on any regimen, would benefit from ongoing counseling/therapy and potentially medication, 180/case management/social work consulted. #4. Tobacco Abuse: Encouraged cessation, inpatient consultation per RT, NR if desired. #5. DVT prophylaxis: Low risk for type of presentation, encourage ambulation. Charges/Coding Visit Charges Inpatient E&M: 01623 Init Hosp L3 08/22/242155 Cosigner Signature (if applicable): CC: Dr. Soraya Yoon MD; No Primary Care Physician~ Signed [facility]02-17-2025 Note. MICRO - Microbiology PROCEDURE: Blood Culture (fungal and bacterial) [*1] SOURCE: Blood BODY SITE: COLLECTED DATE/TIME: 04/11/2024 15:37 EST RECEIVED DATE/TIME: 04/11/2024 15:50 EST START DATE/TIME: 04/11/2024 15:50 EST FREE TEXT SOURCE: FINAL REPORTS Final Report [] Verified Date/Time/Personnel: 05/09/2024 08:26 EST Blood Culture with fungus: No growth at 4 weeks. PRELIMINARY REPORTS Preliminary Report [] Verified Date/Time/Personnel: 04/11/2024 16:59 EST Culture has been received in lab and is no growth to date. Culture will be held for four weeks. Performing Locations *1: This test was performed at: [facility], [address] [place] [address], [facility] , [facility] [id number] Note. MICRO - Microbiology PROCEDURE: Blood Culture (bacterial) [*1] SOURCE: Blood BODY SITE: COLLECTED DATE/TIME: 04/11/2024 17:04 EST RECEIVED DATE/TIME: 04/11/2024 17:24 EST START DATE/TIME: 04/11/2024 17:24 EST FREE TEXT SOURCE: FINAL REPORTS Final Report [] Verified Date/Time/Personnel: 04/16/2024 17:59 EST Blood Culture: No Growth at 5 days. PRELIMINARY REPORTS Preliminary Report [] Verified Date/Time/Personnel: 04/11/2024 17:59 EST Culture has been received in lab and is no growth to date. Routine cultures are held for 5 days. Performing Locations *1: This test was performed at: [address], [address] [place] [address] [id number] Note. MICRO - Microbiology PROCEDURE: Blood Culture (bacterial) [*1] SOURCE: Blood BODY SITE: COLLECTED DATE/TIME: 04/11/2024 12:02 EST RECEIVED DATE/TIME: 04/11/2024 13:02 EST START DATE/TIME: 04/11/2024 13:02 EST FREE TEXT SOURCE: FINAL REPORTS Final Report [] Verified Date/Time/Personnel: 04/16/2024 13:59 EST Blood Culture: No Growth at 5 days. PRELIMINARY REPORTS Preliminary Report [] Verified Date/Time/Personnel: 04/11/2024 13:59 EST Culture has been received in lab and is no growth to date. Routine cultures are held for 5 days. Performing Locations *1: This test was performed at: [address], [address] [place] [address] [id number] Note. MICRO - Microbiology PROCEDURE: Blood Culture (bacterial) [*1] SOURCE: Blood BODY SITE: COLLECTED DATE/TIME: 04/11/2024 12:04 EST RECEIVED DATE/TIME: 04/11/2024 13:02 EST START DATE/TIME: 04/11/2024 13:02 EST FREE TEXT SOURCE: FINAL REPORTS Final Report [] Verified Date/Time/Personnel: 04/16/2024 13:59 EST Blood Culture: No Growth at 5 days. PRELIMINARY REPORTS Preliminary Report [] Verified Date/Time/Personnel: 04/11/2024 13:59 EST Culture has been received in lab and is no growth to date. Routine cultures are held for 5 days. Performing Locations *1: This test was performed at: [facility], [address] [place] [address], [address] , [facility] [id number] Osullivan [facility] September 06, 2022 9:18am Note Date/Time September 06, 2022 7:36 am [facility] Medical Records Department [address] [place] [address] Progress Note - Hospitalist 09/06/22 0735 MR#: [id number] Acct: [id number] Name: JOHN MURCIA Rep #:[id number] : 1985 36 From: Rhys Dang PCP: Care Physician,No Primary Status :ADM IN Location: [place] [address] Reason for Visit Reason for Visit: Diagnoses Hypokalemia (09/05/22) Opioid dependence with withdrawal (09/05/22) Nicotine dependence, cigarettes, uncomplicated (09/05/22) Major depressive disorder, single episode, unspecified (09/05/22) Anxiety disorder, unspecified (09/05/22) Objective Data Objective Data Vital Signs: Vital Signs Temp Pulse Resp BP Pulse Ox O2 Del Method 98.2 F 78 14 119/60 97 Room Air 09/06/22 02:00 09/06/22 02:00 09/06/22 02:00 09/06/22 02:00 09/06/22 02:00 09/06/22 02:00 Oxygen Delivery Method Room Air Weight: 176 lb 5.917 oz Body Mass Index (BMI) 29.3 Intake & Output: Intake and Output for Last 24 Hours 09/04/22 09/05/22 09/06/22 23:59 23:59 23:59 Intake Total 500 / 500 Balance 500 / 500 Lab / Micro Data Result Diagrams: 09/05/22 17:45 09/05/22 17:45 Labs: Laboratory Results - last 24 hr 09/05/22 17:45: WBC 7.7, RBC 4.45, Hgb 12.7, Hct 37.9, MCV 85.2, MCH 28.5, MCHC 33.5, RDW Std Deviation 39.1, RDW Coeff of Nilda 12.6, Plt Count 282, MPV 10.5, Immature Gran % (Auto) 0.300, Neut % (Auto) 54.7, Lymph % (Auto) 28.2, Sublette % (Auto) 8.8, Eos % (Auto) 7.1 H, Baso % (Auto) 0.9, Absolute Neuts (auto) 4.2, Absolute Lymphs (auto) 2.18, Nucleated RBC % 0 09/05/22 17:45: Sodium 139, Potassium 3.4 L, Chloride 104, Carbon Dioxide 28.0, Anion Gap 7, BUN 13, Creatinine 0.75, Estim Creat Clear Calc 93.31, Est GFR (MDRD) Af Amer 112, Est GFR (MDRD) Non-Af 92, BUN/Creatinine Ratio 17.3, Glucose 104, Calcium 8.7, Total Bilirubin 0.30, AST 11 L, ALT 13, Alkaline Phosphatase 64, Total Protein 7.2, Albumin 3.5, Globulin 3.7, Albumin/Globulin Ratio 0.9 09/05/22 17:53: Urine Opiates Screen NEGATIVE, Urine Methadone Screen NEGATIVE, Ur Barbiturates Screen NEGATIVE, Ur Phencyclidine Scrn NEGATIVE, Ur AmphetaminesScreen POSITIVE H, MDMA (Ecstasy) Screen POSITIVE H, U Benzodiazepines Scrn NEGATIVE, Urine Cocaine Screen NEGATIVE, U Cannabinoids Screen POSITIVE H, Ur Drug Screen Comment 09/05/22 17:53: Urine Test Negative Physical Exam Narrative Seen and examined in the presence of patient's nurse. Denies IV use of needle. Admitted for opioid withdrawal symptom. Physical exam General: Awake. Mild lethargic and sleepy. Oriented x3. HEENT: Atraumatic, PERRLA, EOMI, Normocephalic Oral: Oral mucosa dry. No Gingival or Mucosal Lesions/ Ulcerations Neck: Supple, No JVD, Negative Carotid Bruits Lungs: Air entry diminished in bilateral lung bases. No crepitation/rhonchi Cardiovascular: Regular rate, Regular Rhythm, Normal S1, Normal S2, No murmurs Abdomen: Bowel Sounds Present, Soft, Non Tender, Non-Distended : No renal angle tenderness. No suprapubic tenderness. Extremities: No edema, Capillary Refill Less than 3 Seconds Skin: No rashes, No breakdown Musculoskeletal: No Tenderness to Palpation of Joints or Extremities Neurological: Cranial nerves II-XII grossly intact, DTR 2+/4 and Symmetrical, Neuro grossly intact Psych/Mental Status: Flat affect. Denies suicidal ideation Assessment & Plan Assessment/Plan (1) Opiate withdrawal: PLAN: With history of chronic opioid use, dependence and tolerance: The patient is started on buprenorphine along with other adjunctive medications as needed for medical stabilization as per order set of opioid withdrawal syndrome.Patient also on trazodone, hydroxyzine, gabapentin as needed ordered. Advised quittingopioid use. music store manager consult. CINA and COWS score. (2) Hypokalemia: PLAN: Potassium low. Was repleted. Repeat potassium magnesium and phosphorus. (3) Anxiety and depression: PLAN: She denies any thoughts of suicide, suicidal attempt. (4) Tobacco dependence due to cigarettes: PLAN: Plan FULL CODE, confirmed with patient DVT prophylaxis - Encourage ambulation Charges/Coding Visit Charges Inpatient E&M: 62610 Subs Hosp L2 09/06/22 0918 <Electronically signed by Rhys Osullivan MD> Cosigner Signature (if applicable): CC: ~ Signed [facility] Work Phone: 1([phone]) 350-263706-17-[address] Lizama [facility] September 06, 2022 12:20am Note Date/Time September 05, 2022 5:10 pm [facility] Medical Records Department [address] [place] [address] Emergency Department Summary 09/05/22 MR#: [id number] Acct: [id number] Name: JOHN MURCIA Rep #:[id number] : 1985 36 From: Kristine CORTES PCP: Care Physician,No Primary Status :ADM IN Location: [facility] [id number] HPI <SOPHIA Braxton - Last Filed: 09/05/22 19:25> History of Present Illness Chief Complaint: Substance Abuse Narrative Narrative: Patient presenting today requesting detox from fentanyl and heroin. She reportsshe primarily uses fentanyl and uses 1.5 g daily, she last used yesterday morning. She snorts the fentanyl, has not injected any drugs in over a year. She has been using for the past year and a half, was clean for a few years before that, but does have a history of drug abuse over the past several years. She reports that she is starting to go through withdrawal, her nose is running, she feels anxious, and she has myalgias. She denies a PMH of any chronic healthconditions. PFSH <SOPHIA Braxton - Last Filed: 09/05/22 19:25> PFSH Medical History (Updated 09/05/22 @ 18:[address] Sancho Lizama MD) Finger fracture Heroin abuse Hx MRSA infection Methamphetamine abuse Opioid abuse Home Medications NK 09/05/22 [History Last Taken Unknown] Allergy/AdvReac Type Severity Reaction Status Date / Time No Known Allergies Allergy Verified 09/05/22 16:37 Family History (Updated 09/05/22 @ 18:[address] Shayna Jeff MD) Other No pertinent family history Surgical History (Updated 09/05/22 @ 18:[address] Shayna Jeff MD) IUD (intrauterine device) in place Social History (Updated 09/05/22 @ 18:[address] 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 Smoking Status: Heavy Smoker (>10/day) Electronic Cigarette Use: not used alcohol intake: former year quit: 2007 details: never a heavy drinker substance use type: opiates do you feel safe at home: Yes ROS <SOPHIA Braxton - Last Filed: 09/05/22 19:25> ROS ED Constitutional Constitutional ED: Denies chills or fever(s) ENT ENT ED: Reports rhinorrhea Cardiovascular Cardiovascular: Denies chest pain Respiratory/Chest Respiratory/Chest: Denies cough or dyspnea Gastrointestinal Gastrointestinal: Denies abdominal pain, nausea or vomiting Musculoskeletal Musculoskeletal: Reports myalgias; Denies arthralgias Integumentary Denies abscess, Abrasions or rash Neurologic Neurologic: Denies weakness Psychiatric Psychiatric: Reports anxiety EXAM <SOPHIA Braxton - Last Filed: 09/05/22 19:25> Physical Exam Const Vital Signs: 09/05/22 16:34 Temperature 97.1 F L Temperature Source Temporal Pulse Rate 87 Respiratory Rate 19 H Blood Pressure 143/92 H Blood Pressure Mean 109 Pulse Ox 100 Oxygen Delivery Method Room Air Positive well nourished, well developed and no apparent distress General Appearance ED: well developed HEENT Reports normocephalic and head/scalp atraumatic Mouth ED: Yes moist mucous membranes normal Eyes PERRL and EOMs intact bilaterally Neck full ROM and supple Chest Wall inspection of chest normal Resp normal respiratory effort and clear to auscultation bilaterally Cardio regular rate and regular rhythm GI soft to palpation, non-tender, non-distended and no masses Back/Spine normal ROM and normal to inspection Extremity normal to inspection and full ROM Neuro oriented x3, CN's II-XII intact bilaterally, moves all extremities, no focal motor deficits and no sensory deficits noted Sensorium / Orientation: awake and alert Psych mental status grossly normal and thought process normal Skin no rashes or lesions noted and no wounds <Dr. Sancho Lizama MD - Last Filed: 09/06/22 00:20> Physical Exam Const Vital Signs: 09/05/22 16:34 Temperature 97.1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 Dates No Primary Care Physician Primary Care Provider Active Start: August 22, 2024 End: August 23, 2024 Dr. Alok Mccray , Emergency Provider Activ e Start: August 22, 2024 End: August 23, 2024 Dr. Soraya Yoon MD Admit Provider Active St art: August 22, 2024 End: August 23, 2024 Dr. Soraya Yoon MD Other Provider Active St art: August 22, 2024 End: August 23, 2024 Dr. Ericka Vera MD Attending Provider Active Start: August 22, 2024 End: August 23, 2024 Team Status: Active Member Role Status Dates No Primary Care Physician Primary Care Provider Active Start: August 23, 2024 Dr. Alok Mccray DO Emergency Provider Activ e Start: August 23, 2024 Dr. Soraya Yoon MD Admit Provider Active St art: August 23, 2024 Dr. Soraya Yoon MD Other Provider Active St art: August 23, 2024 Dr. Ericka Vera MD Attending Provider Active Start: August 23, 2024 Dr. Ericka Vera MD Other Provider Active St art: August 23, 2024 Team Status: Active Member Role Status Dates No Primary Care Physician Family Provider Active No Primary Care Physician Primary Care Provider Active Team Status: Active Member Role Status Dates No Primary Care Physician Primary Care Provider Active Dr. Sancho Lizama MD Emergency Provider Active Dr. Shayna Jeff MD Attending Provider Active Team Status: Active Member Role Status Dates No Primary Care Physician Primary Care Provider Active Dr. Sancho Lizama MD Emergency Provider Active Dr. Shayna Jeff MD Admit Provider, Attending Prov ider Active Team Status: Active Member Role Status Dates No Primary Care Physician Primary Care Provider Active Dr. Sancho Lizama MD Emergency Provider Active Dr. Shayna Jeff MD Admit Provider, Other Provider Active Dr. Rhys Osullivan MD Attending Provider, Other Provi ene Active Team Status: Inactive Member Role Status Dates No Primary Care Physician Primary Care Provider Active Dr. Sancho Lizama MD Emergency Provider Active Dr. Shayna Jeff MD Admit Provider, Other Provider Active Dr. Rhys Osullivan MD Attending Provider Active Team Status: Active Member Role Status Dates No Primary Care Physician Primary Care Provider Active Team Status: Active Member Role Status Dates No Primary Care Physician Primary Care Provider Active Start: August 22, 2024 Dr. Alok Mccray DO Emergency Provider Activ e Start: August 22, 2024 Dr. Soraya Yoon MD Admit Provider Active St art: August 22, 2024 Dr. Soraya Yoon MD Attending Provider Active Start: August 22, 2024 Team Status: Inactive Member Role Status Dates No Primary Care Physician Primary Care Provider Active Start: August 22, 2024 End: August 23, 2024 Dr. Alok Mccray DO Emergency Provider Activ e Start: August 22, 2024 End: August 23, 2024 Dr. Soraya Yoon MD Admit Provider Active St art: August 22, 2024 End: August 23, 2024 Dr. Soraya Yoon MD Other Provider Active St art: August 22, 2024 End: August 23, 2024 Dr. Ericka Vera MD Attending Provider Active Start: August 22, 2024 End: August 23, 2024 Team Status: Active Member Role Status Dates No Primary Care Physician Primary Care Provider Active Start: August 23, 2024 Dr. Alok Mccray DO Emergency Provider Activ e Start: August 23, 2024 Dr. Soraya Yoon MD Admit Provider Active St art: August 23, 2024 Dr. Soraya Yoon MD Other Provider Active St art: August 23, 2024 Dr. Ericka Vera MD Attending Provider Active Start: August 23, 2024 Dr. Ericka Vera MD Other Provider Active St art: August 23, 2024 FOR RECORDS PERTAINING TO PATIENTS WHO ARE OR HAVE BEEN ENROLLED IN A CHEMICAL DEPENDENCY/SUBSTANCEABUSE PROGRAM, SOME INFORMATION MAY BE OMITTED. This clinical summary was aggregated from multiple sources. Caution should be exercised in using it in the provision of clinical care. This summary normalizes information from multiple sources, and as a consequence, information in this document may materially change the coding, format and clinical context of patient data. In addition, data may be omitted in some cases. CLINICAL DECISIONS SHOULD BE BASED ON THE PRIMARY CLINICAL RECORDS. [facility] provides no warranty or guarantee of the accuracy or completeness of information in this document.
== END 2024-08-23 16:55 | disposition left against medical advice (07) | DRG 770 ==
LOC: ED 21:01 → MS3 21:28
PROVIDERS: Admitting Provider Family Medicine; Emergency Provider Surgery; Visit Provider Student in an Organized Health Care Education/Training Program
DX: F11.23 Opioid dependence with withdrawal (principal); F15.10 Other stimulant abuse, uncomplicated; F12.90 Cannabis use, unspecified, uncomplicated; F32.A Depression, unspecified; F17.200 Nicotine dependence, unspecified, uncomplicated; F41.9 Anxiety disorder, unspecified
CPT/HCPCS: 36415; 80053; 80307; 82077; 84703; 85025; 86703; 86706; 86780; 86803; 87340; 97802; 99221; 99283; G0378